=== PATIENT | male | born 1945 | race Caucasian/White ===

== ENCOUNTER 2017-04-28 21:23 | Emergency (ER) | payer BC ==
[~2017-04-28] VITALS: Ht 180.3 cm; Wt 111.9 kg
[~2017-04-28 21:23] MED LIST: DOXYCYCLINE HYCLATE 100 MG CAP PO ONE
[2017-04-28 21:28] VITALS: TEMP 36.7; Ht 180.3 cm; Wt 111.9 kg
[2017-04-28] MEDS ORDERED: SODIUM CHLORIDE 0.9% 500ML 500 ML IV STA (21:47)
[2017-04-28] MEDS ORDERED: HYDROmorphone INJ 1 MG/ML SYR IV STA (21:47)
[2017-04-28] MEDS ORDERED: ONDANSETRON INJ 2 MG/ML 2 ML VIAL IV STA (21:47)
--- NOTE | 2017-04-28 21:59 | EMERGENCY ROOM VISIT NOTE ---
History Report prepared by Radha: Mandie Sofia Under the Supervision of: Dr. Jose Carlos Graff M.D. First contact with patient: 21:36 Chief Complaint: FOOT PAIN Stated Complaint: DISCOLORATION OF FEET W/PAIN,SENT BY History of Present Illness The patient is a 71 year old male who presents to the Emergency Room with complaints of constant bilateral foot pain beginning 1 week ago. The patient states that he has been having foot pain for 1 week. He complains of discoloration and reports that he was seen by his doctor and they thought that it was his diabetes and he was placed on Lyrica. He notes that he had an arterial ultrasound this morning that showed some occlusion and was told to come in to the ED. 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 He rates his pain as a 9/10 in severity. Source of History: patient Onset: 1 week ago Position: foot (bilateral) Symptom Intensity: 9/10 Timing: constant Note: Pt complains of discoloration. Review of Systems See HPI for pertinent positives & negatives. A total of 10 systems reviewed and were otherwise negative. Past Medical & Surgical Medical Problems: (1) Atrial fibrillation (2) Diabetes (3) Heart disease (4) Pacemaker Surgical Problems: (1) H/O heart artery stent Family History Cancer Diabetes mellitus Heart disease Hypertension Lung disease Social History Smoking Status: Never Smoker Smokeless Tobacco Use: No Alcohol Use: occasionally Marital Status: Housing Status: lives with significant other Occupation Status: retired Current/Historical Medications Scheduled Amiodarone Hcl (Cordarone), 200 MG PO DAILY Aspirin (Aspirin Ec), 81 MG PO DAILY Atorvastatin (Lipitor), 40 MG PO DAILY Budesonide/Formoterol Fumarate (Symbicort 80/4.5 Inhaler), 2 PUFFS INH BID Ezetimibe (Zetia), 10 MG PO DAILY Glipizide Xl (Glucotrol Xl), 10 MG PO QAM Glipizide Xl (Glucotrol Xl), 5 MG PO QPM Insulin Glargine (Lantus Solostar), 25 UNITS SQ QAM Insulin Lispro (Human) (Humalog Kwikpen), SQ AC Metoprolol Succinate (Toprol Xl), 50 MG PO DAILY Nitroglycerin (Nitrostat), 0.4 MG UT PRN Omeprazole (Prilosec), 20 MG PO DAILY Pregabalin (Lyrica), 50 MG PO BID Sertraline (Zoloft), 50 MG PO HS Warfarin Sodium (Coumadin), 1.5 MG PO MON&FRI Warfarin Sodium (Coumadin), 3 MG PO 5XWK Scheduled PRN Albuterol Hfa (Ventolin Hfa), 2 PUFFS INH Q6H PRN for SOB/Wheezing Allergies Coded Allergies: No Known Allergies (Unverified , 04/28/17) Physical Exam Vital Signs Date Time Temp Pulse Resp B/P (MAP) Pulse Ox O2 Delivery O2 Flow Rate FiO2 04/29/17 00:22 60 16 149/85 93 04/28/17 23:44 60 16 158/85 95 Room Air 04/28/17 23:00 60 18 131/74 97 Room Air 04/28/17 22:38 60 04/28/17 22:22 95 Nasal Cannula 2.0 04/28/17 22:18 62 14 126/63 85 Room Air 04/28/17 21:28 36.7 72 18 110/67 95 Room Air Physical Exam GENERAL: Patient is a healthy-appearing well-nourished male HEAD: Normocephalic atraumatic EYES: Ocular movements intact pupils equal and react to light OROPHARYNX mucous membranes are moist no exudates present no erythema or edema present NECK: Supple no nuchal rigidity CHEST: Good equal expansion LUNGS: Clear and equal to auscultation CARDIAC: Normal S1 and S2 ABDOMEN: Soft nontender no guarding BACK: No CVA tenderness EXTREMITIES: I was able to Doppler the posterior tibial and dorsal pedal pulses. NEURO: Patient is following commands and answering questions appropriately. Alert and oriented x3 Cranial Nerves 2-12 grossly intact Medical Decision & Procedures Laboratory Results 04/28/17 21:50 Red Blood Count 3.57, Mean Corpuscular Volume 95.8, Mean Corpuscular Hemoglobin 30.8, Mean Corpuscular Hemoglobin Concent 32.2, Mean Platelet Volume 9.7, Neutrophils (%) (Auto) 60.2, Lymphocytes (%) (Auto) 22.5, Monocytes (%) (Auto) 13.6, Eosinophils (%) (Auto) 2.7, Basophils (%) (Auto) 0.3, Neutrophils # (Auto ) 4.28, Lymphocytes # (Auto) 1.60, Monocytes # (Auto) 0.97, Eosinophils # (Auto ) 0.19, Basophils # (Auto) 0.02 04/28/17 21:50 Test 04/28/17 21:50 04/28/17 22:00 White Blood Count 7.11 K/uL (4.8-10.8) Red Blood Count 3.57 M/uL (4.7-6.1) Hemoglobin 11.0 g/dL (14.0-18.0) Hematocrit 34.2 % (42-52) Mean Corpuscular Volume 95.8 fL (80-100) Mean Corpuscular Hemoglobin 30.8 pg (25-34) Mean Corpuscular Hemoglobin Concent 32.2 g/dl (32-36) Platelet Count 166 K/uL (130-400) Mean Platelet Volume 9.7 fL (7.4-10.4) Neutrophils (%) (Auto) 60.2 % Lymphocytes (%) (Auto) 22.5 % Monocytes (%) (Auto) 13.6 % Eosinophils (%) (Auto) 2.7 % Basophils (%) (Auto) 0.3 % Neutrophils # (Auto) 4.28 K/uL (1.4-6.5) Lymphocytes # (Auto) 1.60 K/uL (1.2-3.4) Monocytes # (Auto) 0.97 K/uL (0.11-0.59) Eosinophils # (Auto) 0.19 K/uL (0-0.5) Basophils # (Auto) 0.02 K/uL (0-0.2) RDW Standard Deviation 53.3 fL (36.4-46.3) RDW Coefficient of Variation 15.1 % (11.5-14.5) Immature Granulocyte % (Auto) 0.7 % Immature Granulocyte # (Auto) 0.05 K/uL (0.00-0.02) Prothrombin Time 40.4 SECONDS (9.0-12.0) Prothromb Time International Ratio 3.6 (0.9-1.1) Activated Partial Thromboplast Time 55.6 SECONDS (21.0-31.0) Partial Thromboplastin Ratio 2.1 Est Creatinine Clear Calc Drug Dose 35.0 ml/min Estimated GFR () 29.1 Estimated GFR (Non- 25.1 BUN/Creatinine Ratio 15.2 (10-20) Calcium Level 8.3 mg/dl (8.5-10.1) Total Bilirubin 0.4 mg/dl (0.2-1) Direct Bilirubin 0.1 mg/dl (0-0.2) Aspartate Amino Transf (AST/SGOT) 37 U/L (15-37) Alanine Aminotransferase (ALT/SGPT) 44 U/L (12-78) Alkaline Phosphatase 109 U/L (45-117) Total Protein 7.3 gm/dl (6.4-8.2) Albumin 2.9 gm/dl (3.4-5.0) Lipase 55 U/L (73-393) Bedside Hemoglobin 10.9 g/dl (14.0-18.0) Bedside Hematocrit 32 % (42-52) Bedside Sodium 141 mEq/L (135-144) Bedside Potassium 3.8 mEq/L (3.3-5.0) Bedside Chloride 106 mEq/L (101-112) Bedside Total CO2 23 mEq/l (24-31) Anion Gap 17.0 mmol/L (16-25) Bedside Blood Urea Nitrogen 36 mg/dl (7-18) Bedside Creatinine 2.3 mg/dl (0.6-1.3) Bedside Glucose (other) 136 mg/dl (70-99) Bedside Ionized Calcium (Nikky) 1.11 mmol/l (1.12-1.32) Labs reviewed by ED physician. Medications Administered Medications (Trade) Dose Ordered Sig/Marti Route Start Time Stop Time Status Last Admin Dose Admin Hydromorphone HCl (Dilaudid Inj) 1 mg NOW STAT IV 04/28/17 21:47 04/28/17 21:48 DC 04/28/17 22:12 1 MG Sodium Chloride 500 ml @ 999 mls/hr Q31M STAT IV 04/28/17 21:47 04/28/17 22:17 DC 04/28/17 22:11 999 MLS/HR Ondansetron HCl (Zofran Inj) 4 mg NOW STAT IV 04/28/17 21:47 04/28/17 21:48 DC 04/28/17 22:12 4 MG Piperacillin Sod/ Tazobactam Sod (Zosyn Iv) 4.5 gm NOW STAT IV 04/28/17 22:40 04/28/17 22:42 DC 04/28/17 22:56 4.5 GM Doxycycline Hyclate (Vibramycin Cap) 100 mg NOW ONCE PO 04/28/17 00:15 04/29/17 00:02 DC 04/29/17 00:16 100 MG Tramadol HCl (Ultram Home Pack) 1 homepack NOW ONCE PO 04/29/17 00:15 04/29/17 00:16 DC 04/29/17 00:16 1 HOMEPACK ED Course 2135: Past medical records reviewed. The patient was evaluated in room C2. A complete history and physical examination was performed. 2146: Zofran Inj 4mg IV, Sodium Chloride 500 ml @ 999 mls/hr IV, Dilaudid Inj 1mg IV. 2211: Per review, the patient's artery has been occluded since 2015. 2239: Vancomycin HCl 1gm IV, Zosyn IV 4.5gm IV. 2240: I spoke to Dr. Up about the patients case, he has agreed to evaluate the patient for further management and care. 2249: Upon reexamination the patient is doing well . I discussed results and treatment plan with the patient. He verbalizes agreement and understanding. I spoke with Dr. Up from the [facility] Hospitalist Service. The patient will be evaluated for further management. Medical Decision Differential diagnosis: Etiologies such as DVT, musculoskeletal, infection, joint effusion, trauma, lymphedema, idiopathic, CHF, as well as others were entertained.. Medication Reconciliation: I attest that I have personally reviewed the patient' s current medication list Blood Pressure Screening: Patient was found to have normal blood pressure on screening and does not require follow up. This is a 71-year-old who presents emergency department complaining of right foot pain. The patient had an outpatient ultrasound done down at [place] which is concerning for a right posterior tibial artery occlusion. In reviewing this patient's chart he had an ultrasound performed 2016 which showed same occlusion. I suspect that this is chronic. In addition the patient has good distal pulses in the foot that I am able to Doppler on exam. He does appear to have areas of cellulitis therefore I did discuss the case with the hospitalist service Consults Time Called: 2239 Consulting Physician: Dr. Up - [facility] Returned Call: [address] Up about the patients case, he has agreed to evaluate the patient for further management and care. Impression Primary Impression: Cellulitis Additional Impression: Leg pain Scribe Attestation The scribe's documentation has been prepared under my direction and personally reviewed by me in its entirety. I confirm that the note above accurately reflects all work, treatment, procedures, and medical decision making performed by me. Departure Information Dispostion Being Evaluated By Hospitalist Referrals Shakeel Costa D.O. (PCP) Patient Instructions My [facility] Problem Qualifiers Primary Impression: Cellulitis Site of cellulitis: extremity Site of cellulitis of extremity: lower extremity Laterality: right Qualified Codes: L03.115 - Cellulitis of right lower limb Additional Impression: Leg pain Laterality: right Qualified Codes: M79.604 - Pain in right leg
[2017-04-28 22:01] LABS: BASO % 0.3 %; BASO ABS # 0.02 K/uL (0-0.2); COMPLETE YES; EOS % 2.7 %; HEMATOCRIT 34.2 % (42-52); IG% 0.7 %; LYMPH % 22.5 %; MEAN CELL VOLUME 95.8 fL (80-100); MEAN CORPUSCULAR HEMOGLOBIN 30.8 pg (25-34); MEAN CORPUSCULAR HGB CONC 32.2 g/dl (32-36); MEAN PLATELET VOLUME 9.7 fL (7.4-10.4); MONO % 13.6 %; NEUT % 60.2 %; PLATELET COUNT 166 K/uL (130-400); RED BLOOD COUNT 3.57 M/uL (4.7-6.1); WHITE BLOOD COUNT 7.11 K/uL (4.8-10.8)
[2017-04-28 22:11] LABS: ISTAT CREATININE 2.3 mg/dl (0.6-1.3); ISTAT HEMOGLOBIN 10.9 g/dl (14.0-18.0); ISTAT IONIZED CALCIUM 1.11 mmol/l (1.12-1.32)
[2017-04-28 22:21] LABS: BUN/CREATININE RATIO 15.2 (10-20); CALCIUM 8.3 mg/dl (8.5-10.1); CREATININE 2.5 mg/dl (0.60-1.40); PARTIAL THROMBOPLASTIN RATIO 2.1; POTASSIUM 3.8 mmol/L (3.5-5.1); PROTHROMBIN TIME (PATIENT) 40.4 SECONDS (9.0-12.0)
[2017-04-28 22:32] LABS: INR 3.6 (0.9-1.1)
[2017-04-28] MEDS: VANCOMYCIN 1GM/270ML NSS IV STA ×2 (22:40→22:57)
[2017-04-28] MEDS ORDERED: PIPERACILLIN/TAZOBACTAM 4.5 GM/100ML D5W IV STA (22:40)
[2017-04-28] MEDS ORDERED: SYMIN/8045 INH (22:57)
[2017-04-28] MEDS ORDERED: MELA3TAB12 PO (22:57)
[2017-04-28] MEDS ORDERED: LISI2.5T5 PO (22:57)
[2017-04-28] MEDS ORDERED: GLIP2.5T11 PO (22:57)
[2017-04-28] MEDS ORDERED: WARF3TAB PO ×2 (22:57→23:10)
[2017-04-28] MEDS ORDERED: ATOR-24 PO (22:57)
[2017-04-28] MEDS ORDERED: INSU100I2 SQ (23:07)
[2017-04-28] MEDS ORDERED: AMIO200T4 PO (23:07)
[2017-04-28] MEDS ORDERED: GLIP1TAB61 PO ×2 (23:07)
[2017-04-28] MEDS ORDERED: VNTHFA/IN INH (23:07)
[2017-04-28] MEDS ORDERED: METO-217 PO (23:07)
[2017-04-28] MEDS ORDERED: NTRGSL/4 UT (23:07)
[2017-04-28] MEDS ORDERED: ASPI81TA28 PO (23:07)
[2017-04-28] MEDS ORDERED: PRLSR20 PO (23:07)
[2017-04-28] MEDS ORDERED: INSDGIPEN SQ (23:07)
[2017-04-28] MEDS ORDERED: EZET10TA63 PO (23:10)
[2017-04-28] MEDS ORDERED: LYR50 PO (23:10)
[2017-04-28] MEDS ORDERED: SERT50TA PO (23:10)
--- NOTE | 2017-04-28 23:41 | DIAGNOSTIC IMAGING REPORT ---
SINGLE VIEW CHEST CLINICAL HISTORY: Hypoxia. FINDINGS: An AP, portable, upright chest radiograph is obtained. No prior studies are available for comparison at the time of dictation. The examination is degraded by portable technique and patient rotation. A 2-lead cardiac pacemaker partially obscures the left upper chest. The heart is enlarged and there is atherosclerotic calcification of the thoracic aorta. The pulmonary vasculature is noncongested. Nonspecific interstitial thickening is noted. Bibasilar atelectasis is observed. There is no airspace consolidation typical for pneumonia or large pleural effusion. No pneumothorax is seen. The skeletal structures are osteopenic. The bony thorax is grossly intact. IMPRESSION: 1. Cardiomegaly and cardiac pacemaker. There is no radiographic evidence of congestive failure. 2. No airspace consolidation or large pleural effusion is identified. Electronically signed by: Jorgito Berrios M.D. 04/28/2017 11:40 PM Dictated Date/Time: 04/28/2017 11:39 PM
[2017-04-29] MEDS ORDERED: DOXYCYCLINE HYCLATE 100 MG CAP PO SCH
[2017-04-29] MEDS ORDERED: TRAMADOL HCL 50 MG HOME PACK PO ONE (00:15)
[2017-04-29 00:22] VITALS: BP 149/85; PULSE 60; O2SAT 93
--- NOTE | 2017-04-29 00:51 | Medical Consult ---
Consultation Date of Consultation: Apr 29, 2017. Attending Physician: Dr. Jose Carlos Graff Reason for Consultation: Patient seen upon request of Dr. Graff for evaluation of right lower extremity pain/swelling. Patient PCP is Dr. Shakeel Costa. History of Present Illness In the last few days patient noted increased pain and swelling of the right foot and ankle achy different from gout attack as per px. Pain on standing up. No fever no chills. No chest pain no shortness of breath. Patient was seen at PCPs office. Prescribed Keflex for possible infection. Minimal response. Some purplish discoloration on the anterior forefoot. 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 Outpx imaging at [facility] as follows : LE Arterial dopplers : Greater than 50% stenosis of the right popliteal arterial segments. Occlusion of the right posterior tibial artery. No significant stenosis of the left superficial femoral and distal arterial segments. LE ABIs : Medial calcinosis prevents the accurate calculation of ankle brachial index. TBI at rest is .52 on the right and .75 on the left. Waveform analysis and toe brachial index (TBI) are consistent with mild arterial occlusive disease for the right lower extremity. Waveform analysis and toe brachial index (TBI) are normal at rest for the left lower extremity with no evidence of significant arterial occlusive disease. Patient sent to the [facility] for possible vascular surgery evaluation. Patient received IV Zosyn at the ER for cellulitis.. 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), 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 Allergies Coded Allergies: No Known Allergies (Unverified , 04/28/17) Home Medications Current/Historical Medications Scheduled Amiodarone Hcl (Cordarone), 200 MG PO DAILY Aspirin (Aspirin Ec), 81 MG PO DAILY Atorvastatin (Lipitor), 40 MG PO DAILY Budesonide/Formoterol Fumarate (Symbicort 80/4.5 Inhaler), 2 PUFFS INH BID Ezetimibe (Zetia), 10 MG PO DAILY Glipizide Xl (Glucotrol Xl), 10 MG PO QAM Glipizide Xl (Glucotrol Xl), 5 MG PO QPM Insulin Glargine (Lantus Solostar), 25 UNITS SQ QAM Insulin Lispro (Human) (Humalog Kwikpen), SQ AC Metoprolol Succinate (Toprol Xl), 50 MG PO DAILY Nitroglycerin (Nitrostat), 0.4 MG UT PRN Omeprazole (Prilosec), 20 MG PO DAILY Pregabalin (Lyrica), 50 MG PO BID Sertraline (Zoloft), 50 MG PO HS Warfarin Sodium (Coumadin), 1.5 MG PO MON&FRI Warfarin Sodium (Coumadin), 3 MG PO 5XWK Scheduled PRN Albuterol Hfa (Ventolin Hfa), 2 PUFFS INH Q6H PRN for SOB/Wheezing Allergies Coded Allergies: No Known Allergies (Unverified , 04/28/17) Current Inpatient Medications Current Inpatient Medications Medications (Trade) Dose Ordered Sig/Marti Route Start Time Stop Time Status Last Admin Dose Admin Doxycycline Hyclate (Vibramycin Cap) 100 mg BID PO 04/29/17 00:00 04/29/17 23:59 No refill Review of Systems as per history of present illness, all other ROS negative. Physical Exam Date Time Temp Pulse Resp B/P (MAP) Pulse Ox O2 Delivery O2 Flow Rate FiO2 04/29/17 00:22 60 16 149/85 93 04/28/17 23:44 60 16 158/85 95 Room Air 04/28/17 23:00 60 18 131/74 97 Room Air 04/28/17 22:38 60 04/28/17 22:22 95 Nasal Cannula 2.0 04/28/17 22:18 62 14 126/63 85 Room Air 04/28/17 21:28 36.7 72 18 110/67 95 Room Air General Appearance: + obese, + pertinent finding (slightly uncomfortable) Head: normocephalic Eyes: + pertinent finding (pale palpebral conjunctivae, dry mucosa) Neck: + pertinent finding (short) Respiratory/Chest: + pertinent finding (occasional wheeze) Cardiovascular: regular rate, rhythm Abdomen/GI: + distended Extremities/Musculoskelatal: + pertinent finding (venous stasis mal LE , foot swelling) Neurologic/Psych: alert, + pertinent finding (mild hearing impairment) Skin: + pallor Laboratory Results Last 24 Hours Test 04/28/17 21:50 04/28/17 22:00 White Blood Count 7.11 K/uL Red Blood Count 3.57 M/uL Hemoglobin 11.0 g/dL Hematocrit 34.2 % Mean Corpuscular Volume 95.8 fL Mean Corpuscular Hemoglobin 30.8 pg Mean Corpuscular Hemoglobin Concent 32.2 g/dl Platelet Count 166 K/uL Mean Platelet Volume 9.7 fL Neutrophils (%) (Auto) 60.2 % Lymphocytes (%) (Auto) 22.5 % Monocytes (%) (Auto) 13.6 % Eosinophils (%) (Auto) 2.7 % Basophils (%) (Auto) 0.3 % Neutrophils # (Auto) 4.28 K/uL Lymphocytes # (Auto) 1.60 K/uL Monocytes # (Auto) 0.97 K/uL Eosinophils # (Auto) 0.19 K/uL Basophils # (Auto) 0.02 K/uL RDW Standard Deviation 53.3 fL RDW Coefficient of Variation 15.1 % Immature Granulocyte % (Auto) 0.7 % Immature Granulocyte # (Auto) 0.05 K/uL Prothrombin Time 40.4 SECONDS Prothromb Time International Ratio 3.6 Activated Partial Thromboplast Time 55.6 SECONDS Partial Thromboplastin Ratio 2.1 Sodium Level 141 mmol/L Potassium Level 3.8 mmol/L Chloride Level 109 mmol/L Carbon Dioxide Level 24 mmol/L Anion Gap 8.0 mmol/L 17.0 mmol/L Blood Urea Nitrogen 38 mg/dl Creatinine 2.50 mg/dl Est Creatinine Clear Calc Drug Dose 35.0 ml/min Estimated GFR () 29.1 Estimated GFR (Non- 25.1 BUN/Creatinine Ratio 15.2 Random Glucose 134 mg/dl Calcium Level 8.3 mg/dl Total Bilirubin 0.4 mg/dl Direct Bilirubin 0.1 mg/dl Aspartate Amino Transf (AST/SGOT) 37 U/L Alanine Aminotransferase (ALT/SGPT) 44 U/L Alkaline Phosphatase 109 U/L Total Protein 7.3 gm/dl Albumin 2.9 gm/dl Lipase 55 U/L Bedside Hemoglobin 10.9 g/dl Bedside Hematocrit 32 % Bedside Sodium 141 mEq/L Bedside Potassium 3.8 mEq/L Bedside Chloride 106 mEq/L Bedside Total CO2 23 mEq/l Bedside Blood Urea Nitrogen 36 mg/dl Bedside Creatinine 2.3 mg/dl Bedside Glucose (other) 136 mg/dl Bedside Ionized Calcium (Nikky) 1.11 mmol/l Assessment & Plan ASSESSMENT AND RECOMMENDATIONS : Painful right foot swelling secondary to cellulitis Failed outpatient treatment w/ Keflex Patient not septic. Not typical gout attack as per patient. Progression of PAD possibly contributing to symptoms although examination negative for critical limb ischemia owing to collateral circulation and therapeutic anticoagulation. RLE is warm and pulses appreciated at the ER. Patient given option of inpatient stay versus home treatment with alternative antibiotic. Patient opted for the latter. Doxycycline trial 100 mg by mouth twice a day for 1 week. Tramadol 25 mg by mouth every 4 hours as needed for pain not relieved by Tylenol. Local measures for cellulitis. Outpatient follow-up with patient's Vascular Surgeon at [facility]. ([facility] Vascular Surgeon unavailable until May 03, 2017 as per schedule.) Patient counselled to return to ER if with progression of R foot swelling, pain , fever or chills, or the note of cool, pulseless extremities. Plan discussed with patient and who were amenable to the plan of care. Thank you very much this consultation.
== END 2017-04-29 00:23 | disposition home or self-care (01) ==
LOC: C.EDB 21:24 → C.EDC 04-29 00:23
DX: L03.115 Cellulitis of right lower limb (principal); M79.604 Pain in right leg; I48.91 Unspecified atrial fibrillation; E11.9 Type 2 diabetes mellitus without complications; I51.9 Heart disease, unspecified; Z83.3 Family history of diabetes mellitus; Z82.49 Family history of ischemic heart disease and other diseases of the circulatory system; Z79.82 Long term (current) use of aspirin; Z79.4 Long term (current) use of insulin; Z79.01 Long term (current) use of anticoagulants; Z51.81 Encounter for therapeutic drug level monitoring

== ENCOUNTER 2019-03-21 20:30 | Inpatient (IN) ==
[2019-03-21] MEDS ORDERED: CEFEPIME 2,000 MG/20 ML VIAL IV STA (20:42)
[2019-03-21 21:25] LABS: Basophils # (auto) 0.04 K/uL (0-0.2); Basophils % (auto) 0.6 %; Eosinophils # (auto) 0.43 K/uL (0-0.5); Hematocrit (blood only) 38.9 % (42-52); Hemoglobin 13.5 g/dL (14.0-18.0); Immature Granulocytes # (auto) 0.02 K/uL (0.00-0.02); Immature Granulocytes % (auto) 0.3 %; Lymphocytes # (auto) 1.87 K/uL (1.2-3.4); Lymphocytes % (auto) 25.9 %; Mean Corpuscular Hgb Conc 34.7 g/dL (32-36); Mean Corpuscular Volume 89.6 fL (80-100); Mean Platelet Volume 9.9 fL (7.4-10.4); Monocytes # (auto) 0.73 K/uL (0.11-0.59); Monocytes % (auto) 10.1 %; Neutrophils # (auto) 4.13 K/uL (1.4-6.5); Neutrophils % (auto) 57.1 %; Platelet Count 185 K/uL (130-400); RDW Coefficient of Variation 14.4 % (11.5-14.5); RDW Standard Deviation 46.9 fL (36.4-46.3); Red Blood Count 4.34 M/uL (4.7-6.1); White Blood Count 7.22 K/uL (4.8-10.8)
--- NOTE | 2019-03-21 21:26 | Emergency Department Note ---
Entered by Sarah Robles acting as a scribe for History of Present Illness General Chief complaint: Abnormal Labs/Diagnostic Testing Stated complaint: POSITIVE BLOOD CULTURES Time Seen by Provider: 03/21/19 20:41 Source: patient History of Present Illness Onset (ago): hour(s) (today) Location: chest Pain Consistency: + other (episode) Quality: + other (abnormal labs ) Associated symptoms: + other (positive intermittent feeling of "needles" in left arm; negative dental pain); no fever/chills The patient is a 73 year old male who presents to the Emergency Room with complaints of an episode of abnormal labs that occurred today. He states that he has positive blood cultures. The patient states that he has an intermittent feeling of "needles" throughout his left arm, and denies fevers and chills. The patient states that he has a pacemaker. The patient denies dental pain or recent dental procedures. He states that he recently had his foot operated on, and states that he has a history of osteomyelitis from about one year ago. The patient had a fall about 2 weeks ago and had left chest pain. He had a CT of the chest as an outpatient by PCP to rule out rib fractures. This CT showed no rib fractures, but showed concern for an infection or cancer, so the patient was sent to the ED. The patient was seen by Dr. Carbajal yesterday. The patient had no complaints at this time except for chest discomfort. Blood cultures were done yesterday that came back positive today. The patient was called to return to the ED. Home Medications Home Medications Medication Instructions Recorded Confirmed Type amiodarone 200 mg PO DAILY 03/20/19 03/21/19 History apixaban [Eliquis] 5 mg PO BID 03/20/19 03/21/19 History atorvastatin 40 mg PO DAILY 03/20/19 03/21/19 History duloxetine 60 mg PO DAILY 03/20/19 03/21/19 History ezetimibe 10 mg PO DAILY 03/20/19 03/21/19 History glipizide 5 mg PO QPM 03/20/19 03/21/19 History glipizide 10 mg PO QAM 03/20/19 03/21/19 History hydrocodone-acetaminophen 1 tab PO UD PRN 03/20/19 03/21/19 History insulin aspart U-100 [Novolog 1 unit SUBCUT UD 03/20/19 03/21/19 History Flexpen U-100 Insulin] levothyroxine 100 mcg PO DAILY 03/20/19 03/21/19 History metoprolol succinate 50 mg PO DAILY 03/20/19 03/21/19 History omeprazole 20 mg PO DAILY 03/20/19 03/21/19 History sertraline 50 mg PO DAILY 03/20/19 03/21/19 History vitamins A,C,V-bjcv-ehooeu 1 tab PO BID 03/20/19 03/21/19 History [PreserVision AREDS] insulin glargine [Basaglar KwikPen 25 unit SUBCUT HS 03/21/19 03/21/19 History U-100 Insulin] Allergies Allergy/AdvReac Type Severity Reaction Status Date / Time No Known Allergies Allergy Unverified 03/21/19 21:18 Past Med/Surg History Medical History Diabetes (Chronic) Heart disease (Chronic) Pacemaker (Chronic) Atrial fibrillation (Chronic) Surgical History H/O heart artery stent (Chronic) Social History Feels Safe at Home: Yes Smoking Status: Former smoker Review of Systems See HPI for pertinent positives & negatives. and A total of 10 systems reviewed and were otherwise negative Physical Exam Vital Signs Vital Signs - 24 hr 03/21/19 20:36 03/21/19 21:59 Temperature 36.7 C Temperature Source Oral Sepsis Recent Fever Within 48 Hours No Sepsis New/Unexplained Change in Mental Status No Sepsis Action Taken by Nursing No Action Required Pulse Rate 97 H Pulse Rate [Right Radial] 94 H Respiratory Rate 20 20 Blood Pressure 127/78 Blood Pressure [Left Arm] 142/93 H Blood Pressure Mean 94 Blood Pressure Mean [Left Arm] 109 Blood Pressure Position Sitting Pulse Oximetry 96 93 Oxygen Delivery Method Room Air GENERAL: Patient is in no acute distress. HEENT: No acute trauma, normocephalic atraumatic, mucous membranes moist, no nasal congestion, no scleral icterus. NECK: No stridor, no adenopathy, no meningismus, trachea is midline. LUNGS: Clear to auscultation bilaterally, no wheeze, no rhonchi, breath sounds equal. HEART: Subtle systolic murmur. Regular rate and rhythm. Without murmurs gallops or rubs. ABDOMEN: Soft, nontender, bowel sounds positive, no hernias, no peritonitis. EXTREMITIES: Brace on the right forearm and wrist. Some mild chronic lower extremity skin changes. No significant pedal edema. NEUROLOGIC: Oriented x 3, no acute motor or sensory deficits, no focal weakness. SKIN: No rash, no jaundice, no diaphoresis. Course 2044: The patient was evaluated in room C10, and a complete history and physical examination were performed. 2056: [facility] sana for further evaluation. Consultations Consultation #1: I [facility] the [facility] for further evaluation. Time: 20:57 Administered Medications Discontinued Medications Cefepime HCl (Maxipime) 2,000 mg in 20 mls @ 5 mls/min IV NOW STA; Protocol Stop: 03/21/19 20:45 Last Admin: 03/21/19 21:57 Dose: 5 mls/min Documented by: [id number] Medical Decision Making Differential Diagnosis Differential diagnoses include endocarditis, bacteremia, septic emboli, cellulitis, osteomyelitis, pneumonia, UTI, and others were considered. Medical Records Attestation: I reviewed the patient's medical records. Home Medications Current Medication List: was personally reviewed by me Laboratory Data Attestation: I reviewed the patient's lab results. Result diagrams: 03/21/19 21:07 Lab Results 03/21/19 Range/Units 21:07 WBC 7.22 (4.8-10.8) K/uL RBC 4.34 L (4.7-6.1) M/uL Hgb 13.5 L (14.0-18.0) g/dL Hct 38.9 L (42-52) % MCV 89.6 (80-100) fL MCH 31.1 (25-34) pg MCHC 34.7 (32-36) g/dL RDW Std Deviation 46.9 H (36.4-46.3) fL RDW Coeff of Anshul 14.4 (11.5-14.5) % Plt Count 185 (130-400) K/uL MPV 9.9 (7.4-10.4) fL Immature Gran % (Auto) 0.3 % Neut % (Auto) 57.1 % Lymph % (Auto) 25.9 % [place] % (Auto) 10.1 % Eos % (Auto) 6.0 % Baso % (Auto) 0.6 % Immature Gran # (Auto) 0.02 (0.00-0.02) K/uL Neut # (Auto) 4.13 (1.4-6.5) K/uL Lymph # (Auto) 1.87 (1.2-3.4) K/uL [place] # (Auto) 0.73 H (0.11-0.59) K/uL Eos # (Auto) 0.43 (0-0.5) K/uL Baso # (Auto) 0.04 (0-0.2) K/uL Blood Pressure Blood Pressure Findings: Elevated blood pressure Blood Pressure Disposition: further management by hospitalist IGOR Narrative There is no leukocytosis. No concerning anemia. The patient had a normal platelet count. Repeat blood cultures were ordered, the results are of course pending. The patient returns today because of a 2+ blood cultures that were drawn yesterday. Yesterday, he was noted to have a high sed rate and CRP. His white count though was normal and he really had no complaints of fevers, no chills, no sweats. He was not short of breath. A chest CT that was done as an outpatient was concerning for septic emboli versus malignancy. Work-up yesterday did not show any source for malignancy. As the patient was feeling well, he was d ischarged. He was called today to return to the hospital because of the positive blood culture results. Patient feels the same as he did yesterday, he really has no complaints except for some left anterior chest pain from his fall. Given the positive blood cultures and the high sed rate and the findings on chest CT, I am concerned about endocarditis. Patient received IV cefepime 2 g. I spoke to the patient at length as well as to his . I spoke to the case loader operator. The on-call hospitalist was consulted. Impression & Plan Bacteremia, Abnormal chest CT, Positive blood cultures, Contusion of left chest wall Discharge Plan Visit Data Chief Complaint: Abnormal Labs/Diagnostic Testing Stated Complaint: POSITIVE BLOOD CULTURES ED Provider: Feese,Jorgito J Discharge Problem: Bacteremia, Abnormal chest CT, Positive blood cultures, Contusion of left chest wall Patient Disposition: Being Evaluated by Hospitalist Forms Stand Alone Forms: [facility] Prescriptions Prescriptions: No Action atorvastatin 40 mg tablet 40 mg PO DAILY RF: 0 amiodarone 200 mg tablet 200 mg PO DAILY RF: 0 metoprolol succinate 100 mg tablet extended release 24 hr 50 mg PO DAILY RF: 0 glipizide 5 mg tablet extended release 24hr 10 mg PO QAM RF: 0 glipizide 5 mg tablet extended release 24hr 5 mg PO QPM RF: 0 levothyroxine 100 mcg tablet 100 mcg PO DAILY RF: 0 omeprazole 20 mg Capsule,Delayed Release(Dr/Ec) 20 mg PO DAILY RF: 0 sertraline 50 mg tablet 50 mg PO DAILY RF: 0 ezetimibe 10 mg tablet 10 mg PO DAILY RF: 0 duloxetine 60 mg capsule,delayed release(DR/EC) 60 mg PO DAILY RF: 0 PreserVision AREDS [id number] Tablet 1 tab PO BID RF: 0 Eliquis 5 mg tablet 5 mg PO BID RF: 0 hydrocodone-acetaminophen 5-325 mg tablet 1 tab PO UD PRN (Reason: Pain) RF: 0 Novolog Flexpen U-100 Insulin 100 unit/mL (3 mL) insulin pen 1 unit subcut UD RF: 0 Basaglar KwikPen U-100 Insulin 100 unit/mL (3 mL) insulin pen 25 unit subcut HS RF: 0 Referrals Referrals: Shakeel Costa D.O. [Primary Care Provider] - Discharge Problem: Contusion of left chest wall Qualifiers: Encounter type: initial encounter Qualified Code(s): S20.212A - Contusion of left front wall of thorax, initial encounter The scribe's documentation has been prepared under my direction and personally reviewed by me in its entirety. I confirm that the note above accurately reflects all work, treatment, procedures, and medical decision making performed by me.
--- NOTE | 2019-03-21 22:53 | History & Physical Report ---
Date of Service March 21, 2019 Assessment & Plan (1) Gram-positive bacteremia: 73-year-old male with a past medical history of hypertension, hyperlipidemia, type 2 diabetes, osteomyelitis of his right first toe, CAD status post stents, atrial fibrillation s/p implanted pacemaker presents follo wing incidental positive blood cultures drawn yesterday in the ED. Patient was in the ED yesterday following up for concerning CT scan of the chest that showed bilateral nodularity. Gram-positive bacteremia CT scan of the chest showing nodularity is suspicious for septic emboli versus malignancy Repeat blood cultures, treat empirically with Vanco/rocephin No signs of sepsisafebrile, normal white count, stable vitals Source unknown, but history of osteomyelitis. Also has an implantable pacemaker. Transthoracic echo ordered. No clinical signs of endocarditis History of osteomyelitis, right toe, first digit Obtain x-ray of toes, right first digit Recent mechanical fall and subsequent right arm pain Obtain x-ray of the right wrist, forearm Type 2 diabetes Sliding scale insulin, glargine Chronic kidney disease -Creatinine at baseline Hypertension/atrial fibrillation/hyperlipidemia/coronary disease Continue amiodarone, apixaban, atorvastatin, Zetia, metoprolol Depression Continue duloxetine, sertraline Hypothyroidism Continue levothyroxine 100 mcg DVT prophylaxis Eliquis 5 mg twice daily CODE STATUS DNR/DNI (2) Abnormal chest CT: (3) Bacteremia: (4) Positive blood cultures: (5) HTN (hypertension): (6) Atrial fibrillation: (7) Type 2 diabetes mellitus: (8) Hyperlipidemia: (9) CAD (coronary artery disease): (10) History of osteomyelitis: History of Present Illness Extended extended Primary Care Provider: Shakeel Costa 73-year-old male with a past medical history of hypertension, hyperlipidemia, type 2 diabetes, osteomyelitis of his right first toe, CAD status post stents, atrial fibrillation s/p implanted pacemaker presents following incidental positive blood cultures drawn yesterday in the ED. Patient was in the ED yesterday following up for concerning CT scan of the chest that showed bilateral nodularity. Patient reports a mechanical fall 10 days ago with contusion to his left chestthis was the reason for the chest CT. Patient endorses a history of osteomyelitis of the right first toe approximately 2 years agohe was treated with extended course of IV antibiotics and debridement. He reports a [id number] smoking history. Today, the patient is asymptomatic. He denies the following symptoms: Shortness of breath, cough, dysuria, rash, joint pain, joint swelling, abdominal pain, nausea/vomiting/diarrhea and heart palpitations. Allergies Allergy/AdvReac Type Severity Reaction Status Date / Time No Known Allergies Allergy Unverified 03/21/19 21:18 Home Medications Home Medications Medication Instructions Recorded Confirmed Type amiodarone 200 mg PO DAILY 03/20/19 03/21/19 History apixaban [Eliquis] 5 mg PO BID 03/20/19 03/21/19 History atorvastatin 40 mg PO DAILY 03/20/19 03/21/19 History duloxetine 60 mg PO DAILY 03/20/19 03/21/19 History ezetimibe 10 mg PO DAILY 03/20/19 03/21/19 History glipizide 5 mg PO QPM 03/20/19 03/21/19 History glipizide 10 mg PO QAM 03/20/19 03/21/19 History hydrocodone-acetaminophen 1 tab PO UD PRN 03/20/19 03/21/19 History insulin aspart U-100 [Novolog 1 unit SUBCUT UD 03/20/19 03/21/19 History Flexpen U-100 Insulin] levothyroxine 100 mcg PO DAILY 03/20/19 03/21/19 History metoprolol succinate 50 mg PO DAILY 03/20/19 03/21/19 History omeprazole 20 mg PO DAILY 03/20/19 03/21/19 History sertraline 50 mg PO DAILY 03/20/19 03/21/19 History vitamins A,C,B-wszy-okgokq 1 tab PO BID 03/20/19 03/21/19 History [PreserVision AREDS] insulin glargine [Basaglar KwikPen 25 unit SUBCUT HS 03/21/19 03/21/19 History U-100 Insulin] Past Med/Surg History Medical History Diabetes (Chronic) Heart disease (Chronic) Pacemaker (Chronic) Atrial fibrillation (Chronic) Surgical History H/O heart artery stent (Chronic) History of open heart surgery PATIENT HAD PLEURACY? WHERE THEY REMOVED HIS HEART AND "CLEANED" FLUID FROM IT Social History Preferred Language: Vincentian Communication Ability: Effective Culled Fruit Packer Required: No Beliefs That Will Affect Care: None Current Living Situation: Spouse Other Information That Helps Us Care for You: No Feels Safe at Home: Yes Safety Concerns: Feels Safe At This Time Smoking Status: Former smoker Tobacco Type: cigarettes Cigarettes Per Day: 40 Do You Dip or Chew Tobacco: No Smoking End Date: 1991 Second Hand Exposure: No Tobacco Cessation Education Requested by Patient: No Hx Alcohol Use: Yes Alcohol type: beer Hx Substance Use: Yes substance use type: marijuana Substance Use Type Other:: SPEED Last Used Substance: Unknown Last Used Substance Other:: IT'S BEEN AT LEAST 40 YEARS Review of Systems Review of Systems: All systems reviewed & are unremarkable except as noted in HPI & below Physical Exam Constitutional: WD/WN, vitals as above Eyes: PERRL, conjunctivae normal, anicteric sclerae Poor dentition, no oropharynx lesions or gum swelling ENMT: external ear and nose normal, oropharynx normal Neck: trachea midline, no thyromegaly Respiratory: normal respiratory effort, lungs clear to auscultation Cardiovascular: RRR, no murmur, no edema Gastrointestinal (Abdomen): normal bowel sounds, soft, nontender, no hepatosplenomegaly Musculoskeletal: no cyanosis or clubbing, extremities motor strength 5/5 Skin: no rashes, warm and dry Sunburn on face arms and legs Neurologic: PERRL, EOMI, accommodation nl, no face palsy, no dysarthria Psychiatric: A+Ox3, euthymic affect Results & Data Vital Signs (Past 12 Hours) Vital Signs Temp Pulse Pulse Resp BP BP Pulse Ox 03/21/19 21:59 94 H 20 142/93 H 93 03/21/19 20:36 36.7 C 97 H 20 127/[address] SCAN OF THE ABDOMEN AND PELVIS WITHOUT CONTRAST CLINICAL HISTORY: Multiple pulmonary nodules. Possible metastatic disease. COMPARISON STUDY: CT scan of the chest dated 03/20/2019 TECHNIQUE: CT scan of the abdomen and pelvis was performed from the lung bases to the proximal femurs. Images are reviewed in the axial, sagittal, and coronal planes. IV contrast was not administered for this examination. A dose lowering technique was utilized adhering to the principles of ALARA. CT DOSE: 1255.71 mGy.cm FINDINGS: Lower chest: There are nonspecific bilateral nodular airspace opacities. Liver: The unenhanced liver is normal in size, contour, and attenuation. There is no intrahepatic biliary ductal dilatation. Gallbladder: Unremarkable. Spleen: Normal in size and attenuation. Pancreas: There is fatty atrophy of the pancreas. There are a few calcifications in the region the pancreatic head. No pancreatic masses are visualized. Adrenal glands: Unremarkable. Kidneys: There are bilateral renal vascular calcifications. This makes exclusion of small calculi difficult. There is no hydronephrosis. There is a 1 cm left renal cyst. No ureteral calculi are visualized. Bowel: There are no transition zones indicate bowel obstruction. There is no evidence of acute diverticulitis. The appendix appears normal. Peritoneum: There is no intraperitoneal free air or abdominal ascites. Vasculature: The abdominal aorta is normal in course and caliber. Adenopathy: None. Pelvic viscera: The bladder, and pelvic viscera are unremarkable. Skeletal structures: No destructive osseous lesions are seen. IMPRESSION: 1. No evidence of metastatic disease within the abdomen or pelvis on this noncontrast study 2. No evidence of bowel obstruction. No evidence of free air 3. Normal appendix. No evidence of acute diverticulitis 4. Fatty atrophy the pancreas 5. Nonspecific bilateral nodular airspace opacities at both lung bases Electronically signed by: Jm Clarke M.D. 03/20/2019 8:01 PM cc: ~ XR wrist RT 2V CLINICAL HISTORY: right arm pain pain COMPARISON: None. DISCUSSION: The bones and joint spaces appear intact. There is no evidence of fracture, dislocation or bony disease. There is no evidence for soft tissue swelling. Small old avulsion radial styloid. Soft tissue vascular calcification. Oblique lucency overlying the proximal phalanx fifth finger of the represent overlap artifact and less clinically indicated otherwise IMPRESSION: No acute process. The above report was generated using voice recognition software. It may contain grammatical, syntax or spelling errors. XR toe RT min 2V CLINICAL HISTORY: h/o osteo right 1st digit COMPARISON: None. DISCUSSION: Deformity distal aspect first metatarsal probably secondary to old postinfectious deformity. Cortical evulsion base proximal phalanx potentially subacute. Remaining bony structures show no acute abnormality. IMPRESSION:: 1. Small cortical evulsion considered subacute base proximal phalanx. 2. Findings consistent with old infectious/old posttraumatic deformity distal aspect first metatarsal Supervising Physician Co-Signing Physician Notes 73 y/o M Hx HTN, HLD, DM II, hypothyroid, CAD, AF/pacer, recent osteomyelitis of R 1st toe. The pt suffered a fall the prior week, sustaining trauma to his ch est wall. He had persistent pain and his GP ordered a CT. The CT showed BL nodular lesions concerning for either malignancy or septic emboli. Blood cultures were drawn and returned + for G+ cocci. A CRP and ESR were quite high. Interestingly, he does not report fevers, weakness or other signs consistent with a systemic infection. OE Pleasant, elderly M, AAO x 2, no distress S1,2 - very slight systolic murmur CTA NT, ND No CCE No deficits P: Concern for endocarditis and septic emboli considering + blood cultures. Specific organism is not identified. We will treat empirically with Vanc and Cef - an echo is ordered. AF - cont Eliquis, Metoprolol, Amio CAD - B melia, Statin DM - placed on a SS HTN/HLD - Metoprolol, Lipitor Hypothyroidism - cont Synthroid Resident Activity Tracking Resident Involvement: Resident Care Provided Care Provided: Adult Hospital Medicine
--- NOTE | 2019-03-21 22:58 | XRay Report ---
XR toe RT min 2V CLINICAL HISTORY: h/o osteo right 1st digit COMPARISON: None. DISCUSSION: Deformity distal aspect first metatarsal probably secondary to old postinfectious deformi ty. Cortical evulsion base proximal phalanx potentially subacute. Remaining bony structures show no acute abnormality. IMPRESSION:: 1. Small cortical evulsion considered subacute base proximal phalanx. 2. Findings consistent with old infectious/old posttraumatic deformity distal aspect first metatarsal The above report was generated using voice recognition software. It may contain grammatical, syntax or spelling errors. Electronically signed by: Fransisco Bowles M.D. 03/21/2019 10:55 PM
--- NOTE | 2019-03-21 22:58 | XRay Report ---
XR wrist RT 2V CLINICAL HISTORY: right arm pain pain COMPARISON: None. DISCUSSION: The bones and joint spaces appear intact. There is no evidence of fracture, dislocation o r bony disease. There is no evidence for soft tissue swelling. Small old avulsion radial styloid. Sof t tissue vascular calcification. Oblique lucency overlying the proximal phalanx fifth finger of the r epresent overlap artifact and less clinically indicated otherwise IMPRESSION: No acute process. The above report was generated using voice recognition software. It may contain grammatical, syntax or spelling errors. Electronically signed by: Fransisco Bowles M.D. 03/21/2019 10:57 PM
[2019-03-21] MEDS ORDERED: VANCOMYCIN CONSULT ACTIVE PRN ×2 (23:25→23:26)
[2019-03-21] MEDS ORDERED: VANCOMYCIN HCL 2,000 MG in SODIUM CHLORIDE 0.9% 500 ML IV ONE (23:26)
[2019-03-21] MEDS ORDERED: HYDROCODONE/ACETAMOPHEN 5/325MG TAB PO PRN (23:38)
[2019-03-21] MEDS ORDERED: POLYETHYLENE (MIRALAX) 17 GM PACK PO PRN (23:38)
[2019-03-21] MEDS ORDERED: MAGNESIUM HYDROXIDE SUSP 30 ML UDC PO PRN (23:38)
[2019-03-21] MEDS ORDERED: ALUMINUM/MAGNESIUM SUSP 30 ML UDC PO PRN (23:38)
[2019-03-21] MEDS ORDERED: GLUCAGON FOR INJ 1 MG VIAL IM PRN (23:45)
[2019-03-21] MEDS ORDERED: DEXTROSE 50% 50 ML SYRINGE IV PRN (23:45)
[2019-03-21] MEDS ORDERED: GLUCOSE 10 TABS/TUBE PO PRN (23:45)
[2019-03-21] MEDS ORDERED: GLUCOSE 40% GEL 15 GM TUBE PO PRN (23:45)
[2019-03-21] MEDS ORDERED: CARBOHYDRATES FOR HYPOGLYCEMIA PO PRN (23:45)
[2019-03-22] MEDS ORDERED: INSULIN ASPART 100 UNITS/ML 3 ML PEN SC STA (00:29)
[2019-03-22] MEDS: INSULIN GLARGINE SOLOSTAR 100 UNITS/ML 3 ML PEN SQ SCH ×2 (00:57→21:27)
[2019-03-22] MEDS: INSULIN ASPART 100 UNITS/ML 3 ML PEN SC SCH ×4 (05:57→21:28)
[2019-03-22] MEDS: cefTRIAXone SODIUM 2,000 MG in DEXTROSE 5% 50 ML IV SCH ×2 (05:59→17:36)
[2019-03-22] MEDS: LEVOTHYROXINE SODIUM 100 MCG TABLET PO SCH (06:00)
--- NOTE | 2019-03-22 06:52 | XRay Report ---
XR forearm RT 2V HISTORY: 73 years-old Male rigth arm pain acute right forearm pain COMPARISON: Right wrist radiographs 03/21/2019 TECHNIQUE: 2 views of the right forearm FINDINGS: Extensive peripheral arterial calcifications. Subcortical cystic changes are noted throughout the car pus. Remote radial styloid fracture. Mild radiocarpal osteoarthritis. No acute fracture, dislocation or opaque foreign body identified. IMPRESSION: No acute fracture or dislocation. The above report was generated using voice recognition software. It may contain grammatical, syntax o r spelling errors. Electronically signed by: Jefe Ornelas M.D. 03/22/2019 6:51 AM
[2019-03-22 07:40] LABS: Basophils # (auto) 0.03 K/uL (0-0.2); Basophils % (auto) 0.6 %; Eosinophils # (auto) 0.29 K/uL (0-0.5); Eosinophils % (auto) 5.5 %; Hematocrit (blood only) 36.4 % (42-52); Hemoglobin 12.4 g/dL (14.0-18.0); Immature Granulocytes # (auto) 0.01 K/uL (0.00-0.02); Immature Granulocytes % (auto) 0.2 %; Lymphocytes # (auto) 1.16 K/uL (1.2-3.4); Lymphocytes % (auto) 21.8 %; Mean Corpuscular Hgb Conc 34.1 g/dL (32-36); Mean Corpuscular Volume 89.4 fL (80-100); Mean Platelet Volume 9.7 fL (7.4-10.4); Monocytes # (auto) 0.81 K/uL (0.11-0.59); Monocytes % (auto) 15.3 %; Neutrophils # (auto) 3.01 K/uL (1.4-6.5); Neutrophils % (auto) 56.6 %; Platelet Count 148 K/uL (130-400); RDW Coefficient of Variation 14.4 % (11.5-14.5); RDW Standard Deviation 47.7 fL (36.4-46.3); Red Blood Count 4.07 M/uL (4.7-6.1); White Blood Count 5.31 K/uL (4.8-10.8)
[2019-03-22 08:13] LABS: BUN Creatinine Ratio 17.2 (10-20); Creatinine Clr Calc Pharmacy 43.7 ml/min; Est GFR (African American) 39.9; Est GFR (Non-African American) 34.5
[2019-03-22] MEDS: AMIODARONE 200 MG TAB PO SCH (08:15)
[2019-03-22] MEDS: METOPROLOL SUCC 50MG EXT REL TAB PO SCH (08:15)
[2019-03-22] MEDS: SERTRALINE HCL 50 MG TABLET PO SCH (08:15)
[2019-03-22] MEDS: PANTOprazole 40 MG TAB PO SCH (08:15)
[2019-03-22] MEDS: APIXABAN 5 MG TABLET PO SCH ×2 (08:15→21:27)
[2019-03-22] MEDS: ATORVASTATIN 40 MG TAB PO SCH (08:16)
[2019-03-22] MEDS: EZETIMIBE 10 MG TABLET PO SCH (08:16)
[2019-03-22] MEDS: DULOXETINE HCL 60 MG CAP PO SCH (08:16)
--- NOTE | 2019-03-22 09:12 | Pharmacy Report ---
Pharmacy Abx Initial Consult - Date of Service March 22, 2019 - Pharmacy Dosing Scope Date of Consult: 03/21/19 Consultation requested by: Dr. Nelson Pharmacy is consulted to initiate Vancomycin IV dosing therapy, order appropriate labs and adjust drug dose/frequency. - Subjective The patient is a 73 year old M admitted on 03/21/19 22:25. - Objective Height: 5 ft 11 in Weight: 107 kg Vital Signs (Past 12hrs): Vital Signs Temp Pulse Pulse Pulse Resp BP BP 03/22/19 07:59 36.1 C L 94 H 18 152/87 H 03/22/19 07:28 93 H 03/22/19 04:05 36.6 C 94 H 20 112/68 03/22/19 01:21 93 H 03/21/19 23:39 36.6 C 96 H 20 144/84 H 03/21/19 23:16 80 20 137/88 03/21/19 21:59 94 H 20 142/93 H Pulse Ox 03/22/19 07:59 97 03/22/19 07:28 03/22/19 04:05 93 03/22/19 01:21 03/21/19 23:39 97 03/21/19 23:16 93 03/21/19 21:59 93 Lab Results (24hrs): Laboratory Tests (24 Hours) 03/22/19 03/22/19 03/21/19 07:22 07:22 21:07 WBC 5.31 7.22 Neut # (Auto) 3.01 4.13 Creatinine 1.90 H Est Cr Clr Drug Dosing 43.7 Micro Results: 03/21/19 21:07 Aerobic Blood Culture - Pending Blood 03/21/19 21:38 Aerobic Blood Culture - Pending Blood Anaerobic Blood Culture - Pending - Assessment & Plan Assessment * 73 year old M with PMH Hx of osteomyelitis * Admitted to [facility] with gram-positive bacteremia * Source of infection unknown at this time, repeat blood cultures pending * Pt has implantable pacemaker-- No clinical signs of endocarditis; transthoracic echo ordered Plan Vancomycin IV * Estimated PK Parameters: Vd 0.6 L/kg, Ernesto 0.037 hr-1, t1/2 19 hr * Loading dose: 2000 mg (19 mg/kg) * Maintenance dose: 1500 mg IV (14mg/kg) every 24 hours * Goal trough level: 15 to 20 mcg/mL * Trough level ordered for 03/24 at 2130 * A less than traditional dose and/or extended dosing interval has/have been selected due to likelihood of drug accumulation in obese patient/patient with h/o CKD. Ceftriaxone IV * Consider changing frequency to Q24H if endocarditis ruled out Pharmacy will continue to follow and will adjust dose/frequency as necessary. Thank you.
--- NOTE | 2019-03-22 18:04 | Family Medicine Progress Note ---
Date of Service March 22, 2019 Assessment & Plan (1) Gram-positive bacteremia: 73-year-old male with a past medical history of hypertension, hyperlipidemia, type 2 diabetes, osteomyelitis of his right first toe, CAD status post stents, atrial fibrillation s/p implanted pacemaker presents follo wing incidental positive blood cultures drawn in the ED a few days ago. Drawn as workup for incidental CT findings of chest nodularity, which was done for mechanical fall. Gram-positive bacteremia CT scan of the chest showing nodularity is suspicious for septic emboli versus malignancy Repeat blood cultures, treat empirically with Vanco/rocephin No signs of sepsisafebrile, normal white count, stable vitals Source unknown, but history of osteomyelitis. Also has an implantable pacemaker. Transthoracic echo shows no evidence of thrombus. No clinical signs of e ndocarditis -Consider consulting thoracic surgery or pulm to determine if nodules can be accessible for biopsy/bronchial washings History of osteomyelitis, right toe, first digit x-ray of toes, right first digit normal Recent mechanical fall and subsequent right arm pain x-ray of the right wrist, forearm normal Type 2 diabetes Sliding scale insulin, glargine Chronic kidney disease -Creatinine at baseline Hypertension/atrial fibrillation/hyperlipidemia/coronary disease Continue amiodarone, apixaban, atorvastatin, Zetia, metoprolol Depression Continue duloxetine, sertraline Hypothyroidism Continue levothyroxine 100 mcg DVT prophylaxis Eliquis 5 mg twice daily CODE STATUS DNR/DNI (2) Abnormal chest CT: (3) Bacteremia: (4) Positive blood cultures: (5) HTN (hypertension): (6) Atrial fibrillation: (7) Type 2 diabetes mellitus: (8) Hyperlipidemia: (9) CAD (coronary artery disease): (10) History of osteomyelitis: Supervising Physician Co-Signing Physician Notes Patient seen and examined with Dr. Raman. Agree with history, exam findings, assessment and plan of care as outlined: In brief, Mr. Chaudhari is a 51 year old male with hx of HTN, HLD, DM2, CAD and ischemic cardiomyopathy (EF 15-20%) admitted with fluid overload and hypoglycemia. 1. CHF exacerbation in the setting of ICM (EF 15-20%). Diuresing with IV Lasix. Home Lasix is 40mg PO. Will discuss with cardiology when to start Entresto. Home meds: carvedilol, Lasix 40mg, aldactone 25mg BID. I/Os, daily weights (-1420mL) , watch lytes (K 3.7, Cr 1.1). 2. Scrotal swelling likely secondary to fluid overload. Improving. 3. DM2. Home meds: metformin and glimepiride. On sliding scale insulin. A1C 1 2.4. (last 24 hours, used 0-1-4-3u novolog). On discharge, will restart metformin and plan to start basaglar. Plan to dc glimepiride to minimize hypoglycemia garrett with starting insulin. Pt is appropriate for the basal insulin self titration with appropriate education and is very motivated. 4. CAD/HTN/HLD: linsinopril, carvedilol, atorvastatin, ASA Subjective Patient notes he feels pretty well this morning but reports he didn't feel bad aside from his recent fall. Review of Systems Review of Systems: All systems reviewed & are unremarkable except as noted in HPI & below Constitutional: no fever and no body aches Respiratory: no cough and no dyspnea Cardiovascular: no chest pain and no dyspnea on exertion Gastrointestinal: no abdominal pain Musculoskeletal: + joint pain (R arm pain) Physical Exam Constitutional: WD/WN, vitals as above Eyes: PERRL, conjunctivae normal, anicteric sclerae ENMT: external ear and nose normal, oropharynx normal Neck: normal visual inspection Respiratory: normal respiratory effort, lungs clear to auscultation Cardiovascular: RRR, no murmur, no edema Gastrointestinal (Abdomen): normal bowel sounds, soft, nontender, no hepatosplenomegaly Musculoskeletal: no cyanosis or clubbing, extremities motor strength 5/5 Skin: no rashes, warm and dry Neurologic: PERRL, EOMI, accommodation nl, no face palsy, no dysarthria Psychiatric: A+Ox3, euthymic affect Results & Data Vital Signs (Past 12 Hours) Vital Signs Temp Pulse Pulse Resp BP BP Pulse Ox 03/22/19 15:46 36.4 C L 99 H 18 148/95 H 98 03/22/19 15:45 98 H 03/22/19 11:19 36.4 C L 95 H 20 148/86 H 95 03/22/19 07:59 36.1 C L 94 H 18 152/87 H 97 03/22/19 07:28 93 H Laboratory Results 03/22/19 03/22/19 03/22/19 Range/Units 16:51 11:37 07:22 WBC (4.8-10.8) K/uL RBC (4.7-6.1) M/uL Hgb (14.0-18.0) g/dL Hct (42-52) % MCV (80-100) fL MCH (25-34) pg MCHC (32-36) g/dL RDW Std Deviation (36.4-46.3) fL RDW Coeff of Anshul (11.5-14.5) % Plt Count (130-400) K/uL MPV (7.4-10.4) fL Immature Gran % (Auto) % Neut % (Auto) % Lymph % (Auto) % [place] % (Auto) % Eos % (Auto) % Baso % (Auto) % Immature Gran # (Auto) (0.00-0.02) K/uL Neut # (Auto) (1.4-6.5) K/uL Lymph # (Auto) (1.2-3.4) K/uL [place] # (Auto) (0.11-0.59) K/uL Eos # (Auto) (0-0.5) K/uL Baso # (Auto) (0-0.2) K/uL Sodium 142 (136-145) mmol/L Potassium 4.0 (3.5-5.1) mmol/L Chloride 113 H (98-107) mmol/L Carbon Dioxide 23 (21-32) mmol/L Anion Gap 6.0 (3-11) BUN 33 H (7-18) mg/dl Creatinine 1.90 H (0.6-1.4) mg/dl Est Cr Clr Drug Dosing 43.7 ml/min Est GFR ( Amer) 39.9 Est GFR (Non-Af Amer) 34.5 BUN/Creatinine Ratio 17.2 (10-20) Glucose 232 H (70-99) mg/dl POC Glucose 112 H 129 H (70-99) Calcium 9.0 (8.5-10.1) mg/dl 03/22/19 03/22/19 03/22/19 Range/Units 07:22 05:55 00:38 WBC 5.31 (4.8-10.8) K/uL RBC 4.07 L (4.7-6.1) M/uL Hgb 12.4 L (14.0-18.0) g/dL Hct 36.4 L (42-52) % MCV 89.4 (80-100) fL MCH 30.5 (25-34) pg MCHC 34.1 (32-36) g/dL RDW Std Deviation 47.7 H (36.4-46.3) fL RDW Coeff of Anshul 14.4 (11.5-14.5) % Plt Count 148 (130-400) K/uL MPV 9.7 (7.4-10.4) fL Immature Gran % (Auto) 0.2 % Neut % (Auto) 56.6 % Lymph % (Auto) 21.8 % [place] % (Auto) 15.3 % Eos % (Auto) 5.5 % Baso % (Auto) 0.6 % Immature Gran # (Auto) 0.01 (0.00-0.02) K/uL Neut # (Auto) 3.01 (1.4-6.5) K/uL Lymph # (Auto) 1.16 L (1.2-3.4) K/uL [place] # (Auto) 0.81 H (0.11-0.59) K/uL Eos # (Auto) 0.29 (0-0.5) K/uL Baso # (Auto) 0.03 (0-0.2) K/uL Sodium (136-145) mmol/L Potassium (3.5-5.1) mmol/L Chloride (98-107) mmol/L Carbon Dioxide (21-32) mmol/L Anion Gap (3-11) BUN (7-18) mg/dl Creatinine (0.6-1.4) mg/dl Est Cr Clr Drug Dosing ml/min Est GFR ( Amer) Est GFR (Non-Af Amer) BUN/Creatinine Ratio (10-20) Glucose (70-99) mg/dl POC Glucose 294 H 331 H* (70-99) Calcium (8.5-10.1) mg/dl 03/21/19 Range/Units 21:07 WBC 7.22 (4.8-10.8) K/uL RBC 4.34 L (4.7-6.1) M/uL Hgb 13.5 L (14.0-18.0) g/dL Hct 38.9 L (42-52) % MCV 89.6 (80-100) fL MCH 31.1 (25-34) pg MCHC 34.7 (32-36) g/dL RDW Std Deviation 46.9 H (36.4-46.3) fL RDW Coeff of Anshul 14.4 (11.5-14.5) % Plt Count 185 (130-400) K/uL MPV 9.9 (7.4-10.4) fL Immature Gran % (Auto) 0.3 % Neut % (Auto) 57.1 % Lymph % (Auto) 25.9 % [place] % (Auto) 10.1 % Eos % (Auto) 6.0 % Baso % (Auto) 0.6 % Immature Gran # (Auto) 0.02 (0.00-0.02) K/uL Neut # (Auto) 4.13 (1.4-6.5) K/uL Lymph # (Auto) 1.87 (1.2-3.4) K/uL [place] # (Auto) 0.73 H (0.11-0.59) K/uL Eos # (Auto) 0.43 (0-0.5) K/uL Baso # (Auto) 0.04 (0-0.2) K/uL Sodium (136-145) mmol/L Potassium (3.5-5.1) mmol/L Chloride (98-107) mmol/L Carbon Dioxide (21-32) mmol/L Anion Gap (3-11) BUN (7-18) mg/dl Creatinine (0.6-1.4) mg/dl Est Cr Clr Drug Dosing ml/min Est GFR ( Amer) Est GFR (Non-Af Amer) BUN/Creatinine Ratio (10-20) Glucose (70-99) mg/dl POC Glucose (70-99) Calcium (8.5-10.1) mg/dl Medications Administered Current Inpatient Medications Acetaminophen (Tylenol) 650 mg PO Q4H PRN PRN Reason: Pain or Fever Stop: 04/20/19 23:37 Hydrocodone Bitart/Acetaminophen ([place] 5/325) 1 tab PO Q4H PRN PRN Reason: Pain Stop: 04/04/19 23:37 Al Hydrox/Mg Hydrox/Simethicone (Maalox) 15 ml PO Q4H PRN PRN Reason: Dyspepsia Stop: 04/20/19 23:37 Amiodarone HCl (Cordarone) 200 mg PO DAILY [facility] Stop: 04/21/19 08:59 Last Admin: 03/22/19 08:15 Dose: 200 mg Documented by: Apixaban (Eliquis) 5 mg PO BID [facility] Stop: 04/21/19 08:59 Last Admin: 03/22/19 08:15 Dose: 5 mg Documented by: Atorvastatin Calcium (Lipitor) 40 mg PO DAILY [facility] Stop: 04/21/19 08:59 Last Admin: 03/22/19 08:16 Dose: 40 mg Documented by: Dextrose (Dextrose 50%) 25 - 50 ml IV UD PRN; Protocol PRN Reason: Hypoglycemia Protocol Stop: 04/20/19 23:44 Duloxetine HCl (Cymbalta) 60 mg PO DAILY [facility] Stop: 04/21/19 08:59 Last Admin: 03/22/19 08:16 Dose: 60 mg Documented by: Ezetimibe (Zetia) 10 mg PO DAILY [facility] Stop: 04/21/19 08:59 Last Admin: 03/22/19 08:16 Dose: 10 mg Documented by: Glucagon (Glucagen) 1 mg IM UD PRN; Protocol PRN Reason: Hypoglycemia Protocol Stop: 04/20/19 23:44 Glucose (Glucose 40%) 15 - 30 gm PO UD PRN; Protocol PRN Reason: Hypoglycemia Protocol Stop: 04/20/19 23:44 Glucose (Dex4 Glucose) 4 - 8 tabs PO UD PRN; Protocol PRN Reason: Hypoglycemia Protocol Stop: 04/20/19 23:44 Ceftriaxone Sodium 2,000 mg/ (Dextrose) 70 mls @ 100 mls/hr IV Q12H [facility]; Protocol Stop: 04/05/19 05:59 Last Infusion: 03/22/19 18:28 Dose: Infused Documented by: Vancomycin HCl 1,500 mg/ (Sodium Chloride) 530 mls @ 200 mls/hr IV Q24H [facility]; Protocol Stop: 04/05/19 21:59 Insulin Aspart (Novolog Flexpen) 0 units SC ACHS [facility] Stop: 04/21/19 17:19 Last Admin: 03/22/19 17:36 Dose: Not Given Documented by: Insulin Glargine (Lantus Solostar Pen) 25 units SQ HS [facility] Stop: 04/21/19 00:29 Last Admin: 03/22/19 00:57 Dose: 25 units Documented by: Levothyroxine Sodium (Synthroid) 100 mcg PO DAILYBB [facility] Stop: 04/21/19 06:29 Last Admin: 03/22/19 06:00 Dose: 100 mcg Documented by: Magnesium Hydroxide (Milk Of Magnesia) 30 ml PO Q12H PRN PRN Reason: Constipation Stop: 04/20/19 23:37 Metoprolol Succinate (Toprol Xl) 50 mg PO DAILY [facility] Stop: 04/21/19 08:59 Last Admin: 03/22/19 08:15 Dose: 50 mg Documented by: Miscellaneous (Carbohydrates For Hypoglycemia) 15 - 30 gm PO UD PRN PRN Reason: Hypoglycemia Treatment Stop: 04/20/19 23:44 Miscellaneous Information (Consult) 1 ea N/A UD PRN PRN Reason: Consult Stop: 04/20/19 23:24 Pantoprazole Sodium (Protonix) 40 mg PO DAILY [facility] Stop: 04/21/19 08:59 Last Admin: 03/22/19 08:15 Dose: 40 mg Documented by: Polyethylene Glycol (Miralax Powder Packet) 17 gm PO DAILY PRN PRN Reason: Constipation Stop: 04/20/19 23:37 Sertraline HCl (Zoloft) 50 mg PO DAILY [facility] Stop: 04/21/19 08:59 Last Admin: 03/22/19 08:15 Dose: 50 mg Documented by: Zolpidem Tartrate (Ambien) 5 mg PO ONE Stop: 03/22/19 21:01 Resident Activity Tracking Resident Involvement: Resident Care Provided Care Provided: Adult Hospital Medicine
[2019-03-22] MEDS ORDERED: ZOLPIDEM TARTRATE 5 MG TAB PO ONE (21:00)
[2019-03-22] MEDS ORDERED: INSULIN ASPART 100 UNITS/ML 3 ML PEN SC SCH (21:00)
[2019-03-22] MEDS ORDERED: VANCOMYCIN HCL 1,500 MG in SODIUM CHLORIDE 0.9% 500 ML IV SCH (22:00)
[2019-03-23] MEDS: cefTRIAXone SODIUM 2,000 MG in DEXTROSE 5% 50 ML IV SCH ×2 (05:17→18:23)
[2019-03-23] MEDS: LEVOTHYROXINE SODIUM 100 MCG TABLET PO SCH (05:17)
[2019-03-23] MEDS: PANTOprazole 40 MG TAB PO SCH (08:14)
[2019-03-23] MEDS: METOPROLOL SUCC 50MG EXT REL TAB PO SCH (08:14)
[2019-03-23] MEDS: EZETIMIBE 10 MG TABLET PO SCH (08:15)
[2019-03-23] MEDS: SERTRALINE HCL 50 MG TABLET PO SCH (08:15)
[2019-03-23] MEDS: APIXABAN 5 MG TABLET PO SCH ×2 (08:15→20:39)
[2019-03-23] MEDS: ATORVASTATIN 40 MG TAB PO SCH (08:15)
[2019-03-23] MEDS: DULOXETINE HCL 60 MG CAP PO SCH (08:15)
[2019-03-23] MEDS: AMIODARONE 200 MG TAB PO SCH (08:15)
--- NOTE | 2019-03-23 08:29 | Family Medicine Progress Note ---
Date of Service March 23, 2019 Assessment & Plan (1) Gram-positive bacteremia: 73-year-old male with a PMH of hypertension, hyperlipidemia, type 2 diabetes, osteomyelitis of his right first toe, CAD status post stents, atrial fibrillation s/p implanted pacemaker who presented following incidental positive blood cultures drawn in the ED a few days ago. Drawn as workup for incidental CT findings of chest nodularity, which was done for chest wall pain after mechanical fall. #Gram-positive bacteremia -mild - afebrile, no leukocytosis, unclear source - UA is normal, does not appear to have repeat osteo in extremities (x-ray of toes, right first digit normal), pacemaker appears to be non-infected. CT chest is abnormal, but pt is not clinically having pneumonia or hypoxic. No clinical signs of endocarditis and 24May TTE without evidence of thrombus. CT scan of the chest showing nodularity is suspicious for septic emboli versus malignancy -Consult pulmonology, appreciate assistance. Repeat blood cultures,growing 3 different kinds of G+ strep species - treat empirically with Vanco/rocephin initially, but with no concern for MRSA, Vanc DCd 25May - consult ID, appreciate assistance. #Lung nodules / former heavy smoker - 30-40 years of 2 PPD, quit [address] scan of the chest showing nodularity is suspicious for septic emboli versus malignancy -Consult pulmonology, appreciate assistance. #Recent mechanical fall and subsequent right arm pain / left chest wall pain -improving x-ray of the right wrist, forearm normal #Elevated LFTs - repeat LFTs still mildly elevated with low albumin, likely indicative of chronic liver issue. - normal appearing liver texture on CT Abd/Pelvis without evidence of stones or masses. - He is on a few medications that can cause cholestasis including amiodarone, ezetimibe, and glipizide. - consider Hepatitis C and B serology, TSH DISPO: DC tele monitoring as pt is quite stable. DVT prophylaxis Eliquis 5 mg twice daily CODE STATUS DNR/DNI Other ongoing medical problems: Type 2 diabetes Sliding scale insulin, glargine Chronic kidney disease -Creatinine at baseline Hypertension/atrial fibrillation/hyperlipidemia/coronary disease Continue amiodarone, apixaban, atorvastatin, Zetia, metoprolol Depression Continue duloxetine, sertraline Hypothyroidism Continue levothyroxine 100 mcg (2) Abnormal chest CT: (3) Concern about cancer without diagnosis: (4) Contusion of left chest wall: (5) HTN (hypertension): (6) Atrial fibrillation: (7) Type 2 diabetes mellitus: (8) Hyperlipidemia: (9) CAD (coronary artery disease): (10) History of osteomyelitis: (11) Former heavy tobacco smoker: Supervising Physician Co-Signing Physician Notes Patient seen and examined with Dr. Nelson. Agree with history, exam findings, assessment and plan as outlined. In brief, Mr. Rea is a 73 year old male with history of HTN, HLD, DM2, osteomyelitis of the right great toe (2 years ago), CAD s/p PCI, afib with pacer admitted with positive blood cultures. Feeling well. afebrile. Several skin abrasions that are healing without any issues. Right great toe is non-painful. Area of the pacer implantation is nontender, no weeping or skin breakage. Abdomen is soft, nontender. 1. gram positive bacteremia. bottles are growing different organisms (alpha strep, bacillus in first set of cultures and second set is 1/2 bottles growing strep species). No MRSA. ESR and CRP elevated. continue vanc. Stop ceftriaxone. Await final cultures. No clear source for bacteremia. Pacer site is nonpainful. Toe where prior osteomyelitis was is non-painful, erythematous. There are several areas where there are old skin abrasions from a fall but these are does not appear infected. ID consulted. 2. lung nodules. CT with multifocal groundglass centrilobular nodules possible septic emobli vs malignancy. TTE without evidence of vegetation. Pulm consulted. 3. DM2. glucose levels well controlled. monitor and adjust insulin. 4. Elevated LFTs. new on admission. patient not aware of prior abnormal LFTs. CT with normal liver texture, no evidence of masses, lesions or stones. Elevation secondary to ?infection vs intrahepatic issue. Consider hepC and B serologies, TSH. On a few medications that may cause cholestasis. Dispo: Pending final cultures and finding source of bacteremia. Subjective Seen and examined at bedside today. He endorses no acute complaints -- left chest "twinges" a bit, but this is getting better since his fall. Tolerating PO. Discussed likely PICC placement in the near future, and need for pulmonology consult for the lung nodules. Review of Systems Review of Systems: All systems reviewed & are unremarkable except as noted in HPI & below Physical Exam Physical Exam: Vitals noted as above and within normal limits . GENERAL: Awake, alert to person, place, and time, nontoxic-appearing, in no distress HENT: Normocephalic, atraumatic. Mucus membranes appear moist. EYES: Normal conjunctiva. Sclera non-icteric. EOMI. NECK: Supple. Full range of motion. No JVD RESPIRATORY: Clear to auscultation. Normal work of breathing. CARDIAC: Regular rate, normal rhythm. Extremities warm and well perfused. CHEST: moderate TTP at left chest area. No TTP at ICD area and no visible erythema. Old thoracotomy scar. ABDOMEN: Soft, non-distended. Bowel sounds are normal. LOWER EXTREMITIES: Inspection of calves reveal equal size bilaterally with chronic venous changes, tinea unguinum. They are non-tender. No edema. Disc oloration c/w chronic venous stasis. NEURO: No focal gross focal motor deficits noted. Sensation in tact with somewhat decreased sensation in the feet. CN II-XII grossly in tact. SKIN: Some sun burned areas, some healing scabs on lower ext. No jaundice noted. Very dry flaking skin on feet bilaterally. PSYCH: Appropriate mood and affect. Cooperative. Exam as done by Sherly Nelson MD, [employer] Analyst. Results & Data Vital Signs (Past 12 Hours) Vital Signs Temp Pulse Pulse Resp BP BP Pulse Ox 03/23/19 07:40 36.4 C L 99 H 22 117/76 94 03/23/19 07:38 97 H 03/23/19 04:00 36.5 C 96 H 20 136/82 96 03/23/19 00:00 36.3 C L 94 H 20 126/78 96 Laboratory Results 03/23/19 03/23/19 03/23/19 Range/Units 16:45 11:44 11:44 WBC 8.39 (4.8-10.8) K/uL RBC 4.49 L (4.7-6.1) M/uL Hgb 13.8 L (14.0-18.0) g/dL Hct 40.2 L (42-52) % MCV 89.5 (80-100) fL MCH 30.7 (25-34) pg MCHC 34.3 (32-36) g/dL RDW Std Deviation 47.5 H (36.4-46.3) fL RDW Coeff of Anshul 14.4 (11.5-14.5) % Plt Count 184 (130-400) K/uL MPV 9.5 (7.4-10.4) fL Immature Gran % (Auto) 0.4 % Neut % (Auto) 60.6 % Lymph % (Auto) 22.9 % [place] % (Auto) 10.5 % Eos % (Auto) 5.1 % Baso % (Auto) 0.5 % Immature Gran # (Auto) 0.03 H (0.00-0.02) K/uL Neut # (Auto) 5.09 (1.4-6.5) K/uL Lymph # (Auto) 1.92 (1.2-3.4) K/uL [place] # (Auto) 0.88 H (0.11-0.59) K/uL Eos # (Auto) 0.43 (0-0.5) K/uL Baso # (Auto) 0.04 (0-0.2) K/uL Sodium 141 (136-145) mmol/L Potassium 4.4 (3.5-5.1) mmol/L Chloride 108 H (98-107) mmol/L Carbon Dioxide 26 (21-32) mmol/L Anion Gap 7.0 (3-11) BUN 26 H (7-18) mg/dl Creatinine 1.87 H (0.6-1.4) mg/dl Est Cr Clr Drug Dosing 44.2 ml/min Est GFR ( Amer) 40.7 Est GFR (Non-Af Amer) 35.1 BUN/Creatinine Ratio 13.9 (10-20) Glucose 122 H (70-99) mg/dl POC Glucose 195 H (70-99) Calcium 9.3 (8.5-10.1) mg/dl Total Bilirubin 0.5 (0.2-1) mg/dl AST 65 H (15-37) U/L ALT 67 (12-78) U/L Alkaline Phosphatase 158 H (45-117) U/L Total Protein 7.9 (6.4-8.2) gm/dl Albumin 2.9 L (3.4-5.0) gm/dl Globulin 5.0 H (2.5-4.0) gm/dl Albumin/Globulin Ratio 0.6 L (0.9-2) Vancomycin Trough (See Comment) mcg/ml 03/23/19 03/23/19 03/22/19 Range/Units 11:35 07:36 21:22 WBC (4.8-10.8) K/uL RBC (4.7-6.1) M/uL Hgb (14.0-18.0) g/dL Hct (42-52) % MCV (80-100) fL MCH (25-34) pg MCHC (32-36) g/dL RDW Std Deviation (36.4-46.3) fL RDW Coeff of Anshul (11.5-14.5) % Plt Count (130-400) K/uL MPV (7.4-10.4) fL Immature Gran % (Auto) % Neut % (Auto) % Lymph % (Auto) % [place] % (Auto) % Eos % (Auto) % Baso % (Auto) % Immature Gran # (Auto) (0.00-0.02) K/uL Neut # (Auto) (1.4-6.5) K/uL Lymph # (Auto) (1.2-3.4) K/uL [place] # (Auto) (0.11-0.59) K/uL Eos # (Auto) (0-0.5) K/uL Baso # (Auto) (0-0.2) K/uL Sodium (136-145) mmol/L Potassium (3.5-5.1) mmol/L Chloride (98-107) mmol/L Carbon Dioxide (21-32) mmol/L Anion Gap (3-11) BUN (7-18) mg/dl Creatinine (0.6-1.4) mg/dl Est Cr Clr Drug Dosing ml/min Est GFR ( Amer) Est GFR (Non-Af Amer) BUN/Creatinine Ratio (10-20) Glucose (70-99) mg/dl POC Glucose 128 H 102 H (70-99) Calcium (8.5-10.1) mg/dl Total Bilirubin (0.2-1) mg/dl AST (15-37) U/L ALT (12-78) U/L Alkaline Phosphatase (45-117) U/L Total Protein (6.4-8.2) gm/dl Albumin (3.4-5.0) gm/dl Globulin (2.5-4.0) gm/dl Albumin/Globulin Ratio (0.9-2) Vancomycin Trough 11.5 (See Comment) mcg/ml 03/22/19 Range/Units 21:00 WBC (4.8-10.8) K/uL RBC (4.7-6.1) M/uL Hgb (14.0-18.0) g/dL Hct (42-52) % MCV (80-100) fL MCH (25-34) pg MCHC (32-36) g/dL RDW Std Deviation (36.4-46.3) fL RDW Coeff of Anshul (11.5-14.5) % Plt Count (130-400) K/uL MPV (7.4-10.4) fL Immature Gran % (Auto) % Neut % (Auto) % Lymph % (Auto) % [place] % (Auto) % Eos % (Auto) % Baso % (Auto) % Immature Gran # (Auto) (0.00-0.02) K/uL Neut # (Auto) (1.4-6.5) K/uL Lymph # (Auto) (1.2-3.4) K/uL [place] # (Auto) (0.11-0.59) K/uL Eos # (Auto) (0-0.5) K/uL Baso # (Auto) (0-0.2) K/uL Sodium (136-145) mmol/L Potassium (3.5-5.1) mmol/L Chloride (98-107) mmol/L Carbon Dioxide (21-32) mmol/L Anion Gap (3-11) BUN (7-18) mg/dl Creatinine (0.6-1.4) mg/dl Est Cr Clr Drug Dosing ml/min Est GFR ( Amer) Est GFR (Non-Af Amer) BUN/Creatinine Ratio (10-20) Glucose (70-99) mg/dl POC Glucose 137 H (70-99) Calcium (8.5-10.1) mg/dl Total Bilirubin (0.2-1) mg/dl AST (15-37) U/L ALT (12-78) U/L Alkaline Phosphatase (45-117) U/L Total Protein (6.4-8.2) gm/dl Albumin (3.4-5.0) gm/dl Globulin (2.5-4.0) gm/dl Albumin/Globulin Ratio (0.9-2) Vancomycin Trough (See Comment) mcg/ml Medications Administered Current Inpatient Medications Acetaminophen (Tylenol) 650 mg PO Q4H PRN PRN Reason: Pain or Fever Stop: 04/20/19 23:37 Last Admin: 03/23/19 12:22 Dose: 650 mg Documented by: Hydrocodone Bitart/Acetaminophen ([place] 5/325) 1 tab PO Q4H PRN PRN Reason: Pain Stop: 04/04/19 23:37 Al Hydrox/Mg Hydrox/Simethicone (Maalox) 15 ml PO Q4H PRN PRN Reason: Dyspepsia Stop: 04/20/19 23:37 Amiodarone HCl (Cordarone) 200 mg PO DAILY [facility] Stop: 04/21/19 08:59 Last Admin: 03/23/19 08:15 Dose: 200 mg Documented by: Apixaban (Eliquis) 5 mg PO BID [facility] Stop: 04/21/19 08:59 Last Admin: 03/23/19 08:15 Dose: 5 mg Documented by: Atorvastatin Calcium (Lipitor) 40 mg PO DAILY [facility] Stop: 04/21/19 08:59 Last Admin: 03/23/19 08:15 Dose: 40 mg Documented by: Dextrose (Dextrose 50%) 25 - 50 ml IV UD PRN; Protocol PRN Reason: Hypoglycemia Protocol Stop: 04/20/19 23:44 Duloxetine HCl (Cymbalta) 60 mg PO DAILY [facility] Stop: 04/21/19 08:59 Last Admin: 03/23/19 08:15 Dose: 60 mg Documented by: Ezetimibe (Zetia) 10 mg PO DAILY [facility] Stop: 04/21/19 08:59 Last Admin: 03/23/19 08:15 Dose: 10 mg Documented by: Glucagon (Glucagen) 1 mg IM UD PRN; Protocol PRN Reason: Hypoglycemia Protocol Stop: 04/20/19 23:44 Glucose (Glucose 40%) 15 - 30 gm PO UD PRN; Protocol PRN Reason: Hypoglycemia Protocol Stop: 04/20/19 23:44 Glucose (Dex4 Glucose) 4 - 8 tabs PO UD PRN; Protocol PRN Reason: Hypoglycemia Protocol Stop: 04/20/19 23:44 Ceftriaxone Sodium 2,000 mg/ (Dextrose) 70 mls @ 100 mls/hr IV Q12H [facility]; Protocol Stop: 04/05/19 05:59 Last Infusion: 03/23/19 06:08 Dose: Infused Documented by: Insulin Aspart (Novolog Flexpen) 0 units SC ACHS [facility] Stop: 04/21/19 17:19 Last Admin: 03/23/19 17:22 Dose: 4 units Documented by: Insulin Glargine (Lantus Solostar Pen) 25 units SQ HS [facility] Stop: 04/21/19 00:29 Last Admin: 03/22/19 21:27 Dose: 25 units Documented by: Levothyroxine Sodium (Synthroid) 100 mcg PO DAILYBB [facility] Stop: 04/21/19 06:29 Last Admin: 03/23/19 05:17 Dose: 100 mcg Documented by: Magnesium Hydroxide (Milk Of Magnesia) 30 ml PO Q12H PRN PRN Reason: Constipation Stop: 04/20/19 23:37 Metoprolol Succinate (Toprol Xl) 50 mg PO DAILY RONNIE Stop: 04/21/19 08:59 Last Admin: 03/23/19 08:14 Dose: 50 mg Documented by: Miscellaneous (Carbohydrates For Hypoglycemia) 15 - 30 gm PO UD PRN PRN Reason: Hypoglycemia Treatment Stop: 04/20/19 23:44 Pantoprazole Sodium (Protonix) 40 mg PO DAILY RONNIE Stop: 04/21/19 08:59 Last Admin: 03/23/19 08:14 Dose: 40 mg Documented by: Polyethylene Glycol (Miralax Powder Packet) 17 gm PO DAILY PRN PRN Reason: Constipation Stop: 04/20/19 23:37 Sertraline HCl (Zoloft) 50 mg PO DAILY [facility] Stop: 04/21/19 08:59 Last Admin: 03/23/19 08:15 Dose: 50 mg Documented by: Resident Activity Tracking Resident Involvement: Resident Care Provided Care Provided: Adult Hospital Medicine (1) Contusion of left chest wall Encounter type: initial encounter Qualified Code(s): S20.212A - Contusion of left front wall of thorax, initial encounter
[2019-03-23] MEDS: INSULIN ASPART 100 UNITS/ML 3 ML PEN SC SCH ×4 (08:39→20:41)
[2019-03-23 12:04] LABS: Basophils # (auto) 0.04 K/uL (0-0.2); Basophils % (auto) 0.5 %; Eosinophils # (auto) 0.43 K/uL (0-0.5); Eosinophils % (auto) 5.1 %; Hematocrit (blood only) 40.2 % (42-52); Hemoglobin 13.8 g/dL (14.0-18.0); Immature Granulocytes # (auto) 0.03 K/uL (0.00-0.02); Immature Granulocytes % (auto) 0.4 %; Lymphocytes # (auto) 1.92 K/uL (1.2-3.4); Lymphocytes % (auto) 22.9 %; Mean Corpuscular Hgb Conc 34.3 g/dL (32-36); Mean Corpuscular Volume 89.5 fL (80-100); Mean Platelet Volume 9.5 fL (7.4-10.4); Monocytes # (auto) 0.88 K/uL (0.11-0.59); Monocytes % (auto) 10.5 %; Neutrophils # (auto) 5.09 K/uL (1.4-6.5); Neutrophils % (auto) 60.6 %; Platelet Count 184 K/uL (130-400); RDW Coefficient of Variation 14.4 % (11.5-14.5); RDW Standard Deviation 47.5 fL (36.4-46.3); Red Blood Count 4.49 M/uL (4.7-6.1); White Blood Count 8.39 K/uL (4.8-10.8)
[2019-03-23 12:20] LABS: Albumin Level 2.9 gm/dl (3.4-5.0); BUN Creatinine Ratio 13.9 (10-20); Calcium 9.3 mg/dl (8.5-10.1); Creatinine Clr Calc Pharmacy 44.2 ml/min; Est GFR (African American) 40.7; Est GFR (Non-African American) 35.1; Potassium 4.4 mmol/L (3.5-5.1)
[2019-03-23] MEDS: ACETAMINOPHEN 325 MG TAB PO PRN (12:22)
[2019-03-23 12:23] LABS: Albumin Globulin Ratio 0.6 (0.9-2); Bilirubin,Total 0.5 mg/dl (0.2-1); Total Protein 7.9 gm/dl (6.4-8.2)
--- NOTE | 2019-03-23 14:13 | Pharmacy Report ---
Pharmacy Abx Dose Short Note - Date of Service March 23, 2019 - Assessment & Plan Assessment 73 year old M receiving vancomycin and ceftriaxone for treatment of bacteremia (r/o endocarditis) Day # 3 of antimicrobial therapy. Blood cultures x 2 obtained (03/21) * 1 set growing gram positive cocci in chains Plan Vancomycin * Vanco trough was inadvertently ordered for today and returned at 11.5 (this is not a true trough) * Continue dose of 1500 mg IV, but will change frequency to every 22 hours * Goal trough level for bacteremia : 15 to 20 mcg/mL * Trough or random level ordered for: 03/24/19 @1730 prior to 4th dose Ceftriaxone 2 g IV q12h * IE not ruled out yet at this point. Continue for now. Consider Q24h if ruled out. Pharmacy will continue to follow and will adjust dose/frequency as necessary. Thank you.
[2019-03-23] MEDS ORDERED: VANCOMYCIN HCL 1,500 MG in SODIUM CHLORIDE 0.9% 500 ML IV SCH (20:00)
[2019-03-23] MEDS: INSULIN GLARGINE SOLOSTAR 100 UNITS/ML 3 ML PEN SQ SCH (20:40)
--- NOTE | 2019-03-23 21:02 | Consultation Report ---
DATE OF CONSULTATION: 03/23/2019 PULMONARY MEDICAL CONSULT REASON FOR CONSULTATION: Abnormal CT scan of the chest, left anterior chest pain. HISTORY OF PRESENT ILLNESS: A 73-year-old white male presented to the Emergency Room on 03/21/2019 with a left anterior chest discomfort and was referred by Dr. Costa, his primary care physician to the ER. Apparently has had abnormal lab values, had positive blood cultures as an outpatient. The patient is a poor historian and he himself is not clear as to why he is still in the hospital. He denies fevers or chills. He does have a pacemaker. He does have a history of osteomyelitis. States 2 weeks ago prior to admission, he fell and he felt that left anterior chest pain was from an injury. The CT scan did not suggest a rib fracture, but rather concern for potential source of his positive blood cultures. He is a former smoker having quit 30 years ago. 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 He lives with his , he has had a history of chronic atrial fibrillation, ischemic cardiac disease and diabetes mellitus in addition to his pacemaker implantation. He was admitted onto the [facility] hospitalist service. The patient was started on vancomycin and Rocephin intravenously and has been on amiodarone as well as apixaban, a statin and oral hypoglycemic agent along with beta blockade. He is also treated for depression and hypothyroidism. He has had ischemic cardiac disease status post stent placement and osteomyelitis of the right first toe. The osteomyelitis was treated 2 years ago with IV antibiotics and debridement. He has a total of a [id number] smoking history. He denies being dyspneic, cough, pleuritic pain or hemoptysis or rigors and chills. CT scan of the chest and abdomen was performed on admission showed no evidence of metastatic disease within the abdomen or pelvis. There was fatty atrophy of the pancreas and nonspecific bilateral nodular airspace opacities at both lung bases. X-ray of the right toe shows small cortical evulsion considered subacute at the base of the proximal phalanx and there were findings consistent with an old infectious/posttraumatic deformity distal aspect first metatarsal. CT scan of the chest on 03/20/2019 was reviewed and shows diffuse patchy predominantly ground-glass central lobular nodularity throughout all 5 lobes. I cannot appreciate central cavitation or necrosis, but certainly metastatic disease and/or septic emboli need to be considered, cardiomegaly with volume overload and congestive changes are seen. No peyton pulmonary edema. Blood cultures have grown out strep species, appears to be an alpha strep and a bacillus species, not anthracis Echocardiogram shows an LVEF of 40-45%. There are regional wall abnormalities and right ventricular systolic pressure estimated at 30-40 mmHg. No obvious vegetations, significant calcification of mitral valve noted. EKG shows sinus rhythm with first degree AV block and right bundle branch block. LABORATORY DATA: White count on admission was 6000 and has never gone above 8000, H and H 12.8 and 38.4 and monocytosis is noted. Sed rate was 78, BUN 26, creatinine 1.87, albumin depressed at 2.9, alkaline phosphatase 158, AST 65. OVERALL ASSESSMENT: A 73-year-old white male with ischemic and hypertensive cardiovascular disease, chronic renal insufficiency, diabetes mellitus and chronic obstructive pulmonary disease admitted with apparently positive blood cultures as an outpatient and current blood cultures growing out an alpha strep, and a bacillus species. I cannot be sure they do not represent a contaminant, but certainly with a sed rate of 76 and a CRP pending, it is not clear whether patient indeed has a true bacteremia and then one has to concern oneself with where the source may be. While mentioned on the CT scan of the chest by Radiology that this could represent septic emboli that is true, but certainly metastatic disease of the lung from an unknown primary would have to be considered, perhaps even a primary involving the lung. A transesophageal echocardiogram(HERBER) might be more helpful to delineate whether we are dealing with right-sided valvular endocarditis, which would be very unusual. The patient does not appear ill as one would expect from septic emboli. I think there is an incomplete database at this point in time, and probably ask for a transesophageal echocardiogram to get a better look at the valvular structures, especially the tricuspid valve and may very well need to consider a wedge biopsy or navigational bronchoscopy with biopsy for more definitive diagnosis. DAINAD
[2019-03-23] MEDS: ZOLPIDEM TARTRATE 5 MG TAB PO PRN (23:13)
[2019-03-24] MEDS: cefTRIAXone SODIUM 2,000 MG in DEXTROSE 5% 50 ML IV SCH (05:44)
[2019-03-24] MEDS: LEVOTHYROXINE SODIUM 100 MCG TABLET PO SCH (05:44)
[2019-03-24] MEDS: INSULIN ASPART 100 UNITS/ML 3 ML PEN SC SCH ×4 (07:46→21:15)
[2019-03-24] MEDS: DULOXETINE HCL 60 MG CAP PO SCH (07:47)
[2019-03-24] MEDS: ATORVASTATIN 40 MG TAB PO SCH (07:47)
[2019-03-24] MEDS: EZETIMIBE 10 MG TABLET PO SCH (07:47)
[2019-03-24] MEDS: METOPROLOL SUCC 50MG EXT REL TAB PO SCH (07:47)
[2019-03-24] MEDS: AMIODARONE 200 MG TAB PO SCH (07:47)
[2019-03-24] MEDS: PANTOprazole 40 MG TAB PO SCH (07:47)
[2019-03-24] MEDS: APIXABAN 5 MG TABLET PO SCH ×2 (07:48→21:13)
[2019-03-24] MEDS: SERTRALINE HCL 50 MG TABLET PO SCH (07:48)
[2019-03-24] MEDS: ACETAMINOPHEN 325 MG TAB PO PRN (07:51)
[2019-03-24] MEDS ORDERED: VANCOMYCIN CONSULT ACTIVE PRN (08:11)
--- NOTE | 2019-03-24 08:11 | Infectious Disease Consult ---
Date of Consultation March 24, 2019 Assessment & Plan (1) Gram positive sepsis: will change to vanco pending additional ID of alpha strep. repeat cutlures, agree with HERBER, ? infected pacer wires. ? pulm nodules could be septic emoboli and not mets. Agree he may need eventual biopsy if HERBER unrevealing. History of Present Illness Attending Physician: Tosha Negro DO pt admitted after blood cultures done in ER became +. He had a fall about 1 1/2 weeks ago, had right wrist fracture, in cast. had ct chest to r/o lung injury and was found to have pulm nodules read as likely metastatic diease, no known primary. pt came to ER due to ct report for additional workup, blood cultures done on 03/20 - 10/31 sets grew gpr, no final. 1/2 grew alpha strep. called back to ER on 03/21 and cultures 1/2 grew alpha strep again. He was placed on ctx and is tolerating well. he has been afebrile since admission, wbc 8. had echo and pulm eval, likely HERBER. has pacemaker, no known h/o cancer. currently denies cp, sob, no abd pain, no n/v/d. no f/c at home, no recent surgical procedures, dental work, minor cut on knee due to fall. overall feeling well. Allergies Allergy/AdvReac Type Severity Reaction Status Date / Time No Known Allergies Allergy Unverified 03/21/19 21:18 Home Medications Home Medications Medication Instructions Recorded Confirmed Type amiodarone 200 mg PO DAILY 03/20/19 03/21/19 History apixaban [Eliquis] 5 mg PO BID 03/20/19 03/21/19 History atorvastatin 40 mg PO DAILY 03/20/19 03/21/19 History duloxetine 60 mg PO DAILY 03/20/19 03/21/19 History ezetimibe 10 mg PO DAILY 03/20/19 03/21/19 History glipizide 5 mg PO QPM 03/20/19 03/21/19 History glipizide 10 mg PO QAM 03/20/19 03/21/19 History hydrocodone-acetaminophen 1 tab PO UD PRN 03/20/19 03/21/19 History insulin aspart U-100 [Novolog 1 unit SUBCUT UD 03/20/19 03/21/19 History Flexpen U-100 Insulin] levothyroxine 100 mcg PO DAILY 03/20/19 03/21/19 History metoprolol succinate 50 mg PO DAILY 03/20/19 03/21/19 History omeprazole 20 mg PO DAILY 03/20/19 03/21/19 History sertraline 50 mg PO DAILY 03/20/19 03/21/19 History vitamins A,C,[id number] 1 tab PO BID 03/20/19 03/21/19 History [PreserVision AREDS] insulin glargine [Basaglar KwikPen 25 unit SUBCUT HS 03/21/19 03/21/19 History U-100 Insulin] Patient History Medical History Former heavy tobacco smoker Diabetes (Chronic) Heart disease (Chronic) Pacemaker (Chronic) Atrial fibrillation (Chronic) Surgical History H/O heart artery stent (Chronic) History of open heart surgery PATIENT HAD PLEURACY? WHERE THEY REMOVED HIS HEART AND "CLEANED" FLUID FROM IT Social History Preferred Language: Gambian Communication Ability: Effective Analytical Scientist Required: No Beliefs That Will Affect Care: None marital status: Current Living Situation: Spouse Other Information That Helps Us Care for You: No Feels Safe at Home: Yes Safety Concerns: Feels Safe At This Time Smoking Status: Former smoker Tobacco Type: cigarettes Cigarettes Per Day: 40 Do You Dip or Chew Tobacco: No Smoking End Date: 1991 Second Hand Exposure: No Tobacco Cessation Education Requested by Patient: No Hx Alcohol Use: Yes Alcohol type: beer Hx Substance Use: Yes substance use type: marijuana Substance Use Type Other:: SPEED Last Used Substance: Unknown Last Used Substance Other:: IT'S BEEN AT LEAST 40 YEARS Review of Systems Review of Systems: All systems reviewed & are unremarkable except as noted in HPI & below Physical Exam Constitutional: WD/WN, vitals as above Eyes: PERRL, conjunctivae normal, anicteric sclerae ENMT: external ear and nose normal, oropharynx normal Neck: normal visual inspection Respiratory: normal respiratory effort, lungs clear to auscultation Cardiovascular: RRR, no murmur, no edema Gastrointestinal (Abdomen): normal bowel sounds, soft, nontender, no hepatosplenomegaly Musculoskeletal: no cyanosis or clubbing, extremities motor strength 5/5 Skin: no rashes, warm and dry Psychiatric: A+Ox3, euthymic affect Results & Data Vital Signs (Past 12 Hours) Vital Signs Temp Pulse Resp BP Pulse Ox 03/24/19 07:56 36.4 C L 94 H 18 131/66 95 03/24/19 04:00 36.4 C L 93 H 20 122/69 96 03/24/19 00:20 36.8 C 91 H 20 119/80 95 Laboratory Results Microbiology 03/21/19 21:07 Blood Aerobic Blood Culture - Preliminary No growth in Aerobic bottle after 48 hours. 03/21/19 21:07 Blood Anaerobic Blood Culture - Preliminary Streptococcus species 03/21/19 21:38 Blood Aerobic Blood Culture - Preliminary No growth in Aerobic bottle after 48 hours. 03/21/19 21:38 Blood Anaerobic Blood Culture - Preliminary No growth in Anaerobic bottle after 48 hours.
[2019-03-24] MEDS ORDERED: VANCOMYCIN HCL 1,500 MG in SODIUM CHLORIDE 0.9% 500 ML IV SCH (08:15)
--- NOTE | 2019-03-24 08:49 | Family Medicine Progress Note ---
Date of Service March 24, 2019 Assessment & Plan (1) Gram-positive bacteremia: 73-year-old male with a PMH of hypertension, hyperlipidemia, type 2 diabetes, osteomyelitis of his right first toe, CAD status post stents, atrial fibrillation s/p implanted pacemaker who presented following incidental positive blood cultures drawn in the ED a few days ago. Drawn as workup for incidental CT findings of chest nodularity, which was done for chest wall pain after mechanical fall. #Gram-positive bacteremia -Continues to be afebrile. No leukocytosis, unclear source - UA is normal, does not appear to have repeat osteo in extremities (x-ray of toes, right first digit normal), pacemaker appears to be non-infected. CT chest is abnormal, but pt is not clinically having pneumonia or hypoxic. No clinical signs of endocarditis and 24May TTE without evidence of thrombus. CT scan of the chest showing nodularity is suspicious for septic emboli versus malignancy -Consult pulmonology, appreciate assistance. Plan for outpatient follow-up in 1 to 2 weeks. No indication for urgent invasive intervention. Please see related notes. Repeat blood cultures,growing 3 different kinds of G+ strep species -strep bovis, alpha strep. Apparently pansensitive. - treated empirically with Vanco/rocephin initially, but with no concern for MRSA, Vanc DCd 25May - consult ID, appreciate assistance. Recommend restart vancomycin 26May. Repeat cultures. -Recommend HERBER, ordered. #Lung nodules / former heavy smoker - 30-40 years of 2 PPD, quit [address] scan of the chest showing nodularity is suspicious for septic emboli versus malignancy -Consult pulmonology, appreciate assistance. Plan for outpatient follow-up in 1 to 2 weeks. No indication for urgent invasive intervention. Please see related notes. #Recent mechanical fall and subsequent right arm pain / left chest wall pain -improving x-ray of the right wrist, forearm normal. Wrist splint in place. #Elevated LFTs - repeat LFTs still mildly elevated with low albumin, likely indicative of chronic liver issue. - normal appearing liver texture on CT Abd/Pelvis without evidence of stones or masses. - He is on a few medications that can cause cholestasis including amiodarone, ezetimibe, and glipizide. - consider Hepatitis C and B serology, TSH DISPO: DC tele monitoring as pt is quite stable. DVT prophylaxis Eliquis 5 mg twice daily CODE STATUS DNR/DNI Other ongoing medical problems: Type 2 diabetes Sliding scale insulin, glargine Chronic kidney disease -Creatinine at baseline Hypertension/atrial fibrillation/hyperlipidemia/coronary disease Continue amiodarone, apixaban, atorvastatin, Zetia, metoprolol Depression Continue duloxetine, sertraline Hypothyroidism Continue levothyroxine 100 mcg (2) Abnormal chest CT: (3) Concern about cancer without diagnosis: (4) Contusion of left chest wall: (5) HTN (hypertension): (6) Atrial fibrillation: (7) Type 2 diabetes mellitus: (8) Hyperlipidemia: (9) CAD (coronary artery disease): (10) History of osteomyelitis: (11) Former heavy tobacco smoker: Supervising Physician Co-Signing Physician Notes Patient seen and examined with Dr. Nelson. Agree with history, exam findings, assessment and plan as outlined. In brief, Mr. Rea is a 73 year old male with history of HTN, HLD, DM2, osteomyelitis of the right great toe (2 years ago), CAD s/p PCI, afib with pacer admitted with positive blood cultures. Feeling well. afebrile. Several skin abrasions that are healing without any issues. Right great toe is non-painful. Area of the pacer implantation is nontender, no weeping or skin breakage. Abdomen is soft, nontender. 1. gram positive bacteremia. bottles are growing different organisms (alpha strep, bacillus in first set of cultures and second set is 1/2 bottles growing gonzales sensitive strep bovis). No MRSA. ESR and CRP elevated. continue vanc and ceftriaxone for now. Appreciate ID assistance with abx management. Await final cultures. No clear source for bacteremia. Pacer site is nonpainful. Toe where prior osteomyelitis was is non-painful, erythematous. There are several areas where there are old skin abrasions from a fall but these are does not appear infected. HERBER ordered. Unsure when this might happen, but likely Monday. 2. lung nodules. CT with multifocal groundglass centrilobular nodules possible septic emobli vs malignancy. TTE without evidence of vegetation. With prior smoking hx, possible for malignancy (either lung primary vs met of unknown primary). 3. DM2. glucose levels well controlled. monitor and adjust insulin. 4. Elevated LFTs. new on admission. patient not aware of prior abnormal LFTs. CT with normal liver texture, no evidence of masses, lesions or stones. Elevation secondary to ?infection vs intrahepatic issue. Consider hepC and B serologies, TSH. On a few medications that may cause cholestasis. Dispo: Pending final cultures and finding source of bacteremia. Subjective Seen and examined at the bedside this morning. Patient states he continues to feel well. No acute events overnight. Tolerating p.o. Antibiotics running. Review of Systems Review of Systems: All systems reviewed & are unremarkable except as noted in HPI & below Physical Exam Physical Exam: Vitals noted as above and within normal limits. GENERAL: Awake, alert to person, place, and time, nontoxic-appearing, in no distress HENT: Normocephalic, atraumatic. Mucus membranes appear moist. EYES: Normal conjunctiva. Sclera non-icteric. EOMI. NECK: Supple. Full range of motion. No JVD RESPIRATORY: Clear to auscultation. Normal work of breathing. CARDIAC: Regular rate, normal rhythm. Extremities warm and well perfused. ABDOMEN: Soft, non-distended. Bowel sounds are normal. LOWER EXTREMITIES: Inspection of calves reveal equal size bilaterally with chronic venous changes, tinea unguinum. They are non-tender. No edema. Discoloration c/w chronic venous stasis. NEURO: No focal gross focal motor deficits noted. Sensation in tact with somewhat decreased sensation in the feet. CN II-XII grossly in tact. SKIN: Some sun burned areas, some healing scabs on lower ext. No jaundice noted. Very dry flaking skin on feet bilaterally. PSYCH: Appropriate mood and affect. Cooperative. Exam as done by Sherly Nelson MD, Financial Advocate. Results & Data Vital Signs (Past 12 Hours) Vital Signs Temp Pulse Resp BP Pulse Ox 03/24/19 07:56 36.4 C L 94 H 18 131/66 95 03/24/19 04:00 36.4 C L 93 H 20 122/69 96 03/24/19 00:20 36.8 C 91 H 20 119/80 95 Laboratory Results 03/24/19 03/24/19 03/23/19 Range/Units 17:07 07:46 20:41 POC Glucose 191 H 145 H 206 H (70-99) Medications Administered Current Inpatient Medications Acetaminophen (Tylenol) 650 mg PO Q4H PRN PRN Reason: Pain or Fever Stop: 04/20/19 23:37 Last Admin: 03/24/19 07:51 Dose: 650 mg Documented by: Hydrocodone Bitart/Acetaminophen ([place] 5/325) 1 tab PO Q4H PRN PRN Reason: Pain Stop: 04/04/19 23:37 Al Hydrox/Mg Hydrox/Simethicone (Maalox) 15 ml PO Q4H PRN PRN Reason: Dyspepsia Stop: 04/20/19 23:37 Amiodarone HCl (Cordarone) 200 mg PO DAILY RONNIE Stop: 04/21/19 08:59 Last Admin: 03/24/19 07:47 Dose: 200 mg Documented by: Apixaban (Eliquis) 5 mg PO BID [facility] Stop: 04/21/19 08:59 Last Admin: 03/24/19 07:48 Dose: 5 mg Documented by: Atorvastatin Calcium (Lipitor) 40 mg PO DAILY [facility] Stop: 04/21/19 08:59 Last Admin: 03/24/19 07:47 Dose: 40 mg Documented by: Dextrose (Dextrose 50%) 25 - 50 ml IV UD PRN; Protocol PRN Reason: Hypoglycemia Protocol Stop: 04/20/19 23:44 Duloxetine HCl (Cymbalta) 60 mg PO DAILY [facility] Stop: 04/21/19 08:59 Last Admin: 03/24/19 07:47 Dose: 60 mg Documented by: Ezetimibe (Zetia) 10 mg PO DAILY [facility] Stop: 04/21/19 08:59 Last Admin: 03/24/19 07:47 Dose: 10 mg Documented by: Glucagon (Glucagen) 1 mg IM UD PRN; Protocol PRN Reason: Hypoglycemia Protocol Stop: 04/20/19 23:44 Glucose (Glucose 40%) 15 - 30 gm PO UD PRN; Protocol PRN Reason: Hypoglycemia Protocol Stop: 04/20/19 23:44 Glucose (Dex4 Glucose) 4 - 8 tabs PO UD PRN; Protocol PRN Reason: Hypoglycemia Protocol Stop: 04/20/19 23:44 Vancomycin HCl 1,750 mg/ (Sodium Chloride) 535 mls @ 200 mls/hr IV Q24H RONNIE; Protocol Stop: 04/08/19 09:59 Insulin Aspart (Novolog Flexpen) 0 units SC ACHS RONNIE Stop: 04/21/19 17:19 Last Admin: 03/24/19 12:07 Dose: 7 units Documented by: Insulin Glargine (Lantus Solostar Pen) 25 units SQ HS [facility] Stop: 04/21/19 00:29 Last Admin: 03/23/19 20:40 Dose: 25 units Documented by: Levothyroxine Sodium (Synthroid) 100 mcg PO DAILYBB [facility] Stop: 04/21/19 06:29 Last Admin: 03/24/19 05:44 Dose: 100 mcg Documented by: Magnesium Hydroxide (Milk Of Magnesia) 30 ml PO Q12H PRN PRN Reason: Constipation Stop: 04/20/19 23:37 Metoprolol Succinate (Toprol Xl) 50 mg PO DAILY RONNIE Stop: 04/21/19 08:59 Last Admin: 03/24/19 07:47 Dose: 50 mg Documented by: Miscellaneous (Carbohydrates For Hypoglycemia) 15 - 30 gm PO UD PRN PRN Reason: Hypoglycemia Treatment Stop: 04/20/19 23:44 Miscellaneous Information (Consult) 1 ea N/A UD PRN PRN Reason: Consult Stop: 04/23/19 08:10 Pantoprazole Sodium (Protonix) 40 mg PO DAILY RONNIE Stop: 04/21/19 08:59 Last Admin: 03/24/19 07:47 Dose: 40 mg Documented by: Polyethylene Glycol (Miralax Powder Packet) 17 gm PO DAILY PRN PRN Reason: Constipation Stop: 04/20/19 23:37 Sertraline HCl (Zoloft) 50 mg PO DAILY RONNIE Stop: 04/21/19 08:59 Last Admin: 03/24/19 07:48 Dose: 50 mg Documented by: Zolpidem Tartrate (Ambien) 5 mg PO HS PRN PRN Reason: Sleep Stop: 04/22/19 19:57 Last Admin: 03/23/19 23:13 Dose: 5 mg Documented by: Resident Activity Tracking Resident Involvement: Resident Care Provided Care Provided: Adult Hospital Medicine (1) Contusion of left chest wall Encounter type: initial encounter Qualified Code(s): S20.212A - Contusion of left front wall of thorax, initial encounter
[2019-03-24] MEDS ORDERED: VANCOMYCIN HCL 2,000 MG in SODIUM CHLORIDE 0.9% 500 ML IV SCH (09:30)
--- NOTE | 2019-03-24 16:00 | Pharmacy Report ---
Pharmacy Abx Dose Short Note - Date of Service March 24, 2019 - Assessment & Plan Assessment 73 year old M receiving [] for treatment of [] Day # []/[] of antimicrobial therapy. Plan Vancomycin * Trough level of [] mcg/mL is [therapeutic][subtherapeutic][supratherapeutic] * Continue dose of [] mg IV every [] hours OR Change to [] mg IV every [] hours * Goal trough level for [] : [] to [] mcg/mL * Trough or random level ordered for: []/[]/[] Pharmacy will continue to follow and will adjust dose/frequency as necessary. Thank you.
--- NOTE | 2019-03-24 16:14 | Pharmacy Report ---
Pharmacy Abx Initial Consult - Date of Service March 24, 2019 - Pharmacy Dosing Scope Date of Consult: 03/24/19 Consultation requested by: Dr. Prado Pharmacy is consulted to initiate vancomycin IV dosing therapy, order appropriate labs and adjust drug dose/frequency. - Subjective The patient is a 73 year old M admitted on 03/21/19 22:25. - Objective Height: 5 ft 11 in Weight: 105.4 kg Vital Signs (Past 12hrs): Vital Signs Temp Pulse Resp BP Pulse Ox 03/24/19 15:02 36.6 C 93 H 18 119/78 95 03/24/19 12:00 36.4 C L 98 H 18 133/90 94 03/24/19 07:56 36.4 C L 94 H 18 131/66 95 Micro Results: 03/24/19 08:59 Aerobic Blood Culture - Pending Blood Anaerobic Blood Culture - Pending 03/24/19 08:48 Aerobic Blood Culture - Pending Blood Anaerobic Blood Culture - Pending - Assessment & Plan Assessment 73 year old M receiving vancomycin for treatment of gram-positive bacteremia (Walton-sensitive Streptococcus bovis) Patient has implanted pacemaker. TTE on 03/22 revealed no evidence of a mass or vegetation, but this does not rule out endocarditis. No other clinical signs of endocarditis noted. Chest CT on 03/20 revealed groundglass centrilobular nodules. Raises concern for metastatic disease vs. septic emboli. * Patient was previously a heavy smoker 60-80 pack year history (quit 15 years ago) Plan Vancomycin IV * Estimated PK Parameters: Vd 0.6 L/kg, Ernesto 0.04 hr-1, t1/2 19 17 hr * Loading dose: 2000 mg (19 mg/kg) * Maintenance dose: 1750 mg IV (16 mg/kg) every 24 hours * Goal trough level for bacteremia/possible endocarditis : 15 to 20 mcg/mL * Trough to be ordered once current regimen is at steady-state Isolate is highly penicillin sensitive PARMINDER < 0.12 mcg/mL) - may consider treatment with ceftriaxone 2 g IV q24h Pharmacy will continue to follow and will adjust dose/frequency as necessary. Thank you.
[2019-03-24] MEDS: INSULIN GLARGINE SOLOSTAR 100 UNITS/ML 3 ML PEN SQ SCH (21:16)
[2019-03-24] MEDS ORDERED: VANCOMYCIN TROUGH ONE (21:30)
[2019-03-24] MEDS: ZOLPIDEM TARTRATE 5 MG TAB PO PRN (22:51)
[2019-03-25] MEDS: LEVOTHYROXINE SODIUM 100 MCG TABLET PO SCH (05:57)
[2019-03-25 06:48] LABS: Est GFR (African American) 36.2; Est GFR (Non-African American) 31.2
[2019-03-25] MEDS: EZETIMIBE 10 MG TABLET PO SCH (07:43)
[2019-03-25] MEDS: METOPROLOL SUCC 50MG EXT REL TAB PO SCH (07:43)
[2019-03-25] MEDS: APIXABAN 5 MG TABLET PO SCH ×2 (07:43→20:35)
[2019-03-25] MEDS: SERTRALINE HCL 50 MG TABLET PO SCH (07:43)
[2019-03-25] MEDS: DULOXETINE HCL 60 MG CAP PO SCH (07:44)
[2019-03-25] MEDS: PANTOprazole 40 MG TAB PO SCH (07:44)
[2019-03-25] MEDS: AMIODARONE 200 MG TAB PO SCH (07:44)
[2019-03-25] MEDS: ATORVASTATIN 40 MG TAB PO SCH (07:44)
[2019-03-25 08:52] LABS: Basophils # (auto) 0.07 K/uL (0-0.2); Basophils % (auto) 0.9 %; Eosinophils # (auto) 0.39 K/uL (0-0.5); Eosinophils % (auto) 5.1 %; Hematocrit (blood only) 35.6 % (42-52); Hemoglobin 12.3 g/dL (14.0-18.0); Immature Granulocytes # (auto) 0.02 K/uL (0.00-0.02); Immature Granulocytes % (auto) 0.3 %; Lymphocytes # (auto) 1.56 K/uL (1.2-3.4); Lymphocytes % (auto) 20.3 %; Mean Corpuscular Hgb Conc 34.6 g/dL (32-36); Mean Corpuscular Volume 89.7 fL (80-100); Neutrophils # (auto) 4.66 K/uL (1.4-6.5); Neutrophils % (auto) 60.4 %; Platelet Count 167 K/uL (130-400); RDW Coefficient of Variation 14.3 % (11.5-14.5); RDW Standard Deviation 47.4 fL (36.4-46.3); Red Blood Count 3.97 M/uL (4.7-6.1)
[2019-03-25 08:53] LABS: BUN Creatinine Ratio 15.1 (10-20); Creatinine Clr Calc Pharmacy 40.6 ml/min; Est GFR (African American) 36.9; Est GFR (Non-African American) 31.8; Potassium 4.2 mmol/L (3.5-5.1)
[2019-03-25] MEDS: INSULIN ASPART 100 UNITS/ML 3 ML PEN SC SCH ×4 (09:40→20:36)
[2019-03-25] MEDS: VANCOMYCIN HCL 1,750 MG in SODIUM CHLORIDE 0.9% 500 ML IV SCH (09:45)
--- NOTE | 2019-03-25 15:45 | Family Medicine Progress Note ---
Date of Service March 25, 2019 Assessment & Plan (1) Bacteremia: 73-year-old male was admitted on 21 Mar 2019 following an incidental positive blood culture drawn the day prior. This was drawn for incidental CT findings of his chest nodularity after a mechanical fall in mid-February 2019. Gram-positive bacteremia: Denied recent fever or chills. Borderline febrile once here. 22May CT chest noted diffuse patchy ground glass nodularity throughout with concern for metastatic vs. septic emboli. Does have 60-80 pack/year smoking history (quit around 2003). 24May TTE noted no evidence of mass or vegetation, EF 40-45%, elevated RV pressure. Pulmonology and infectious disease consulted, see related notes. - 24May started on vancomycin and rocephin. 22May BCx growing bacillus and alpha strep. 23May BCx growing gonzales-sensitive Streptococcus bovis. Repeat 26May BCx pending. Presently on vancomycin. - Transesophageal echo ordered, likely obtain tomorrow (28May). - Will see what ID recommendations are for antibiotic tailoring. Mechanical fall, right arm pain and left chest wall pain: X-ray right wrist and right forearm without acute process. Monitoring. Transaminitis, fatty atrophy of pancreas (latter seen on CT a/p): Mildly increased AST, alk phos. No metastatic disease seen on CT a/p. Patient denies much alcohol use. Is on some medicines that can cause cholestasis. Ongoing medical issues: - History of right first toe osteomyelitis: Around 2016. Right toe XR on 2 [id number] noted no acute findings. - Hypertension, hyperlipidemia, CAD s/p stents: On Lipitor, Zetia. - DM2: At home is on Lantus. Continued here with insulin sliding scale. - Chronic atrial fibrillation, implanted pacemaker: On amiodarone, metoprolol. - Chronic renal insufficiency: Baseline creatinine unknown. Here stable around Cr 2.0. - Hypothyroidism: On Synthroid. - Depression: On Cymbalta, Zoloft. - History of bilateral foot tello. Code status: DNR. Diet: Heart healthy, DM 2. DVT prophy: On Eliquis. PT/OT: Deferred. Disbo: Admitted to [facility] with telemetry. (2) Right arm pain: (3) Transaminitis: (4) Pancreatic abnormality: (5) History of osteomyelitis: (6) HTN (hypertension): (7) Hyperlipidemia: (8) Diabetes: (9) Atrial fibrillation: (10) Pacemaker: (11) Chronic renal insufficiency: (12) Hypothyroidism: (13) Depression: (14) Burn of foot: Supervising Physician Co-Signing Physician Notes I personally examined the patient and verified all pinon points of history and exam, discussed case, and agree with decision making with Dr Ramsey feeling fine. no new complaints. updated on plans vitals noted nad breathing unlabored no pallor or icterus. no focal neuro deficits bacteremia - continue abx, await HERBER. will await further input from ID on transitioning to outpt abx (based on on sensitivities) and duration (based on HERBER findings) otherwise as above Subjective Found patient resting comfortably in his bedside chair earlier this morning. He says that he feels "really great" and denies any concerns in general. Specifically, he denies any difficulty breathing, chest pain, wrist pain at baseline, or any other acute concerns. Review of Systems Review of Systems: Per HPI as above. Physical Exam Physical Exam: General Appearance: Awake, alert & oriented, comfortable in general, NAD. CV: +S1S2 RRR, no murmur. Pulm: Clear to auscultation throughout. Abdomen: +BS, soft, non-tender, non-distended. Extremities: No pedal edema or calf tenderness. Moving all extremities naturally and easily with exception of right wrist in a Velcro splint. Bilateral feet have chronic discoloration (patient says related to prior foot tello). Neuro: No gross neuro deficits. Results & Data Vital Signs (Past 12 Hours) Vital Signs Temp Pulse Resp BP Pulse Ox 03/25/19 15:20 36.4 C L 92 H 18 114/71 94 03/25/19 08:00 36.8 C 94 H 20 144/81 H 97 Laboratory Results 03/25/19 03/25/19 03/25/19 Range/Units 11:39 07:34 05:58 WBC (4.8-10.8) K/uL RBC (4.7-6.1) M/uL Hgb (14.0-18.0) g/dL Hct (42-52) % MCV (80-100) fL MCH (25-34) pg MCHC (32-36) g/dL RDW Std Deviation (36.4-46.3) fL RDW Coeff of Anshul (11.5-14.5) % Plt Count (130-400) K/uL MPV (7.4-10.4) fL Immature Gran % (Auto) % Neut % (Auto) % Lymph % (Auto) % [place] % (Auto) % Eos % (Auto) % Baso % (Auto) % Immature Gran # (Auto) (0.00-0.02) K/uL Neut # (Auto) (1.4-6.5) K/uL Lymph # (Auto) (1.2-3.4) K/uL [place] # (Auto) (0.11-0.59) K/uL Eos # (Auto) (0-0.5) K/uL Baso # (Auto) (0-0.2) K/uL Sodium 142 (136-145) mmol/L Potassium 4.2 (3.5-5.1) mmol/L Chloride 108 H (98-107) mmol/L Carbon Dioxide 26 (21-32) mmol/L Anion Gap 8.0 (3-11) BUN 31 H (7-18) mg/dl Creatinine 2.03 H (0.6-1.4) mg/dl Est Cr Clr Drug Dosing 40.6 ml/min Est GFR ( Amer) 36.9 Est GFR (Non-Af Amer) 31.8 BUN/Creatinine Ratio 15.1 (10-20) Glucose 118 H (70-99) mg/dl POC Glucose 204 H 120 H (70-99) Calcium 9.0 (8.5-10.1) mg/dl 03/25/19 03/25/19 03/24/19 Range/Units 05:58 05:52 20:04 WBC 7.70 (4.8-10.8) K/uL RBC 3.97 L (4.7-6.1) M/uL Hgb 12.3 L (14.0-18.0) g/dL Hct 35.6 L (42-52) % MCV 89.7 (80-100) fL MCH 31.0 (25-34) pg MCHC 34.6 (32-36) g/dL RDW Std Deviation 47.4 H (36.4-46.3) fL RDW Coeff of Anshul 14.3 (11.5-14.5) % Plt Count 167 (130-400) K/uL MPV 10.0 (7.4-10.4) fL Immature Gran % (Auto) 0.3 % Neut % (Auto) 60.4 % Lymph % (Auto) 20.3 % [place] % (Auto) 13.0 % Eos % (Auto) 5.1 % Baso % (Auto) 0.9 % Immature Gran # (Auto) 0.02 (0.00-0.02) K/uL Neut # (Auto) 4.66 (1.4-6.5) K/uL Lymph # (Auto) 1.56 (1.2-3.4) K/uL [place]ingham # (Auto) 1.00 H (0.11-0.59) K/uL Eos # (Auto) 0.39 (0-0.5) K/uL Baso # (Auto) 0.07 (0-0.2) K/uL Sodium (136-145) mmol/L Potassium (3.5-5.1) mmol/L Chloride (98-107) mmol/L Carbon Dioxide (21-32) mmol/L Anion Gap (3-11) BUN (7-18) mg/dl Creatinine 2.06 H (0.6-1.4) mg/dl Est Cr Clr Drug Dosing 40.0 ml/min Est GFR ( Amer) 36.2 Est GFR (Non-Af Amer) 31.2 BUN/Creatinine Ratio (10-20) Glucose (70-99) mg/dl POC Glucose 211 H (70-99) Calcium (8.5-10.1) mg/dl 03/24/19 03/24/19 Range/Units 17:07 11:47 WBC (4.8-10.8) K/uL RBC (4.7-6.1) M/uL Hgb (14.0-18.0) g/dL Hct (42-52) % MCV (80-100) fL MCH (25-34) pg MCHC (32-36) g/dL RDW Std Deviation (36.4-46.3) fL RDW Coeff of Anshul (11.5-14.5) % Plt Count (130-400) K/uL MPV (7.4-10.4) fL Immature Gran % (Auto) % Neut % (Auto) % Lymph % (Auto) % [place] % (Auto) % Eos % (Auto) % Baso % (Auto) % Immature Gran # (Auto) (0.00-0.02) K/uL Neut # (Auto) (1.4-6.5) K/uL Lymph # (Auto) (1.2-3.4) K/uL [place] # (Auto) (0.11-0.59) K/uL Eos # (Auto) (0-0.5) K/uL Baso # (Auto) (0-0.2) K/uL Sodium (136-145) mmol/L Potassium (3.5-5.1) mmol/L Chloride (98-107) mmol/L Carbon Dioxide (21-32) mmol/L Anion Gap (3-11) BUN (7-18) mg/dl Creatinine (0.6-1.4) mg/dl Est Cr Clr Drug Dosing ml/min Est GFR ( Amer) Est GFR (Non-Af Amer) BUN/Creatinine Ratio (10-20) Glucose (70-99) mg/dl POC Glucose 191 H 150 H (70-99) Calcium (8.5-10.1) mg/dl Medications Administered Current Inpatient Medications Acetaminophen (Tylenol) 650 mg PO Q4H PRN PRN Reason: Pain or Fever Stop: 04/20/19 23:37 Last Admin: 03/24/19 07:51 Dose: 650 mg Documented by: Hydrocodone Bitart/Acetaminophen (Goodells 5/325) 1 tab PO Q4H PRN PRN Reason: Pain Stop: 04/04/19 23:37 Al Hydrox/Mg Hydrox/Simethicone (Maalox) 15 ml PO Q4H PRN PRN Reason: Dyspepsia Stop: 04/20/19 23:37 Amiodarone HCl (Cordarone) 200 mg PO DAILY RONNIE Stop: 04/21/19 08:59 Last Admin: 03/25/19 07:44 Dose: 200 mg Documented by: Apixaban (Eliquis) 5 mg PO BID RONNIE Stop: 04/21/19 08:59 Last Admin: 03/25/19 07:43 Dose: 5 mg Documented by: Atorvastatin Calcium (Lipitor) 40 mg PO DAILY RONNIE Stop: 04/21/19 08:59 Last Admin: 03/25/19 07:44 Dose: 40 mg Documented by: Dextrose (Dextrose 50%) 25 - 50 ml IV UD PRN; Protocol PRN Reason: Hypoglycemia Protocol Stop: 04/20/19 23:44 Duloxetine HCl (Cymbalta) 60 mg PO DAILY RONNIE Stop: 04/21/19 08:59 Last Admin: 03/25/19 07:44 Dose: 60 mg Documented by: Ezetimibe (Zetia) 10 mg PO DAILY RONNIE Stop: 04/21/19 08:59 Last Admin: 03/25/19 07:43 Dose: 10 mg Documented by: Glucagon (Glucagen) 1 mg IM UD PRN; Protocol PRN Reason: Hypoglycemia Protocol Stop: 04/20/19 23:44 Glucose (Glucose 40%) 15 - 30 gm PO UD PRN; Protocol PRN Reason: Hypoglycemia Protocol Stop: 04/20/19 23:44 Glucose (Dex4 Glucose) 4 - 8 tabs PO UD PRN; Protocol PRN Reason: Hypoglycemia Protocol Stop: 04/20/19 23:44 Vancomycin HCl 1,750 mg/ (Sodium Chloride) 535 mls @ 200 mls/hr IV Q24H RONNIE; Protocol Stop: 04/08/19 09:59 Last Infusion: 03/25/19 12:27 Dose: Infused Documented by: Insulin Aspart (Novolog Flexpen) 0 units SC ACHS RONNIE Stop: 04/21/19 17:19 Last Admin: 03/25/19 12:23 Dose: 7 units Documented by: Insulin Glargine (Lantus Solostar Pen) 25 units SQ HS RONNIE Stop: 04/21/19 00:29 Last Admin: 03/24/19 21:16 Dose: 25 units Documented by: Levothyroxine Sodium (Synthroid) 100 mcg PO DAILYBB RONNIE Stop: 04/21/19 06:29 Last Admin: 03/25/19 05:57 Dose: 100 mcg Documented by: Magnesium Hydroxide (Milk Of Magnesia) 30 ml PO Q12H PRN PRN Reason: Constipation Stop: 04/20/19 23:37 Metoprolol Succinate (Toprol Xl) 50 mg PO DAILY RONNIE Stop: 04/21/19 08:59 Last Admin: 03/25/19 07:43 Dose: 50 mg Documented by: Miscellaneous (Carbohydrates For Hypoglycemia) 15 - 30 gm PO UD PRN PRN Reason: Hypoglycemia Treatment Stop: 04/20/19 23:44 Miscellaneous Information (Consult) 1 ea N/A UD PRN PRN Reason: Consult Stop: 04/23/19 08:10 Pantoprazole Sodium (Protonix) 40 mg PO DAILY RONNIE Stop: 04/21/19 08:59 Last Admin: 03/25/19 07:44 Dose: 40 mg Documented by: Polyethylene Glycol (Miralax Powder Packet) 17 gm PO DAILY PRN PRN Reason: Constipation Stop: 04/20/19 23:37 Sertraline HCl (Zoloft) 50 mg PO DAILY RONNIE Stop: 04/21/19 08:59 Last Admin: 03/25/19 07:43 Dose: 50 mg Documented by: Zolpidem Tartrate (Ambien) 5 mg PO HS PRN PRN Reason: Sleep Stop: 04/22/19 19:57 Last Admin: 03/24/19 22:51 Dose: 5 mg Documented by: Resident Activity Tracking Resident Involvement: Resident Care Provided Care Provided: Adult Hospital Medicine (1) Chronic renal insufficiency Chronic kidney disease stage: unspecified stage Qualified Code(s): N18.9 - Chronic kidney disease, unspecified
[2019-03-25] MEDS ORDERED: VANCOMYCIN TROUGH ONE (17:30)
--- NOTE | 2019-03-25 18:13 | Discharge Summary ---
Date of Service March 27, 2019 Admission HPI Per Admitting Provider 73-year-old male with a past medical history of hypertension, hyperlipidemia, type 2 diabetes, osteomyelitis of his right first toe, CAD status post stents, atrial fibrillation s/p implanted pacemaker presents following incidental positive blood cultures drawn yesterday in the ED. Patient was in the ED yesterday following up for concerning CT scan of the chest that showed bilateral nodularity. Patient reports a mechanical fall 10 days ago with contusion to his left chestthis was the reason for the chest CT. Patient endorses a history of osteomyelitis of the right first toe approximately 2 years agohe was treated with extended course of IV antibiotics and debridement. He reports a [id number] smoking history. Today, the patient is asymptomatic. He denies the following symptoms: Shortness of breath, cough, dysuria, rash, joint pain, joint swelling, abdominal pain, nausea/vomiting/diarrhea and heart palpitations. Admission Exam Per Admitting Provider Constitutional: WD/WN, vitals as above Eyes: PERRL, conjunctivae normal, anicteric sclerae Poor dentition, no oropharynx lesions or gum swelling ENMT: external ear and nose normal, oropharynx normal Neck: trachea midline, no thyromegaly Respiratory: normal respiratory effort, lungs clear to auscultation Cardiovascular: RRR, no murmur, no edema Gastrointestinal (Abdomen): normal bowel sounds, soft, nontender, no hepatosplenomegaly Musculoskeletal: no cyanosis or clubbing, extremities motor strength 5/5 Skin: no rashes, warm and dry Sunburn on face arms and legs Neurologic: PERRL, EOMI, accommodation nl, no face palsy, no dysarthria Psychiatric: A+Ox3, euthymic affect Principal Diagnosis Gram-positive bacteremia, multiple lung nodules. Discharge Exam General Appearance: Awake, alert & oriented, comfortable in general, NAD. CV: +S1S2 RRR, no murmur. Pulm: Clear to auscultation throughout. Abdomen: +BS, soft, non-tender, non-distended. Extremities: No pedal edema or calf tenderness. Moving all extremities naturally and easily with exception of right wrist in a Velcro splint. Bilateral feet have chronic discoloration (patient says related to prior foot tello). Neuro: No gross neuro deficits. Discharge Data Allergies Allergy/AdvReac Type Severity Reaction Status Date / Time No Known Allergies Allergy Unverified 03/21/19 21:18 Consultations Pulmonology recommendations on 25 Mar 2019 (1) Gram positive sepsis: agree with IV vancomycin. Await HERBER to report on vegetations. Antibiotic course length accordingly The streptococcus us pansensitive and I would recommend consulting ID for starting a beta lactam instead of vancomycin since the strep is sensitive (2) Former heavy tobacco smoker: duoneb PRN (3) Abnormal chest CT: as mentioned above likely contusion versus septic emboli. Would repeat CT in 4-6 weeks as outpatient since patient appears asymptomatic. At his age he needs to be screened for colon cancer and prostate cancer and we would recommend that Infectious disease recommendations on 27 Mar 2019 Will change to rocephin, will need min 4 weeks abx, HERBER negative will need picc line, repeat cultures negative. will need weekly cmp,cbc, esr while on abx. pulm nodules initially read as mets but with + blood cultures there is concern for infected valve, HERBER negative however. Now with cultures growing S. bovis, highly concerned for GI malignancy, will need colonoscopy, has never screening colonoscopy in the past. Discussed with pt and family. Procedures Performed Chest CT noncontrast on 20 Mar 2019 IMPRESSION: 1. Multifocal basilar predominant groundglass centrilobular nodules. The dis tribution raises concern for metastatic disease or another hematogenous etiology, such as septic emboli. Airways infection is not favored. 2. Cardiomegaly with volume overload and congestive change. No peyton pulmonary edema at this time. CT of the abdomen and pelvis without contrast on 20 Mar 2019 IMPRESSION: 1. No evidence of metastatic disease within the abdomen or pelvis on this noncontrast study 2. No evidence of bowel obstruction. No evidence of free air 3. Normal appendix. No evidence of acute diverticulitis 4. Fatty atrophy the pancreas 5. Nonspecific bilateral nodular airspace opacities at both lung bases X-ray of the right wrist on 21 Mar 2019 IMPRESSION: No acute process. X-ray of the right great toe on 21 Mar 2019 IMPRESSION:: 1. Small cortical evulsion considered subacute base proximal phalanx. 2. Findings consistent with old infectious/old posttraumatic deformity distal aspect first metatarsal X-ray of the right forearm on 21 Mar 2019 IMPRESSION: No acute fracture or dislocation. Ordered Studies Transesophageal echocardiogram brief post-op note on 27 Mar 2019 Pre & Post Diagnosis Pre op Dx - Septicemia, R/O SBE Post op Dx - No valvular vegetations Meds - Demerol 50 mg IVP, Versed 2 mg IVP Complications - None Hospital Course (1) Bacteremia: 73-year-old male was admitted on 21 Mar 2019 following an incidental positive blood culture drawn the day prior. This was drawn for incidental CT findings of his chest nodularity after a mechanical fall in mid-February 2019. Gram-positive bacteremia: Denied recent fever or chills. Borderline febrile once here. 22May CT chest noted diffuse patchy ground glass nodularity throughout with concern for metastatic vs. septic emboli. Does have 60-80 pack/year smoking history (quit around 2003). 24May TTE noted no evidence of mass or vegetation, EF 40-45%, elevated RV pressure. Pulmonology and infectious disease consulted, see related notes. Cardiology performed HERBER (see report) which noted no valvular vegetations. - 24May started on vancomycin and rocephin. 22May BCx growing bacillus and alpha strep. 23May BCx growing gonzales-sensitive Streptococcus bovis. Repeat 26May BCx NGTD (48 hr at time of discharge). - 28May changed to rocephin with planned minimum four week course (per ID). Wrote outpatient script. 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 PICC line was placed on 29May for this purpose. - ID recommends weekly CBC, CMP, and ESR (last ordered on 29Ma) as an outpatient. - Pulmonology recommends repeat CT chest in 4 to 6 weeks as outpatient. - Would also benefit from colonoscopy due to Strep bovis association with malignancy. Has appointment with GI for [id number] at 11:30 am. Mechanical fall, right arm pain and left chest wall pain: X-ray right wrist and right forearm without acute process. Monitoring. Transaminitis, fatty atrophy of pancreas (latter seen on CT a/p): Mildly increased AST, alk phos. No metastatic disease seen on CT a/p. Patient denies much alcohol use. Is on some medicines that can cause cholestasis. Ongoing medical issues: - History of right first toe osteomyelitis: Around 2016. Right toe XR on 21Mar2019 noted no acute findings. - Hypertension, hyperlipidemia, CAD s/p stents: On Lipitor, Zetia. - DM2: At home is on Lantus. Continued here with insulin sliding scale. - Chronic atrial fibrillation, implanted pacemaker: On amiodarone, metoprolol. - Chronic renal insufficiency: Baseline creatinine unknown. Here stable around Cr 2.0. - Hypothyroidism: On Synthroid. - Depression: On Cymbalta, Zoloft. - History of bilateral foot tello. Code status: DNR. Diet: Heart healthy, DM 2. (2) Right arm pain: (3) Transaminitis: (4) Pancreatic abnormality: (5) History of osteomyelitis: (6) HTN (hypertension): (7) Hyperlipidemia: (8) Diabetes: (9) Atrial fibrillation: (10) Pacemaker: (11) Chronic renal insufficiency: (12) Hypothyroidism: (13) Depression: (14) Burn of foot: Total Time Total Time Spent Total Time Spent (In Minutes): < 30 min Discharge Plan Discharge Items Patient Disposition: Home - Self-Care Reason For Visit: BACTEREMIA,GRAM POSITIVE Discharge Diagnosis: Gram-positive bacteremia Discharge Goals: Learn about illness Activity: Per 'Additional Instructions' section Non-emergency contact: Primary Care Provider Call non-emergency contact if: you have any medication questions Follow-up/Referrals: Leida Cotto PA-C [Physician Plunger Scoop Operator] - 04/08/19 11:30 am (An appointment has been made on your behalf with [facility] office. Please call the office with any questions or concerns. ) Shakeel Costa D.O. [Primary Care Provider] - Diet: Carb Consistent or DM2 and Heart Healthy Addtl Provider Instructions: You were admitted to the hospital on March 21, 2019 after lab test called a blood culture was positive. While in the hospital we evaluated the following issues: Gram-positive bacteremia: Bacteremia, or bacteria within your bloodstream, was noted on lab testing both as an outpatient and again while in the hospital. You were seen by pulmonary and infectious disease consultants. While the exact source of this bacteria in your blood is unclear, it remains quite important that you continue antibiotics to kill it. - You were started in the hospital on an antibiotic called ceftriaxone. Infectious disease doctors recommended that you continue this for at least 4 weeks (maybe longer). A PICC line was placed into your arm to help with this. - One of the potential sources of this bacteria is from your intestines. Therefore it is recommended that she follow-up with the gastroenterology subspecialists for further discussion and likely outpatient colonoscopy. An appointment for this was made for you. -It is important that you get weekly blood tests done while on these antibiotics. Please arrange this through your primary care provider. Pulmonary nodules: As part of your evaluation in the hospital, you had a CT scan of your chest which showed evidence of multiple nodules within your lungs. The pulmonologists here recommend that you have a repeat CT scan of your chest around 4 to 6 weeks, roughly around May 02. Overall, the medications that you were on prior to this hospitalization are unchanged. The only additional medication is the ceftriaxone antibiotic as discussed above. Please follow-up with your primary care provider as soon as possible for both close post-hospital continuity of care as well as to arrange for needed recommended weekly blood tests (CBC, CMP, ESR). Please return to the nearest emergency department if you develop any chest pain, difficulty breathing, bloody cough, or with any other emergent concerns. Prescriptions: New ceftriaxone 2 gram recon soln 2 gm IV DAILY 28 Days Qty: 28 RF: 0 Continued atorvastatin 40 mg tablet 40 mg PO DAILY RF: 0 amiodarone 200 mg tablet 200 mg PO DAILY RF: 0 metoprolol succinate 100 mg tablet extended release 24 hr 50 mg PO DAILY RF: 0 glipizide 5 mg tablet extended release 24hr 10 mg PO QAM RF: 0 glipizide 5 mg tablet extended release 24hr 5 mg PO QPM RF: 0 levothyroxine 100 mcg tablet 100 mcg PO DAILY RF: 0 omeprazole 20 mg Capsule,Delayed Release(Dr/Ec) 20 mg PO DAILY RF: 0 sertraline 50 mg tablet 50 mg PO DAILY RF: 0 ezetimibe 10 mg tablet 10 mg PO DAILY RF: 0 duloxetine 60 mg capsule,delayed release(DR/EC) 60 mg PO DAILY RF: 0 PreserVision AREDS [id number] Tablet 1 tab PO BID RF: 0 Eliquis 5 mg tablet 5 mg PO BID RF: 0 hydrocodone-acetaminophen 5-325 mg tablet 1 tab PO UD PRN (Reason: Pain) RF: 0 Novolog Flexpen U-100 Insulin 100 unit/mL (3 mL) insulin pen 1 unit subcut UD RF: 0 Basaglar KwikPen U-100 Insulin 100 unit/mL (3 mL) insulin pen 25 unit subcut HS RF: 0 Stand-Alone Forms: My [facility] Discharge Orders: Discharge Order (Routine); Ordered 03/27/19 Ordered By: Jefe Ramsey Admission Data Admit Date/Time: 03/21/19 22:25 Attending Provider: Hood Lamb Admit Provider: Isac Nelson Primary Care Provider: Shakeel Costa Other Providers: José Miguel Miller ; James Aaron ; Taya Prado ; Tosha Negro ; IRB Approved Study,Shea Service: Medical Other Interventions: Discharge Summary Assessment (RN) Last Done: 03/27/19 14:34 DC Date/Time DO NOT enter until pt leaves facility: 03/27/19 17:11 Supervising Physician Co-Signing Physician Notes I personally examined the patient and verified all pinon points of history and exam, discussed case, and agree with decision making with Dr Ramsey. feeling ok. ready to go home. case management input appreciated. vitals noted nad breathing unlabored no pallor or icterus. no focal deficits. strep bovis bacteremia - no endocarditis. 2wks total therapy, IV rocephin daily as outpt, ID f/u. colonoscopy to be set up. stable for home. Resident Activity Tracking Resident Involvement: Resident Care Provided Care Provided: Adult Hospital Medicine
[2019-03-25] MEDS ORDERED: ALBUT/IPRATROP 3MG/0.5MG NEB 3 ML VIAL NEB PRN (18:49)
--- NOTE | 2019-03-25 18:49 | Pulmonology Progress Note ---
Date of Service March 25, 2019 Assessment & Plan (1) Gram positive sepsis: agree with IV vancomycin. Await HERBER to report on vegetations. Antibiotic course length accordingly The streptococcus us pansensitive and I would recommend consulting ID for starting a beta lactam instead of vancomycin since the strep is sensitive (2) Former heavy tobacco smoker: duoneb PRN (3) Abnormal chest CT: as mentioned above likely contusion versus septic emboli. Would repeat CT in 4-6 weeks as outpatient since patient ppears asymptomatic. At his age he needs to be screened for colon cancer and prostate cancer and we would recommend that Defer non pulmonary management to primary team. Pulmonary would Follow as needed at this point. Subjective Patient seen at the bedside. He was consuming dinner and comfortable. No acute distress on room air speaking loudly and non tachypneic in full sentences. Admitted because of incidental bacteremia and is on vancomycin. Patient endorses he fell down. There are ground glass infiltrates in the patient lower cabral and they are diffuse. Septic emboli and lung contusion are possibilities, less likely metastatic disease. usually mets are discrete cecil unless it is lymphangeitic spread which would cause him to be way more symptomatic Review of Systems Review of Systems: All systems reviewed & are unremarkable except as noted in HPI & below Physical Exam Constitutional: WD/WN, vitals as above Eyes: PERRL, conjunctivae normal, anicteric sclerae Neck: trachea midline, no thyromegaly Respiratory: normal respiratory effort, lungs clear to auscultation Cardiovascular: RRR, no murmur, no edema Gastrointestinal (Abdomen): normal bowel sounds, soft, nontender, no hepatosplenomegaly Musculoskeletal: no cyanosis or clubbing, extremities motor strength 5/5 Skin: no rashes, warm and dry He is really having dry skin. Lasix worked Neurologic: no gross focal motor deficits Results & Data Vital Signs (Past 12 Hours) Vital Signs Temp Pulse Resp BP Pulse Ox 03/25/19 15:20 36.4 C L 92 H 18 114/71 94 03/25/19 08:00 36.8 C 94 H 20 144/81 H 97
[2019-03-25] MEDS: INSULIN GLARGINE SOLOSTAR 100 UNITS/ML 3 ML PEN SQ SCH (20:38)
[2019-03-25] MEDS: ZOLPIDEM TARTRATE 5 MG TAB PO PRN (22:31)
[2019-03-26] MEDS: LEVOTHYROXINE SODIUM 100 MCG TABLET PO SCH (06:23)
[2019-03-26] MEDS: SERTRALINE HCL 50 MG TABLET PO SCH (07:39)
[2019-03-26] MEDS: APIXABAN 5 MG TABLET PO SCH ×2 (07:39→20:54)
[2019-03-26] MEDS: EZETIMIBE 10 MG TABLET PO SCH (07:39)
[2019-03-26] MEDS: METOPROLOL SUCC 50MG EXT REL TAB PO SCH (07:39)
[2019-03-26] MEDS: PANTOprazole 40 MG TAB PO SCH (07:39)
[2019-03-26] MEDS: DULOXETINE HCL 60 MG CAP PO SCH (07:40)
[2019-03-26] MEDS: AMIODARONE 200 MG TAB PO SCH (07:40)
[2019-03-26] MEDS: ATORVASTATIN 40 MG TAB PO SCH (07:40)
--- NOTE | 2019-03-26 08:05 | Progress Note ---
DATE: 03/24/2019 Chart reviewed and patient examined. SUBJECTIVE: The patient was sleeping comfortably. He has no symptoms. No further symptoms of left anterior chest discomfort or pleuritic discomfort. He is not coughing. No hemoptysis. He is afebrile. He denies any pain anywhere else. Dr. Prado is seeing the patient. Positive blood cultures in the ER are noted. He did have a fall a week and half ago, but in addition to a right wrist fracture, he has had no discernible chest injury that I can determine. The pulmonary nodules are mentioned and they are seen and will require further workup. Previous blood cultures on 03/20/2019 and 03/21/2019 are noted, but may very well represent contaminant. He is afebrile with a normal white count. While I did suggest a HERBER to rule out a right-sided valvular endocarditis, it is hard to me to imagine that the patient is suffering septic emboli given the absence of fever, white count and basically essentially asymptomatic. I suspect the blood cultures are contaminant, however they need to be taken seriously. I will discuss with the primary care service as well as Dr. Prado, but I suspect the patient, if all are in agreement, can be discharged with followup of the pulmonary nodules as an outpatient. I would be happy to see the patient in the clinic. We will defer to the Primary Care Service, but once again a suspicion as the blood cultures are contaminant and are not associated with the patient's initial presentation, which includes chest pain appeared more chest wall in origin. KOBY
[2019-03-26] MEDS: INSULIN ASPART 100 UNITS/ML 3 ML PEN SC SCH ×4 (08:45→20:57)
[2019-03-26] MEDS: VANCOMYCIN HCL 1,750 MG in SODIUM CHLORIDE 0.9% 500 ML IV SCH (10:02)
--- NOTE | 2019-03-26 13:59 | Infectious Disease Progress Nt ---
Date of Service March 26, 2019 Assessment & Plan (1) Gram positive sepsis: will change to rocephin, will need min 4 weeks abx, await HERBER findings. will need picc line, repeat cultures negative. will need weekly cmp,cbc, esr while on abx. pulm nodules initially read as mets but with + blood cultures there is concern for infected pacemake, IE and ? septic emboli - HERBER pending. Now with cultures growing S. bovis, highly concerned for GI malignancy, will need colonoscopy, has never screening colonoscory in the past. Discussed with pt and family. Subjective pt seen in followup, family at bedside. awaiting HERBER. tolerating abx, remains on Vanco. tolerating well. wbc 7. 5/ cultures growing S. bovis, repeat negative x 2. denies f/c, no abd pain, no n/v/d. no cp, sob, cough. feeling well. Review of Systems Review of Systems: All systems reviewed & are unremarkable except as noted in HPI & below Physical Exam Constitutional: WD/WN, vitals as above Eyes: PERRL, conjunctivae normal, anicteric sclerae ENMT: external ear and nose normal, oropharynx normal Neck: normal visual inspection Respiratory: normal respiratory effort, lungs clear to auscultation Cardiovascular: RRR, no murmur, no edema Gastrointestinal (Abdomen): normal bowel sounds, soft, nontender, no hepatosplenomegaly Musculoskeletal: no cyanosis or clubbing, extremities motor strength 5/5 Skin: no rashes, warm and dry Psychiatric: A+Ox3, euthymic affect Results & Data Vital Signs (Past 12 Hours) Vital Signs Temp Pulse Resp BP Pulse Ox 03/26/19 07:30 36.4 C L 93 H 16 124/71 97 Laboratory Results Microbiology 03/24/19 08:59 Blood Aerobic Blood Culture - Preliminary No growth in Aerobic bottle after 48 hours. 03/24/19 08:59 Blood Anaerobic Blood Culture - Preliminary No growth in Anaerobic bottle after 48 hours. 03/24/19 08:48 Blood Aerobic Blood Culture - Preliminary No growth in Aerobic bottle after 48 hours. 03/24/19 08:48 Blood Anaerobic Blood Culture - Preliminary No growth in Anaerobic bottle after 48 hours. 03/21/19 21:07 Blood Aerobic Blood Culture - Preliminary Streptococcus bovis 03/21/19 21:07 Blood Anaerobic Blood Culture - Preliminary Streptococcus bovis 03/21/19 21:38 Blood Aerobic Blood Culture - Preliminary No growth in Aerobic bottle after 48 hours. 03/21/19 21:38 Blood Anaerobic Blood Culture - Preliminary No growth in Anaerobic bottle after 48 hours.
--- NOTE | 2019-03-26 14:11 | Family Medicine Progress Note ---
Date of Service March 26, 2019 Assessment & Plan (1) Bacteremia: 73-year-old male was admitted on 21 Mar 2019 following an incidental positive blood culture drawn the day prior. This was drawn for incidental CT findings of his chest nodularity after a mechanical fall in mid-February 2019. Gram-positive bacteremia: Denied recent fever or chills. Borderline febrile once here. 22May CT chest noted diffuse patchy ground glass nodularity throughout with concern for metastatic vs. septic emboli. Does have 60-80 pack/year smoking history (quit around 2003). 24May TTE noted no evidence of mass or vegetation, EF 40-45%, elevated RV pressure. Pulmonology and infectious disease consulted, see related notes. - 24May started on vancomycin and rocephin. 22May BCx growing bacillus and alpha strep. 23May BCx growing gonzales-sensitive Streptococcus bovis. Repeat 26May BCx pending. - 28May changed to rocephin with planned minimum four week course (per ID). Ordered PICC line. - Spoke with cardiology. On track for transesophageal echo tomorrow AM (29May). - Pulmonology recommends repeat CT in 4 to 6 weeks as outpatient. - Would also benefit from colonoscopy and possible GI consult due to Strep bovis association with malignancy. Mechanical fall, right arm pain and left chest wall pain: X-ray right wrist and right forearm without acute process. Monitoring. Transaminitis, fatty atrophy of pancreas (latter seen on CT a/p): Mildly increased AST, alk phos. No metastatic disease seen on CT a/p. Patient denies much alcohol use. Is on some medicines that can cause cholestasis. Ongoing medical issues: - History of right first toe osteomyelitis: Around 2016. Right toe XR on 2 [id number] noted no acute findings. - Hypertension, hyperlipidemia, CAD s/p stents: On Lipitor, Zetia. - DM2: At home is on Lantus. Continued here with insulin sliding scale. - Chronic atrial fibrillation, implanted pacemaker: On amiodarone, metoprolol. - Chronic renal insufficiency: Baseline creatinine unknown. Here stable around Cr 2.0. - Hypothyroidism: On Synthroid. - Depression: On Cymbalta, Zoloft. - History of bilateral foot tello. Code status: DNR. Diet: Heart healthy, DM 2. NPO at midnight prior to TTE tomorrow. DVT prophy: On Eliquis. PT/OT: Deferred. Disbo: Admitted to [facility] with telemetry. (2) Right arm pain: (3) Transaminitis: (4) Pancreatic abnormality: (5) History of osteomyelitis: (6) HTN (hypertension): (7) Hyperlipidemia: (8) Diabetes: (9) Atrial fibrillation: (10) Pacemaker: (11) Chronic renal insufficiency: (12) Hypothyroidism: (13) Depression: (14) Burn of foot: Supervising Physician Co-Signing Physician Notes I personally examined the patient and verified all pinon points of history and exam, discussed case, and agree with decision making with Dr Ramsey feeling fine. no new complaints. Discussed antibiotic treatment, HERBER pending, PICC line placement, need for colonoscopy in the near future. Answered all questions to the best my ability and to patient and family satisfaction. vitals noted nad breathing unlabored no pallor or icterus. no focal neuro deficits bacteremia -switch to Rocephin, await HERBER to help determine duration. Will ask navigator to set up GI for colonoscopy in the near future. otherwise as above Subjective Found patient eating breakfast earlier this morning. He continues to be asy mptomatic, denying any difficulty breathing, chest or abdominal symptoms, or any other acute concerns. He does ask when his TTE will be. Review of Systems Review of Systems: In HPI as above. Physical Exam Physical Exam: General Appearance: Awake, alert & oriented, comfortable in general, NAD. CV: +S1S2 RRR, no murmur. Pulm: Clear to auscultation throughout. Abdomen: +BS, soft, non-tender, non-distended. Extremities: No pedal edema or calf tenderness. Moving all extremities naturally and easily with exception of right wrist in a Velcro splint. Bilateral feet have chronic discoloration (patient says related to prior foot tello). Neuro: No gross neuro deficits. Results & Data Vital Signs (Past 12 Hours) Vital Signs Temp Pulse Resp BP Pulse Ox 03/26/19 07:30 36.4 C L 93 H 16 124/71 97 Laboratory Results 03/26/19 03/26/19 03/25/19 Range/Units 11:35 07:13 20:11 POC Glucose 136 H 110 H 202 H (70-99) 03/25/19 03/25/19 Range/Units 16:49 11:39 POC Glucose 157 H 204 H (70-99) Medications Administered Current Inpatient Medications Acetaminophen (Tylenol) 650 mg PO Q4H PRN PRN Reason: Pain or Fever Stop: 04/20/19 23:37 Last Admin: 03/24/19 07:51 Dose: 650 mg Documented by: Hydrocodone Bitart/Acetaminophen ([place] 5/325) 1 tab PO Q4H PRN PRN Reason: Pain Stop: 04/04/19 23:37 Al Hydrox/Mg Hydrox/Simethicone (Maalox) 15 ml PO Q4H PRN PRN Reason: Dyspepsia Stop: 04/20/19 23:37 Albuterol (Duoneb) 3 ml NEB QIDR PRN PRN Reason: Shortness Of Breath Or Wheezing Stop: 04/24/19 19:59 Amiodarone HCl (Cordarone) 200 mg PO DAILY [facility] Stop: 04/21/19 08:59 Last Admin: 03/26/19 07:40 Dose: 200 mg Documented by: Apixaban (Eliquis) 5 mg PO BID [facility] Stop: 04/21/19 08:59 Last Admin: 03/26/19 07:39 Dose: 5 mg Documented by: Atorvastatin Calcium (Lipitor) 40 mg PO DAILY [facility] Stop: 04/21/19 08:59 Last Admin: 03/26/19 07:40 Dose: 40 mg Documented by: Dextrose (Dextrose 50%) 25 - 50 ml IV UD PRN; Protocol PRN Reason: Hypoglycemia Protocol Stop: 04/20/19 23:44 Duloxetine HCl (Cymbalta) 60 mg PO DAILY [facility] Stop: 04/21/19 08:59 Last Admin: 03/26/19 07:40 Dose: 60 mg Documented by: Ezetimibe (Zetia) 10 mg PO DAILY [facility] Stop: 04/21/19 08:59 Last Admin: 03/26/19 07:39 Dose: 10 mg Documented by: Glucagon (Glucagen) 1 mg IM UD PRN; Protocol PRN Reason: Hypoglycemia Protocol Stop: 04/20/19 23:44 Glucose (Glucose 40%) 15 - 30 gm PO UD PRN; Protocol PRN Reason: Hypoglycemia Protocol Stop: 04/20/19 23:44 Glucose (Dex4 Glucose) 4 - 8 tabs PO UD PRN; Protocol PRN Reason: Hypoglycemia Protocol Stop: 04/20/19 23:44 Ceftriaxone Sodium 2,000 mg/ (Dextrose) 70 mls @ 100 mls/hr IV DAILY [facility]; Protocol Stop: 04/09/19 13:59 Insulin Aspart (Novolog Flexpen) 0 units SC ACHS [facility] Stop: 04/21/19 17:19 Last Admin: 03/26/19 12:00 Dose: Not Given Documented by: Insulin Glargine (Lantus Solostar Pen) 25 units SQ HS [facility] Stop: 04/21/19 00:29 Last Admin: 03/25/19 20:38 Dose: 25 units Documented by: Levothyroxine Sodium (Synthroid) 100 mcg PO DAILYBB [facility] Stop: 04/21/19 06:29 Last Admin: 03/26/19 06:23 Dose: 100 mcg Documented by: Magnesium Hydroxide (Milk Of Magnesia) 30 ml PO Q12H PRN PRN Reason: Constipation Stop: 04/20/19 23:37 Metoprolol Succinate (Toprol Xl) 50 mg PO DAILY [facility] Stop: 04/21/19 08:59 Last Admin: 03/26/19 07:39 Dose: 50 mg Documented by: Miscellaneous (Carbohydrates For Hypoglycemia) 15 - 30 gm PO UD PRN PRN Reason: Hypoglycemia Treatment Stop: 04/20/19 23:44 Pantoprazole Sodium (Protonix) 40 mg PO DAILY [facility] Stop: 04/21/19 08:59 Last Admin: 03/26/19 07:39 Dose: 40 mg Documented by: Polyethylene Glycol (Miralax Powder Packet) 17 gm PO DAILY PRN PRN Reason: Constipation Stop: 04/20/19 23:37 Sertraline HCl (Zoloft) 50 mg PO DAILY [facility] Stop: 04/21/19 08:59 Last Admin: 03/26/19 07:39 Dose: 50 mg Documented by: Zolpidem Tartrate (Ambien) 5 mg PO HS PRN PRN Reason: Sleep Stop: 04/22/19 19:57 Last Admin: 03/25/19 22:31 Dose: 5 mg Documented by: Resident Activity Tracking Resident Involvement: Resident Care Provided Care Provided: Adult [facility] Medicine (1) Chronic renal insufficiency Chronic kidney disease stage: unspecified stage Qualified Code(s): N18.9 - Chronic kidney disease, unspecified
[2019-03-26] MEDS: cefTRIAXone SODIUM 2,000 MG in DEXTROSE 5% 50 ML IV SCH (14:28)
[2019-03-26] MEDS: INSULIN GLARGINE SOLOSTAR 100 UNITS/ML 3 ML PEN SQ SCH (20:55)
[2019-03-26] MEDS: ZOLPIDEM TARTRATE 5 MG TAB PO PRN (23:16)
[2019-03-27] MEDS: LEVOTHYROXINE SODIUM 100 MCG TABLET PO SCH (05:53)
[2019-03-27 06:21] LABS: Basophils # (auto) 0.04 K/uL (0-0.2); Basophils % (auto) 0.6 %; Eosinophils # (auto) 0.36 K/uL (0-0.5); Eosinophils % (auto) 5.4 %; Hematocrit (blood only) 36.2 % (42-52); Hemoglobin 12.3 g/dL (14.0-18.0); Immature Granulocytes # (auto) 0.02 K/uL (0.00-0.02); Immature Granulocytes % (auto) 0.3 %; Lymphocytes # (auto) 1.75 K/uL (1.2-3.4); Lymphocytes % (auto) 26.4 %; Mean Corpuscular Volume 89.8 fL (80-100); Mean Platelet Volume 10.1 fL (7.4-10.4); Monocytes % (auto) 12.1 %; Neutrophils # (auto) 3.65 K/uL (1.4-6.5); Neutrophils % (auto) 55.2 %; Platelet Count 160 K/uL (130-400); RDW Coefficient of Variation 14.1 % (11.5-14.5); RDW Standard Deviation 46.8 fL (36.4-46.3); Red Blood Count 4.03 M/uL (4.7-6.1); White Blood Count 6.62 K/uL (4.8-10.8)
[2019-03-27 06:53] LABS: Albumin Level 2.7 gm/dl (3.4-5.0); BUN Creatinine Ratio 14.1 (10-20); Calcium 8.9 mg/dl (8.5-10.1); Est GFR (Non-African American) 29.3; Potassium 4.1 mmol/L (3.5-5.1)
[2019-03-27 06:56] LABS: Albumin Globulin Ratio 0.6 (0.9-2); Bilirubin,Total 0.4 mg/dl (0.2-1); Globulin 4.5 gm/dl (2.5-4.0); Total Protein 7.2 gm/dl (6.4-8.2)
[2019-03-27] MEDS: METOPROLOL SUCC 50MG EXT REL TAB PO SCH (07:53)
[2019-03-27] MEDS: cefTRIAXone SODIUM 2,000 MG in DEXTROSE 5% 50 ML IV SCH (07:53)
[2019-03-27] MEDS: PANTOprazole 40 MG TAB PO SCH (07:53)
[2019-03-27] MEDS: INSULIN ASPART 100 UNITS/ML 3 ML PEN SC SCH ×2 (07:54→12:33)
[2019-03-27] MEDS: EZETIMIBE 10 MG TABLET PO SCH (07:54)
[2019-03-27] MEDS: ATORVASTATIN 40 MG TAB PO SCH (07:54)
[2019-03-27] MEDS: DULOXETINE HCL 60 MG CAP PO SCH (07:54)
[2019-03-27] MEDS: SERTRALINE HCL 50 MG TABLET PO SCH (07:55)
[2019-03-27] MEDS: AMIODARONE 200 MG TAB PO SCH (07:56)
[2019-03-27] MEDS: APIXABAN 5 MG TABLET PO SCH (07:56)
[2019-03-27] MEDS ORDERED: MEPERIDINE HCL 50 MG/ML CARP ONE (10:50)
[2019-03-27] MEDS ORDERED: MIDAZOLAM HCL 1 MG/ML 2ML VIAL ONE (10:50)
[2019-03-27] MEDS ORDERED: CANNULA ONE (10:53)
[2019-03-27] MEDS ORDERED: BENZOCAIN/TETRACA/BUTAM SPRAY 200 APPLN/20 GM SPRY EXT ONE (10:53)
--- NOTE | 2019-03-27 11:13 | Pre Anesthesia Assessment ---
Date of Service March 27, 2019 Pre Sedation Assessment Vital Signs Temp Pulse Resp BP BP Pulse Ox 03/27/19 10:48 93 H 18 156/95 H 95 03/27/19 07:29 36.3 C L 92 H 20 117/76 94 03/26/19 23:05 36.6 C 91 H 18 138/86 97 03/26/19 15:21 36.6 C 92 H 16 114/76 92 Pre-Sedation Airway Assessment Smoking Status: Former smoker Short, Thick Neck: No Thyromental Distance: > or= 3.5 Finger Breadths Oral Cavity: + Chipped Teeth Mallampati Class: I ASA: ASA3 NPO Status Date of Last Intake of Fluids: 03/27/19 Time of Last Intake of Fluids: 09:00 Date of Last Intake of Solid Food: 03/26/19 Time of Last Intake of Solid Foods: 22:00 Notes The planned sedation has been discussed with the patient. Informed Consent was obtained. I have identified the patient, determined the appropriateness of sedation and have assessed the patient immediately prior to the procedure. All medicine(s) and interventions are by my order.
--- NOTE | 2019-03-27 11:37 | Post Anesthesia Assessment ---
Date of Service March 27, 2019 Post Sedation Assessment Vital Signs Temp Pulse Pulse Resp BP BP Pulse Ox 03/27/19 11:33 91 H 16 138/76 96 03/27/19 11:30 91 H 16 138/76 96 03/27/19 11:25 90 16 133/77 95 03/27/19 11:20 90 16 135/75 96 03/27/19 11:15 90 16 141/89 H 95 03/27/19 10:48 93 H 18 156/95 H 95 03/27/19 07:29 36.3 C L 92 H 20 117/76 94 03/26/19 23:05 36.6 C 91 H 18 138/86 97 03/26/19 15:21 36.6 C 92 H 16 114/76 92 Recovery Score Activity: Moves 4 extremities Respiration: Deep Breath/Cough Circulation: +/-20% PreAnes Value Consciousness: Arouseable (by name) Oxygen Saturation: O2 needed for >90% Post Anesthesia Score: 8 Post Sedation Plan On clinical assessment, the patient appears to have tolerated the sedation without complications. Patient is recovering as anticipated. Patient will continue to be monitored by nursing and may be discharged when sedation discharge criteria are met per below protocol. Upon Completions of procedure and additional 15 minutes continue every 5 minute vital signs and the P.A.R. score; then discharge to a Phase I or Fast Track to Phase II per the following guidelines: * Discharge Patient to appropriate Phase II area if PAR is 8 or greater or return to pre- procedure baseline. The post - procedure orders will be as directed. * If PAR score is less than 8 or not return to pre-procedure baseline then justin ent will follow Phase I monitoring till PAR is reached for Phase II. The Phase I may be done in procedure room or may call to secure a Phase I area. * If naloxone or flumazenil are used for reversal, hold in Phase I for continued monitoring from when last reversal dose was given for a minimum of 60 minutes or longer pending the nurse and/or physician discretion of patient condition before discharge to Phase II. Please call the Sedation Physician to re-evaluate and complete post-note for discharge to Phase II area. Do NOT discharge from procedure sedation or Phase 1 until post- sedation e valuation note is complete by procedure /sedation MD Sedation Discharge Instructions to be given to the patient at discharge to home.
--- NOTE | 2019-03-27 11:41 | Post Operative Brief Note ---
Cardiology Brief Post Op Date of Surgery March 27, 2019 Pre & Post Diagnosis Pre op Dx - Septicemia, R/O SBE Post op Dx - No valvular vegetations Meds - Demerol 50 mg IVP, Versed 2 mg IVP Complications - None Operation Date: 03/27/19 11:00> Procedure Transesophageal echocardiogram Director Design James Brown MD [employer] Technician Corey Chaves RN Estimated Blood Loss 0 Findings See Below
--- NOTE | 2019-03-27 14:06 | Infectious Disease Progress Nt ---
Date of Service March 27, 2019 Assessment & Plan (1) Gram positive sepsis: will change to rocephin, will need min 4 weeks abx, HERBER negative will need picc line, repeat cultures negative. will need weekly cmp,cbc, esr while on abx. pulm nodules initially read as mets but with + blood cultures there is concern for infected valve, HERBER negative however. Now with cultures growing S. bovis, highly concerned for GI malignancy, will need colonoscopy, has never screening colonoscopy in the past. Discussed with pt and family. Subjective pt had HERBER today, no vegetations noted. spoke with primary, for d/c after picc placed and will plan on outpt colonoscopy. afebrile. wbc 6.6, creat 2.1, repeat blood cultures from 03/24 remain negative. Results & Data Vital Signs (Past 12 Hours) Vital Signs Temp Pulse Pulse Pulse Resp BP Pulse Ox 03/27/19 12:27 36.6 C 91 H 16 105/68 91 03/27/19 12:03 91 H 18 138/82 95 03/27/19 11:53 92 H 18 158/91 H 92 03/27/19 11:43 91 H 18 149/83 H 93 03/27/19 11:33 36.3 C L 91 H 92 H 16 138/76 96 03/27/19 11:30 91 H 16 138/76 96 03/27/19 11:25 90 16 133/77 95 03/27/19 11:20 90 16 135/75 96 03/27/19 11:15 90 16 141/89 H 95 03/27/19 10:48 93 H 18 156/95 H 95 03/27/19 07:29 36.3 C L 92 H 20 117/76 94 Laboratory Results Microbiology 03/21/19 21:07 Blood Aerobic Blood Culture - Final Streptococcus bovis 03/21/19 21:07 Blood Anaerobic Blood Culture - Final Streptococcus bovis 03/21/19 21:38 Blood Aerobic Blood Culture - Final No growth in Aerobic bottle after 5 days. 03/21/19 21:38 Blood Anaerobic Blood Culture - Final No growth in Anaerobic bottle after 5 days. 03/24/19 08:59 Blood Aerobic Blood Culture - Preliminary No growth in Aerobic bottle after 48 hours. 03/24/19 08:59 Blood Anaerobic Blood Culture - Preliminary No growth in Anaerobic bottle after 48 hours. 03/24/19 08:48 Blood Aerobic Blood Culture - Preliminary No growth in Aerobic bottle after 48 hours. 03/24/19 08:48 Blood Anaerobic Blood Culture - Preliminary No growth in Anaerobic bottle after 48 hours.
--- NOTE | 2019-04-04 21:28 | Consultation Report ---
DATE OF CONSULTATION: 03/23/2019 ADDENDUM PHYSICAL EXAMINATION: GENERAL: Well-developed, well-nourished white male in no obvious distress at rest. VITAL SIGNS: Blood pressure 128/86, pulse 88 and regular, respiratory rate 16, temperature 36.4, O2 sat 99% on room air. SKIN: Warm and dry. HEENT: Atraumatic, normocephalic, PERRLA, EOMI. Conjunctivae pink. Sclerae nonicteric. Fundi benign. Tympanic membranes within normal limits. Pharyngeal exam intact. NECK: Neck veins are not distended at 45 degrees. No evidence of adenopathy in the supra or infraclavicular areas. LUNGS: Distant P and A with hyperresonance. CARDIAC: Regular rate and rhythm. I do not appreciate a gallop. ABDOMEN: Soft, protuberant. No evidence of hepatosplenomegaly. EXTREMITIES: No significant pedal edema, clubbing, or cyanosis. NEUROLOGICAL: Cranial nerves II-XII grossly intact. No lateralizing signs.
== END 2019-03-27 17:11 | disposition home or self-care (01) | DRG 872 ==
LOC: ED 20:30 → SUATTDRO 22:25 → 2W 22:25 → 4E 03-26 21:18
PROC: CLS.TEE (2019-03-27 10:45)

== ENCOUNTER 2019-12-05 12:11 | Observation (INO) ==
[2019-12-05 12:45] LABS: Basophils # (auto) 0.02 K/uL (0-0.2); Basophils % (auto) 0.2 %; Eosinophils # (auto) 0.06 K/uL (0-0.5); Eosinophils % (auto) 0.6 %; Hematocrit (blood only) 42.3 % (42-52); Hemoglobin 14.4 g/dL (14.0-18.0); Immature Granulocytes # (auto) 0.03 K/uL (0.00-0.02); Immature Granulocytes % (auto) 0.3 %; Lymphocytes # (auto) 1.04 K/uL (1.2-3.4); Mean Corpuscular Hemoglobin 31.4 pg (25-34); Mean Corpuscular Volume 92.2 fL (80-100); Mean Platelet Volume 9.7 fL (7.4-10.4); Monocytes # (auto) 0.52 K/uL (0.11-0.59); Monocytes % (auto) 5.5 %; Neutrophils # (auto) 7.77 K/uL (1.4-6.5); Neutrophils % (auto) 82.4 %; Platelet Count 212 K/uL (130-400); RDW Standard Deviation 47.3 fL (36.4-46.3); Red Blood Count 4.59 M/uL (4.7-6.1); White Blood Count 9.44 K/uL (4.8-10.8)
[2019-12-05] MEDS ORDERED: ONDANSETRON INJ 2 MG/ML 2 ML VIAL IV STA ×2 (13:04→15:23)
[2019-12-05] MEDS ORDERED: MoRPHine SULFATE 4 MG/ML 1 ML CARP\\VIAL IV STA (13:04)
[2019-12-05 13:06] LABS: Albumin Globulin Ratio 0.7 (0.9-2); Albumin Level 3.6 gm/dl (3.4-5.0); BUN Creatinine Ratio 14.5 (10-20); Bilirubin,Total 0.5 mg/dl (0.2-1); Calcium 9.4 mg/dl (8.5-10.1); Est GFR (Non-African American) 26.7; Globulin 4.9 gm/dl (2.5-4.0); Potassium 4.5 mmol/L (3.5-5.1); Total Protein 8.5 gm/dl (6.4-8.2)
[2019-12-05 13:17] LABS: Beta-Hydroxybutyrate 2.68 mg/dl (0.2-2.81)
--- NOTE | 2019-12-05 13:45 | CT Scan Report ---
CT SCAN OF THE ABDOMEN AND PELVIS WITHOUT IV CONTRAST CLINICAL HISTORY: Right flank pain. COMPARISON STUDY: Abdominal CT dated 03/20/2019. TECHNIQUE: CT scan of the abdomen and pelvis is performed from the lung bases to the proximal femora. Images are reviewed in the axial, sagittal, and coronal planes. IV contrast was not administered for this examination as per the referring clinician. Note that the examination is suboptimal without ora l and IV contrast. The examination is also degraded by motion artifact. A dose lowering technique was utilized adhering to the principles of ALARA. CT DOSE: 1021.48 mGycm FINDINGS: Lung bases: The heart is enlarged and without pericardial effusion. Pacemaker leads are noted. There is a small hiatal hernia. Scarring/atelectasis is noted at the lung bases. No airspace consolidation or pleural effusion is seen. Postoperative change is noted at the left lung base. Liver: The unenhanced liver is normal in size, contour, and attenuation. There is no intrahepatic mal iary ductal dilatation. Gallbladder: Unremarkable. Spleen: Normal in size and attenuation. Pancreas: There is near-complete fatty atrophy of the pancreas. Numerous parenchyma calcifications wi thin the pancreatic head suggests chronic pancreatitis. Adrenal glands: Unremarkable. Kidneys: The unenhanced kidneys are atrophic and without hydronephrosis. Numerous renovascular calcif ications are noted. No renal calculi are clearly identified. A 10 mm exophytic cyst arises from the l eft lower pole. A 1.5 cm cyst is noted in the interpolar right kidney. Additional subcentimeter corti reta hypodensities also likely represent cysts but are too small for definitive characterization. Abdominal vasculature: The abdominal aorta is normal in course and caliber noting advanced atheroscle rotic calcification. Bowel: There is colonic fecal retention. No bowel obstruction is seen. There is a small duodenal dive rticulum. The appendix is well-visualized and normal. Peritoneum: There is no intraperitoneal free air or abdominal ascites. Lymphadenopathy: None. Pelvic viscera: The prostate gland is diminutive and heterogeneous. The bladder is distended but othe rwise normal in appearance. Skeletal structures: The skeletal structures are osteopenic. There is moderate lumbosacral spondylosi s. No lytic or blastic lesions are seen. IMPRESSION: 1. There are no acute infectious or inflammatory findings in the abdomen or pelvis. 2. Cardiomegaly and cardiac pacemaker. 3. Additional findings as above. ACT 112: Negative or not required by law. Electronically signed by: Jorgito Berrios M.D. 12/05/2019 1:43 PM
--- NOTE | 2019-12-05 13:47 | XRay Report ---
TWO VIEW CHEST CLINICAL HISTORY: Right-sided chest and abdominal pain. FINDINGS: PA and lateral chest radiographs are compared to study dated 08/14/2019 and correlated with chest CT dated 03/20/2019. A 2-lead cardiac pacemaker is unchanged in position. The heart is enlarged noting atherosclerotic calcification of the thoracic aorta. The pulmonary vasculature is noncongeste d. Chronic interstitial thickening is unchanged from previous and may represent chronic lung disease. Postoperative change is noted in the left lung base. There is no evidence of superimposed airspace c onsolidation or pleural effusion. There is no pneumothorax. The skeletal structures are osteopenic. T here is a healed right posterior rib fracture. IMPRESSION: 1. Cardiomegaly and chronic pacemaker. There is no radiographic evidence of congestive failure. 2. Chronic parenchymal changes as above with no airspace consolidation or pleural effusion. ACT 112: Negative or not required by law. Electronically signed by: Jorgito Berrios M.D. 12/05/2019 1:45 PM
--- NOTE | 2019-12-05 14:38 | Electrocardiogram Report ---
Test Reason : Blood Pressure : / mmHG Vent. Rate : 069 BPM Atrial Rate : 069 BPM P-R Int : 250 ms QRS Dur : 188 ms QT Int : 538 ms P-R-T Axes : -14 155 043 degrees QTc Int : 576 ms Atrial-paced rhythm with prolonged AV conduction with occasional ventricular-paced complexes Right bundle branch block Left posterior fascicular block Bifascicular block Inferior infarct , age undetermined Abnormal ECG When compared with ECG of 14-AUG-2019 13:23, No significant change Confirmed by James Brown ([id number]) on 12/05/2019 2:38:05 PM Referred By: REFERRED SELF Confirmed By:James Brown
[2019-12-05] MEDS ORDERED: SODIUM CHLORIDE 0.9% 1000ML 250 ML IV ONE (14:39)
[2019-12-05] MEDS ORDERED: NovoLIN-R INSULIN PER UNIT CHARGE IV STA (14:40)
[2019-12-05 15:33] LABS: Appearance Urine Clear (Clear); Bacteria Urine Automated Negative (Negative); Bilirubin Urine Negative (Negative); Blood Urine 2+ (Negative); Color Urine Yellow; Glucose Urine UA 3+ (Negative); Ketones Urine Negative (Negative); Leukocyte Esterase Urine Negative (Negative); Nitrite Urine Negative (Negative); Protein Urine 3+ (Negative); Specific Gravity Urine 1.024 (1.000-1.030); Urobilinogen Urine Negative (Negative)
--- NOTE | 2019-12-05 17:48 | Emergency Department Note ---
Entered by Lili Beck acting as a scribe for History of Present Illness General Chief complaint: Vomiting Stated complaint: VOMITING Time Seen by Provider: 12/05/19 12:56 Source: patient History of Present Illness Onset (ago): day(s) (yesterday) Location: abdomen Pain Consistency: + other (episode) Maximum Pain Intensity: 6 Quality: + other (vomiting) Relieved By: + none; not by medication (Doxycycline, steroid shot) Exacerbated By: + none Associated symptoms: + denies other symptoms (hematuria, difficulty urinating) and + other (back pain, abdominal pain); no chest pain, no fever/chills (fever), no rash and no shortness of breath The patient is a 74 year old male who presents to the Emergency Room with complaints of an episode of vomiting starting yesterday. The patient states that for a week he has had right sided middle back pain that radiates around to the front of his abdomen. He notes that it is a sharp pain. He states that it is intermittent, but when it comes, he cannot get comfortable. He reports that 3 days ago he went to his PCP for it who thought it was respiratory due to the p ain and wheezing. He states that they started him on Doxycycline and gave him a steroid shot. The patient states that since then, it has offered no relief and yesterday he had an episode of vomiting in the morning when the pain came. He notes that today when the pain came, he had four episodes of vomiting. He notes that that is when his decided to bring him to the ED. The patient denies hematuria, difficulty urinating, fever, anything making the pain better, anything making the pain worse, chest pain, shortness of breath, rash, and a history of kidney stones. Home Medications Home Medications Medication Instructions Recorded Confirmed Type Eliquis 5 mg PO BID 03/20/19 12/05/19 History PreserVision AREDS 1 tab PO BID 03/20/19 12/05/19 History amiodarone 200 mg PO HS 03/20/19 12/05/19 History atorvastatin 40 mg PO HS 03/20/19 12/05/19 History duloxetine 60 mg PO QAM 03/20/19 12/05/19 History ezetimibe 10 mg PO QAM 03/20/19 12/05/19 History levothyroxine 100 mcg PO QAM 03/20/19 12/05/19 History omeprazole 20 mg PO QAM 03/20/19 12/05/19 History sertraline 50 mg PO HS 03/20/19 12/05/19 History Symbicort 2 puff INHALATION HS 05/08/19 12/05/19 History nitroglycerin 0.4 mg SUBLINGUAL DIRECTED PRN 05/08/19 12/05/19 History Basaglar KwikPen U-100 Insulin 28 unit SUBCUT HS 07/24/19 12/05/19 History albuterol sulfate [ProAir HFA] 2 puff INHALATION QID PRN 07/24/19 12/05/19 History glipizide 5 mg PO HS 07/24/19 12/05/19 History glipizide 10 mg PO QAM 07/24/19 12/05/19 History metoprolol succinate 50 mg PO QAM 07/24/19 12/05/19 History insulin lispro [Humalog KwikPen 10 - 15 unit SUBCUT ACHS 08/20/19 12/05/19 History Insulin] baclofen 5 - 10 mg PO TID PRN 12/05/19 12/05/19 History doxycycline monohydrate 100 mg PO BID 12/05/19 12/05/19 History Allergies Allergy/AdvReac Type Severity Reaction Status Date / Time No Known Allergies Allergy Verified 12/05/19 14:22 Past Med/Surg History Medical History Acquired claw toe of right foot (Acute) Acquired hammer toe of right foot (Acute) Atrial fibrillation BPH (benign prostatic hyperplasia) CAD (coronary artery disease) stent x 1 () Callus (Acute) Chronic obstructive pulmonary disease CKD (chronic kidney disease) baseline creatinine 1.8-2.2 per chart review; PCP monitoring- no plan for dialysis at this time Depression Diabetes mellitus with diabetic polyneuropathy (Acute) Diabetes mellitus, type 2 IDDM Gout Hallux rigidus, left foot (Acute) Hallux rigidus, right foot (Acute) Hammertoe of left foot (Acute) Heart disease History of pleurisy hx 40+ years ago Hyperlipidemia Hypertension Ischemic cardiomyopathy Myocardial Infarction Neuropathic ulcer of toe of left foot (Acute) Osteomyelitis of great toe of right foot on abx 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 thoracentesis of left lung for pleurisy--approx 40+yrs ago, pt and are unsure History of phacoemulsification of cataract of both eyes with intraocular lens implantation History of transesophageal echocardiography (HERBER) 02/2019 Status post right foot surgery right great toe Family History Mother Family history of diabetes mellitus Father Family history of diabetes mellitus Brother Family history of diabetes mellitus Other No family history of adverse response to anesthesia Social History Preferred Language: Maldivian Communication Ability: Effective Communication Tools: Letter Board, Picture Board, Facial Expression and Physical Gestures Hearing Ability: Normal Aviation Program Manager Required: No Beliefs That Will Affect Care: None marital status: Current Living Situation: Spouse current occupational status: retired Feels Safe at Home: Yes Smoking Status: Never smoker Tobacco Type: cigarettes ; Age Started Using T obacco: 19 ; Age Quit Using Tobacco: 48 ; packs per day: 2 ; Number of Years Since Quit: 29 ; Second Hand Exposure: No ; Hx Alcohol Use: Yes Alcohol type: beer Alcohol Intake Frequency Comment: Notes significant hx of binge drinking 30+ year ago Hx Substance Use: No caffeine: Yes (1 cup a day of tea ) during the past year weight has: decreased > 10 lbs Dental Care, Regularly: No Physical Activity Frequency: 1-2 Times per Week Seatbelt Use: never Do you think of yourself as: straight/heterosexual Sexual Activity: has been sexually active within the last 12 months Review of Systems See HPI for pertinent positives & negatives. and A total of 10 systems reviewed and were otherwise negative Physical Exam Vital Signs Vital Signs - 24 hr 12/05/19 12:13 12/05/19 12:27 12/05/19 13:53 Temperature 36.5 C Temperature Source Oral Pulse Rate 65 Pulse Rate [Apical] 65 68 Pulse Rhythm Regular Pulse Rhythm [Apical] Regular Regular Pulse Strength Normal Respiratory Rate 20 19 19 Respiratory Effort / Characteristics Non-Labored Spontaneous Non-Labored Spontaneous Non-Labored Spontaneous Respiratory Depth Normal Normal Normal Respiratory Pattern Regular Regular Regular Blood Pressure 182/95 H Blood Pressure [Left Arm] 194/90 H 156/67 H Blood Pressure Mean 124 Blood Pressure Mean [Left Arm] 124 96 Blood Pressure Position Sitting Pulse Oximetry 97 97 98 Oxygen Delivery Method Room Air Room Air Room Air Sepsis Recent Fever Within 48 Hours No Sepsis Action Taken by Nursing No Action Required 12/05/19 16:24 Temperature Temperature Source Pulse Rate Pulse Rate [Apical] 60 Pulse Rhythm Pulse Rhythm [Apical] Pulse Strength Respiratory Rate 18 Respiratory Effort / Characteristics Respiratory Depth Respiratory Pattern Blood Pressure Blood Pressure [Left Arm] 152/88 H Blood Pressure Mean Blood Pressure Mean [Left Arm] 109 Blood Pressure Position Pulse Oximetry 93 Oxygen Delivery Method Room Air Sepsis Recent Fever Within 48 Hours Sepsis Action Taken by Nursing Constitutional: Vital signs reviewed. Eyes: Pupils are equal round reactive to light. Conjunctiva are noninjected. ENT: Pharynx is clear without erythema or exudate. Mucous membranes are moist. Neck supple without meningeal signs. Respiratory: Fine crackles at the right base, otherwise clear. Breath sounds are equal bilaterally. Cardiovascular: Regular rate and rhythm. No rubs or gallops. GI: Soft, nondistended and nontender. Bowel sounds are present. Musculoskeletal: No peripheral edema. No lower extremity tenderness. No CVA tenderness. Integumentary: No cyanosis. No rash to the right flank. Neurological: The patient is awake and alert. No focal deficits. Psychiatric: Normal affect. Course Course 1259: The patient was evaluated in room B4B. A complete history and physical exam was performed. 1438: I reevaluated the patient and discussed the test results with him thus far. I asked how he felt and he said he felt "yucky." When I asked him for further detail, he said he couldn't describe it. He is going to give a urine sample. 1504: I reevaluated the patient and he is still trying urinate. If he can't give a sample, we will cath him. 1524: Nursing called and the patient was still vomiting despite getting Zofran earlier. 1540: I reevaluated the patient and he is still nauseated. He states that he is not feeling well. He denies having any pain and a headache. His BSG is 310. 1630: I reevaluated the patient and he is feeling better. He is more awake and alert, but is still feeling "yucky." 1635: I discussed the patient's case with Dr. Burris- [facility] Hospitalist. He will evaluate the patient for further management. Administered Medications Discontinued Medications Sodium Chloride (Nss 1000ml) 250 mls @ 999 mls/hr IV .Q16M ONE Stop: 12/05/19 14:54 Last Infusion: 12/05/19 15:22 Dose: 0 mls/hr Documented by: [id number] Admin: 12/05/19 14:48 Dose: 999 mls/hr Documented by: [id number] Insulin Human Regular (Novolin R U-100 Per Unit) 5 units IV NOW STA Stop: 12/05/19 14:41 Last Admin: 12/05/19 14:48 Dose: 5 units Documented by: [id number] Cosigned by: [id number] Morphine Sulfate (Morphine Sulfate) 4 mg IV NOW STA Stop: 12/05/19 13:05 Last Admin: 12/05/19 13:18 Dose: 4 mg Documented by: [id number] Ondansetron HCl (Zofran) 4 mg IV NOW STA Stop: 12/05/19 13:05 Last Admin: 12/05/19 13:18 Dose: 4 mg Documented by: [id number] Ondansetron HCl (Zofran) 4 mg IV NOW STA Stop: 12/05/19 15:24 Last Admin: 12/05/19 15:31 Dose: 4 mg Documented by: [id number] Medical Decision Making Differential Diagnosis Differential diagnoses include ureteral lithiasis, hydronephrosis, UTI, pneumonia, medication reaction, gastritis, pancreatitis, zoster. Medical Records Attestation: I reviewed the patient's medical records. I did perform a limited focused review of portions of the patient's old chart on the electronic medical record. The patient has had no recent pertinent visits to this hospital. Home Medications Current Medication List: was personally reviewed by me Laboratory Data Attestation: I reviewed the patient's lab results. Result diagrams: 12/05/19 12:30 12/05/19 12:30 Lab Results 12/05/19 12/05/19 12/05/19 Range/Units 12:30 12:30 12:30 WBC 9.44 (4.8-10.8) K/uL RBC 4.59 L (4.7-6.1) M/uL Hgb 14.4 (14.0-18.0) g/dL Hct 42.3 (42-52) % MCV 92.2 (80-100) fL MCH 31.4 (25-34) pg MCHC 34.0 (32-36) g/dL RDW Std Deviation 47.3 H (36.4-46.3) fL RDW Coeff of Anshul 14.0 (11.5-14.5) % Plt Count 212 (130-400) K/uL MPV 9.7 (7.4-10.4) fL Immature Gran % (Auto) 0.3 % Neut % (Auto) 82.4 % Lymph % (Auto) 11.0 % [place] % (Auto) 5.5 % Eos % (Auto) 0.6 % Baso % (Auto) 0.2 % Immature Gran # (Auto) 0.03 H (0.00-0.02) K/uL Neut # (Auto) 7.77 H (1.4-6.5) K/uL Lymph # (Auto) 1.04 L (1.2-3.4) K/uL [place] # (Auto) 0.52 (0.11-0.59) K/uL Eos # (Auto) 0.06 (0-0.5) K/uL Baso # (Auto) 0.02 (0-0.2) K/uL Sodium 138 (136-145) mmol/L Potassium 4.5 (3.5-5.1) mmol/L Chloride 105 (98-107) mmol/L Carbon Dioxide 27 (21-32) mmol/L Anion Gap 6.0 (3-11) BUN 34 H (7-18) mg/dl Creatinine 2.33 H (0.6-1.4) mg/dl Est Cr Clr Drug Dosing 34.0 ml/min Est GFR ( Amer) 31.0 Est GFR (Non-Af Amer) 26.7 BUN/Creatinine Ratio 14.5 (10-20) Glucose 355 H* (70-99) mg/dl POC Glucose (70-99) mg/dl Calcium 9.4 (8.5-10.1) mg/dl Total Bilirubin 0.5 (0.2-1) mg/dl AST 40 H (15-37) U/L ALT 47 (12-78) U/L Alkaline Phosphatase 168 H (45-117) U/L Troponin I 0.021 (0-0.045) ng/ml Total Protein 8.5 H (6.4-8.2) gm/dl Albumin 3.6 (3.4-5.0) gm/dl Globulin 4.9 H (2.5-4.0) gm/dl Albumin/Globulin Ratio 0.7 L (0.9-2) Lipase 35 L (73-393) U/L Beta-Hydroxybutyric Acd 2.68 (0.2-2.81) mg/dl Urine Color Urine Appearance (Clear) Urine pH (4.5-7.5) Ur Specific [place] (1.000-1.030) Urine Protein (Negative) Urine Glucose (UA) (Negative) Urine Ketones (Negative) Urine Blood (Negative) Urine Nitrite (Negative) Urine Bilirubin (Negative) Urine Urobilinogen (Negative) Ur Leukocyte Esterase (Negative) Urine WBC (Auto) (0-5) /hpf Urine RBC (Auto) (0-4) /hpf U Hyaline Cast (Auto) (0-5) /lpf U Epithel Cells (Auto) (0-5) /lpf Urine Bacteria (Auto) (Negative) 12/05/19 12/05/19 Range/Units 15:18 15:39 WBC (4.8-10.8) K/uL RBC (4.7-6.1) M/uL Hgb (14.0-18.0) g/dL Hct (42-52) % MCV (80-100) fL MCH (25-34) pg MCHC (32-36) g/dL RDW Std Deviation (36.4-46.3) fL RDW Coeff of Anshul (11.5-14.5) % Plt Count (130-400) K/uL MPV (7.4-10.4) fL Immature Gran % (Auto) % Neut % (Auto) % Lymph % (Auto) % [place] % (Auto) % Eos % (Auto) % Baso % (Auto) % Immature Gran # (Auto) (0.00-0.02) K/uL Neut # (Auto) (1.4-6.5) K/uL Lymph # (Auto) (1.2-3.4) K/uL [place] # (Auto) (0.11-0.59) K/uL Eos # (Auto) (0-0.5) K/uL Baso # (Auto) (0-0.2) K/uL Sodium (136-145) mmol/L Potassium (3.5-5.1) mmol/L Chloride (98-107) mmol/L Carbon Dioxide (21-32) mmol/L Anion Gap (3-11) BUN (7-18) mg/dl Creatinine (0.6-1.4) mg/dl Est Cr Clr Drug Dosing ml/min Est GFR ( Amer) Est GFR (Non-Af Amer) BUN/Creatinine Ratio (10-20) Glucose (70-99) mg/dl POC Glucose 310 H* (70-99) mg/dl Calcium (8.5-10.1) mg/dl Total Bilirubin (0.2-1) mg/dl AST (15-37) U/L ALT (12-78) U/L Alkaline Phosphatase (45-117) U/L Troponin I (0-0.045) ng/ml Total Protein (6.4-8.2) gm/dl Albumin (3.4-5.0) gm/dl Globulin (2.5-4.0) gm/dl Albumin/Globulin Ratio (0.9-2) Lipase (73-393) U/L Beta-Hydroxybutyric Acd (0.2-2.81) mg/dl Urine Color Yellow Urine Appearance Clear (Clear) Urine pH 6.0 (4.5-7.5) Ur Specific [place] 1.024 (1.000-1.030) Urine Protein 3+ H (Negative) Urine Glucose (UA) 3+ H (Negative) Urine Ketones Negative (Negative) Urine Blood 2+ H (Negative) Urine Nitrite Negative (Negative) Urine Bilirubin Negative (Negative) Urine Urobilinogen Negative (Negative) Ur Leukocyte Esterase Negative (Negative) Urine WBC (Auto) 1-5 (0-5) /hpf Urine RBC (Auto) 10-30 H (0-4) /hpf U Hyaline Cast (Auto) 1-5 (0-5) /lpf U Epithel Cells (Auto) 10-20 H (0-5) /lpf Urine Bacteria (Auto) Negative (Negative) Imaging Data Radiologist's Impression: Radiology results as stated below per my review and the radiologist's interpretation: TWO VIEW CHEST CLINICAL HISTORY: Right-sided chest and abdominal pain. FINDINGS: PA and lateral chest radiographs are compared to study dated 08/14/2019 and correlated with chest CT dated 03/20/2019. A 2-lead cardiac pacemaker is unchanged in position. The heart is enlarged noting atherosclerotic calcification of the thoracic aorta. The pulmonary vasculature is noncongested. Chronic interstitial thickening is unchanged from previous and may represent chronic lung disease. Postoperative change is noted in the left lung base. There is no evidence of superimposed airspace consolidation or pleural effusion. There is no pneumothorax. The skeletal structures are osteopenic. There is a healed right posterior rib fracture. IMPRESSION: 1. Cardiomegaly and chronic pacemaker. There is no radiographic evidence of c ongestive failure. 2. Chronic parenchymal changes as above with no airspace consolidation or pleura l effusion. ACT 112: Negative or not required by law. Electronically signed by: Jorgito Berrios M.D. 12/05/2019 1:[address] SCAN OF THE ABDOMEN AND PELVIS WITHOUT IV CONTRAST CLINICAL HISTORY: Right flank pain. COMPARISON STUDY: Abdominal CT dated 03/20/2019. TECHNIQUE: CT scan of the abdomen and pelvis is performed from the lung bases to the proximal femora. Images are reviewed in the axial, sagittal, and coronal planes. IV contrast was not administered for this examination as per the referring clinician. Note that the examination is suboptimal without oral and IV contrast. The examination is also degraded by motion artifact. A dose lowering technique was utilized adhering to the principles of ALARA. CT DOSE: 1021.48 mGycm FINDINGS: Lung bases: The heart is enlarged and without pericardial effusion. Pacemaker leads are noted. There is a small hiatal hernia. Scarring/atelectasis is noted at the lung bases. No airspace consolidation or pleural effusion is seen. Postoperative change is noted at the left lung base. Liver: The unenhanced liver is normal in size, contour, and attenuation. There is no intrahepatic biliary ductal dilatation. Gallbladder: Unremarkable. Spleen: Normal in size and attenuation. Pancreas: There is near-complete fatty atrophy of the pancreas. Numerous parenchyma calcifications within the pancreatic head suggests chronic pancreatitis. Adrenal glands: Unremarkable. Kidneys: The unenhanced kidneys are atrophic and without hydronephrosis. Numerous renovascular calcifications are noted. No renal calculi are clearly identified. A 10 mm exophytic cyst arises from the left lower pole. A 1.5 cm cyst is noted in the interpolar right kidney. Additional subcentimeter cortical hypodensities also likely represent cysts but are too small for definitive characterization. Abdominal vasculature: The abdominal aorta is normal in course and caliber noting advanced atherosclerotic calcification. Bowel: There is colonic fecal retention. No bowel obstruction is seen. There is a small duodenal diverticulum. The appendix is well-visualized and normal. Peritoneum: There is no intraperitoneal free air or abdominal ascites. Lymphadenopathy: None. Pelvic viscera: The prostate gland is diminutive and heterogeneous. The bladder is distended but otherwise normal in appearance. Skeletal structures: The skeletal structures are osteopenic. There is moderate lumbosacral spondylosis. No lytic or blastic lesions are seen. IMPRESSION: 1. There are no acute infectious or inflammatory findings in the abdomen or pelvis. 2. Cardiomegaly and cardiac pacemaker. 3. Additional findings as above. ACT 112: Negative or not required by law. Electronically signed by: Jorgito Berrios M.D. 12/05/2019 1:43 PM ECG Data Attestation: I personally reviewed and interpreted this ECG as follows: Indication: + vomiting and + other (flank pain) Rate (beats per minute): 69 Rhythm: + other (atrially paced) ECG Findings: + Q waves (Inferior) and + Other (bifasicular block); no PVCs Blood Pressure Blood Pressure Findings: Elevated blood pressure Blood Pressure Disposition: Referred to patients primary care provider [facility] Narrative I did evaluate the patient as noted above. The patient is presenting with right-sided flank pain intermittently for a week. He also complains of vomiting which started yesterday. He has no other complaints other than feeling very weak. IV access was established. The patient was placed on a continuous monitoring engineer. I did order and personally review the patient's 12-lead EKG as described above. He has a paced rhythm. There is no evidence of acute ischemia. I did order and personally reviewed the images of the patient's chest x-ray as described above. Chest x-ray is negative for pneumonia. I did order a urine analysis. He does not have a urinary tract infection I did order and review the patient's blood work as noted in the electronic medical record. CBC is unremarkable without leukocytosis or anemia. Electrolytes are unremarkable. He does have chronic kidney disease and so his creatinine is elevated. He also has hyperglycemia. I did treat him with Zofran, insulin and normal saline IV. I did order a CT of the abdomen and pelvis. I did review the images myself as well as the radiology report as described above. There is no evidence of acute process within the abdomen pelvis. I did reevaluate the patient. He still states that he feels unwell. His states he is not himself. He did have another episode of vomiting in the ED. He was given Zofran IV again. I did reassess him. He seems little more lethargic than he was previously and complained of feeling " yucky." He also complained of persistent nausea and inability to drink liquids. I therefore felt he should be hospitalized for further care and evaluation. I did discuss the case with the hospitalist and case picker. I did reassess the patient again later and he stated that he felt better. He was no longer lethargic but he still had fatigue and nausea. Impression & Plan Intractable vomiting, Right flank pain, CKD (chronic kidney disease) Discharge Plan Visit Data Chief Complaint: Vomiting Stated Complaint: VOMITING ED Provider: Hong King Discharge Problem: Intractable vomiting, Right flank pain, CKD (chronic kidney disease) Patient Disposition: Being Evaluated by Hospitalist Forms Stand Alone Forms: [facility] Prescriptions Prescriptions: No Action nitroglycerin 0.4 mg Tablet, Sublingual 0.4 mg sublingual DIRECTED PRN (Reason: Angina) RF: 0 Symbicort 80-4.5 mcg/actuation Hfa Aerosol Inhaler 2 puff INHALATION HS RF: 0 baclofen 10 mg tablet 5 - 10 mg PO TID PRN (Reason: Muscle Spasm) RF: 0 doxycycline monohydrate 100 mg capsule 100 mg PO BID RF: 0 atorvastatin 40 mg tablet 40 mg PO HS RF: 0 amiodarone 200 mg tablet 200 mg PO HS RF: 0 levothyroxine 100 mcg tablet 100 mcg PO QAM RF: 0 omeprazole 20 mg Capsule,Delayed Release(Dr/Ec) 20 mg PO QAM RF: 0 sertraline 50 mg tablet 50 mg PO HS RF: 0 ezetimibe 10 mg tablet 10 mg PO QAM RF: 0 duloxetine 60 mg capsule,delayed release(DR/EC) 60 mg PO QAM RF: 0 PreserVision AREDS [id number] Tablet 1 tab PO BID RF: 0 Eliquis 5 mg tablet 5 mg PO BID RF: 0 metoprolol succinate 100 mg tablet extended release 24 hr 50 mg PO QAM RF: 0 glipizide 5 mg tablet extended release 24hr 5 mg PO HS RF: 0 glipizide 5 mg tablet extended release 24hr 10 mg PO QAM RF: 0 Basaglar KwikPen U-100 Insulin 100 unit/mL (3 mL) insulin pen 28 unit subcut HS RF: 0 albuterol sulfate [ProAir HFA] 90 mcg/actuation Hfa Aerosol Inhaler 2 puff INHALATION QID PRN (Reason: Shortness Of Breath Or Wheezing) RF: 0 insulin lispro [Humalog KwikPen Insulin] 100 unit/mL Insulin Pen 10 - 15 unit SUBCUT ACHS RF: 0 Referrals Referrals: Shakeel Costa D.O. [Primary Care Provider] - Discharge Problem: Intractable vomiting Qualifiers: Vomiting type: unspecified Nausea presence: with nausea Qualified Code(s): R11.2 - Nausea with vomiting, unspecified CKD (chronic kidney disease) Qualifiers: Chronic kidney disease stage: unspecified stage Qualified Code(s): N18.9 - Chronic kidney disease, unspecified The scribe's documentation has been prepared under my direction and personally reviewed by me in its entirety. I confirm that the note above accurately reflects all work, treatment, procedures, and medical decision making performed by me.
--- NOTE | 2019-12-05 18:33 | History & Physical Report ---
Date of Service December 05, 2019 Assessment & Plan (1) Intractable vomiting: Unclear etiology Admit tele CT abd/pelvis with chronic pancreatitis and multiple cysts and small indeterminate nodules on kidneys. No obstruction No sick contacts Given patient's history of osteomyelitis and bacteremia and frequent health care exposures will start vanc and zosyn for tonight Blood cultures, lactic acid pending Will Xray right foot for scabbed wound - history of osteo in second toe on that foot. CXR with chronic changes - will order CT chest Gentle fluids - NSS @ 100 mls/hr Zofran (2) Encephalopathy: Toxic vs metabolic Patient with new script for baclofen taken for the last three days - will hold Will order ABG Continuous pulse ox (3) Right flank pain: No complaints at this point - could add lidocaine patch if reimerges (4) CKD (chronic kidney disease): Creat 2.3 - at baseline (5) HTN (hypertension): Continue home metoprolol (6) Atrial fibrillation: With pacing - continue amiodarone and Eliquis (7) Type 2 diabetes mellitus: Hyperglycemic in the 300s Last A1c in in July was 9.4 - will repeat am Hold glipizide consult glycemic pharmacist (8) Hyperlipidemia: Continue atorvastatin (9) CAD (coronary artery disease): Continue atorvastatin, metoprolol - not on ASA (10) History of osteomyelitis: As above (11) Transaminitis: Marginal - AST is 40 Alk phos also elevated at 168 CMP am (12) Pancreatic abnormality: chronic pancreatitis on CT Lipase wnl No epigastric or abdominal pain (13) Hypothyroidism: continue home levothyroxine TSH pending (14) Depression: Continue duloxetine and sertraline - will probably want to cut one of these meds, will discuss with patient and in the morning (15) DVT prophylaxis: Eliquis History of Present Illness Primary Care Provider: Shakeel Costa Mr. Rea presents today for intractable vomiting. He is lethargic and his provides most of the history. He went to see his pcp on Monday for wheezing and right rib pain. He was given baclofen, doxycycline, and prednisone and sent for a CXR. He felt too ill to get the Xray. Yesterday he began vomiting. No blood in his emesis. No changes in bowels. No chest pain. No sick contacts.He has a history of right second toe amputation for osteomyelitis but finished his antibiotic course in August. 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 Family: heart disease Allergies Allergy/AdvReac Type Severity Reaction Status Date / Time No Known Allergies Allergy Verified 12/05/19 14:22 Home Medications Home Medications Medication Instructions Recorded Confirmed Type Eliquis 5 mg PO BID 03/20/19 12/05/19 History PreserVision AREDS 1 tab PO BID 03/20/19 12/05/19 History amiodarone 200 mg PO 03/20/19 12/05/19 History atorvastatin 40 mg PO HS 03/20/19 12/05/19 History duloxetine 60 mg PO QAM 03/20/19 12/05/19 History ezetimibe 10 mg PO QAM 03/20/19 12/05/19 History levothyroxine 100 mcg PO QAM 03/20/19 12/05/19 History omeprazole 20 mg PO QAM 03/20/19 12/05/19 History sertraline 50 mg PO HS 03/20/19 12/05/19 History Symbicort 2 puff INHALATION 05/08/19 12/05/19 History nitroglycerin 0.4 mg SUBLINGUAL DIRECTED PRN 05/08/19 12/05/19 History Basaglar KwikPen U-100 Insulin 28 unit SUBCUT HS 07/24/19 12/05/19 History albuterol sulfate [ProAir HFA] 2 puff INHALATION QID PRN 07/24/19 12/05/19 History glipizide 5 mg PO HS 07/24/19 12/05/19 History glipizide 10 mg PO QAM 07/24/19 12/05/19 History metoprolol succinate 50 mg PO QAM 07/24/19 12/05/19 History insulin lispro [Humalog KwikPen 10 - 15 unit SUBCUT ACHS 08/20/19 12/05/19 History Insulin] baclofen 5 - 10 mg PO TID PRN 12/05/19 12/05/19 History doxycycline monohydrate 100 mg PO BID 12/05/19 12/05/19 History Past Med/Surg History Family History Mother Family history of diabetes mellitus Father Family history of diabetes mellitus Brother Family history of diabetes mellitus Other No family history of adverse response to anesthesia Social History Preferred Language: Monegasque Communication Ability: Effective Communication Tools: Letter Board, Picture Board, Facial Expression and Physical Gestures Hearing Ability: Normal Adviser Sales Required: No Beliefs That Will Affect Care: None marital status: Current Living Situation: Spouse current occupational status: retired Other Information That Helps Us Care for You: No Feels Safe at Home: Yes Safety Concerns: Feels Safe At This Time Smoking Status: Former smoker Tobacco Type: cigarettes ; Age Started Using Tobacco: 19 ; Age Quit Using Tobacco: 48 ; packs per day: 2 ; Do You Dip or Chew Tobacco: No ; Number of Years Since Quit: 29 ; Second Hand Exposure: No ; Tobacco Cessation Education Requested by Patient: No Hx Alcohol Use: Yes Alcohol type: other Alcohol Intake Frequency Comment: Notes significant hx of binge drinking 30+ year ago Hx Substance Use: No caffeine: Yes (1 cup a day of tea ) during the past year weight has: decreased > 10 lbs Dental Care, Regularly: No Physical Activity Frequency: 1-2 Times per Week Seatbelt Use: never Do you think of yourself as: straight/heterosexual Sexual Activity: has been sexually active within the last 12 months Review of Systems Review of Systems: All systems reviewed & are unremarkable except as noted in HPI & below Physical Exam Physical Exam: General: no distress Eyes: normal inspection, PERLL Respiratory: chest non tender,faint crackles left base otherwise lungs clear, no respiratory distress, no accessory muscle use Cardiac: regular rate and rhythm, no rub or gallop, no murmur, no edema, no jvd GI/: active bowel sounds, no abd pain or tenderness, soft, non distended Extremities: normal range of motion, normal strength, non tender Neuro:oriented x to person and place, moves all extremities, EOEM equal, tongue protrudes midline, no facial droop, no drift, hand grasp equal Psych: lethargic, normal mood and affect Skin: normal color, dry, lower extremities with flakey skin, pvd changes, right lateral foot scab, Results & Data Vital Signs (Past 12 Hours) Vital Signs Temp Pulse Pulse Resp BP BP Pulse Ox 12/05/19 17:48 60 18 183/82 H 94 12/05/19 16:24 60 18 152/88 H 93 12/05/19 13:53 68 19 156/67 H 98 12/05/19 12:27 65 19 194/90 H 97 12/05/19 12:13 36.5 C 65 20 182/95 H 97 Code Status & VTE Plan VTE Prophylaxis Plan VTE Prophylaxis will be ordered: Yes Supervising Physician Co-Signing Physician Notes I supervised Leyda Bennett NP on this patient's care. I examined the patient today independently of her. I discussed the plan of care with her with the plan being as written in her note except for any following changes/exceptions: None. Clearly lethargic on exam, but otherwise nothing focal. Has prior hx of bacteremia and osteomyelitis. Will treat with empiric abx until we have more information on cultures. PG Care Time/CCT Total # of Minutes Spent Total Time Spent with Patient: Total time spent is greater than 50% in coordination of care (as documented) at patient's floor/unit and/or counseling patient: Coding Level of Care Code 88087 Initial Inpt Care Lvl 3 Diagnoses Intractable vomiting R11.2 Nausea presence: with nausea Vomiting type: unspecified Encephalopathy G93.40 Right flank pain R10.9 CKD (chronic kidney disease) N18.9 Chronic kidney disease stage: unspecified stage HTN (hypertension) I10 Atrial fibrillation I48.91 Type 2 diabetes mellitus E11.621; L97.509; Z79.4 Diabetes mellitus complication detail: with foot ulcer Diabetes mellitus complication status: with skin complications Diabetes mellitus half-way insulin use: with half-way use Hyperlipidemia E78.5 CAD (coronary artery disease) I25.10 History of osteomyelitis Z87.39 Transaminitis R74.0 Pancreatic abnormality Q45.3 Hypothyroidism E03.9 Depression F32.9 DVT prophylaxis Z29.9 (1) Type 2 diabetes mellitus Diabetes mellitus complication detail: with foot ulcer Diabetes mellitus complication status: with skin complications Diabetes mellitus half-way insulin use: with terminal gauger use Qualified Code(s): E11.621 - Type 2 diabetes mellitus with foot ulcer; L97.509 - Non-pressure chronic ulcer of other part of unspecified foot with unspecified severity; Z79.4 - assistant terminal manager (current) use of insulin (2) CKD (chronic kidney disease) Chronic kidney disease stage: unspecified stage Qualified Code(s): N18.9 - Chronic kidney disease, unspecified (3) Intractable vomiting Nausea presence: with nausea Vomiting type: unspecified Qualified Code(s): R11.2 - Nausea with vomiting, unspecified
[2019-12-05 19:13] LABS: Base Excess ABG -0.8 mEq/L (-9-1.8); HCO3 ABG 25 mmol/L (19-24); Oxygen Saturation ABG 89.6 % (90-95); PCO2 ABG 47 mmHg (35-46); PO2 ABG 56 mmHg (80-95); pH ABG 7.35 (7.35-7.45)
[2019-12-05 19:19] LABS: Allen Test POS (Pos)
[2019-12-05] MEDS ORDERED: POLYETHYLENE (MIRALAX) 17 GM PACK PO PRN (19:47)
[2019-12-05] MEDS ORDERED: NITROGLYCERIN SL 0.4 MG/TAB TAB SL PRN (19:47)
[2019-12-05] MEDS ORDERED: SODIUM CHLORIDE 0.9% 1000ML 1,000 ML IV SCH (19:47)
[2019-12-05] MEDS ORDERED: ONDANSETRON INJ 2 MG/ML 2 ML VIAL IV PRN (19:47)
[2019-12-05] MEDS ORDERED: PIPERACILL/TAZOBAC CONSULT ACTIVE PRN (19:47)
[2019-12-05] MEDS ORDERED: VANCOMYCIN CONSULT ACTIVE PRN (19:47)
[2019-12-05] MEDS ORDERED: ALBUTEROL HFA 8 GM INHALER INH PRN (19:51)
[2019-12-05] MEDS ORDERED: VANCOMYCIN HCL 2,500 MG in SODIUM CHLORIDE 0.9% 500 ML IV ONE (20:00)
[2019-12-05] MEDS ORDERED: PHARMACY GLYCEMIC MGMT CONSULT PRN (20:12)
[2019-12-05] MEDS ORDERED: TAZOBACTAM IV ONE (20:15)
[2019-12-05] MEDS ORDERED: DEXTROSE 5% IV ONE (20:15)
[2019-12-05] MEDS ORDERED: PIPERACILLIN IV ONE (20:15)
--- NOTE | 2019-12-05 20:22 | CT Scan Report ---
CT chest wo con CLINICAL HISTORY: 74 years-old Male presenting with sob, wheezing, history of septic emboli. TECHNIQUE: Multidetector CT imaging of the chest was performed without the use of intravenous contras t. IV contrast: None. One or more dose lowering techniques were used consistent with the principles o f ALARA (as low as reasonably achievable), including automatic exposure control, mA or kV adjustment to individual patient size, and/or use of iterative reconstruction. COMPARISON: 03/20/2019. CT DOSE (mGy.cm): The estimated cumulative dose is 804.90 mGy.cm. FINDINGS: Furniture Dipper topogram: Left subclavian pacer with leads to the right atrium and right ventricular apex. Soft tissues: Normal thyroid and thoracic inlet. Gynecomastia. No axillary, supraclavicular, or media stinal lymphadenopathy. Evaluation of the jeffrey limited without intravenous contrast. Atherosclerosis of the aorta. Borderline enlargement of the main pulmonary artery. Multichamber enlargement of the he art. Coronary artery and aortic valve calcification. No pericardial or pleural effusion. Upper abdome n normal. Lungs and airways: No pneumothorax. Central airways patent. Pulmonary arteries enlarged relative to a djacent bronchi. Mild interlobular septal thickening at the lung bases. Relatively less aeration of t he lower lobes in comparison to the upper lobes with dependent atelectasis evident. There is a wedge resection margin along the left major fissure. Significant interval decrease in prior centrilobular a nd basilar predominant solid nodules. These previously had a halo of groundglass. A new predominantly solid dominant nodule is evident in the left upper lobe measuring 10 mm (series 4 image 124). Minima l surrounding nodules in the left upper lobe also noted. Musculoskeletal: Degenerative changes of the spine. Old fracture deformity of the posterior right sev enth rib. There is also an acute fracture of the posterior right seventh rib. This is new from prior. Additional old fracture deformities of several right anterolateral ribs. IMPRESSION: 1. Acute fracture of the posterior right seventh rib. This is adjacent to chronic posttraumatic defo rmity. 2. Interval development of a predominantly solid nodule in the left upper lobe measuring 10 mm. Give n associated view additional left upper lobe nodules, this may be infectious or inflammatory in etiol ogy. This requires follow-up as a neoplastic etiology is not excluded. Follow-up per Fleischner Socie ty 2017 recommendations below. 3. Essential complete resolution of the prior multifocal basilar predominant nodules. 4. Bibasilar atelectasis. 5. Cardiomegaly with volume overload and mild congestive change. No peyton pulmonary edema at this ti me. Summary of Fleischner Society 2017 Recommendations (H Bonny, et al. Guidelines for management of i ncidental pulmonary nodules detected on CT images: From the Fleischner Society 2017. Radiology 2017; 284: 228-243.) SOLID NODULES Single nodule; size < 6 mm * Low risk patients: No routine follow-up * High risk patients: Optional CT at 12 months Single nodule; size 6-8 mm * Low risk patients: CT at 6-12 months, then consider CT at 18-24 months * High risk patients: CT at 6-12 months, then at 18-24 months Single nodule; size > 8 mm * Either low or high risk patients: Consider CT at 3 months, PET/CT, or tissue sampling Multiple nodules; size < 6 mm * Low risk patients: No routine follow up * High risk patients: Optional CT at 12 months Multiple nodules; size 6-8 mm * Low risk patients: CT at 3-6 months, then consider CT at 18-24 months * High risk patients: CT at 3-6 months, then at 18-24 months Multiple nodules; size > 8 mm * Low risk patients: CT at 3-6 months, then consider at 18-24 months * High risk patients: CT at 3-6 months, then at 18-24 months SUBSOLID NODULES Single ground-glass nodule * Nodule size < 6 mm: No routine follow-up * Nodule size > or = 6 mm: CT at 6-12 months to confirm persistence, then CT every 2 years until 5 y ears Single part-solid nodule * Nodule size < 6 mm: No routine follow-up * Nodules size > or = 6 mm: CT at 3-6 months to confirm persistence. If unchanged and solid componen t remains < 6 mm, annual CT should be performed for 5 years Multiple nodules * Nodule size < 6 mm: CT at 3-6 months. If stable, consider CT at 2 and 4 years. * Nodules size > or = 6 mm: CT at 3-6 months. Subsequent management based on the most suspicious nod ule(s) NOTE: 1) These guidelines apply to incidental nodules. These guidelines do NOT apply to patients younger th an 35 years, immunocompromised patients, or patients with cancer. 2) Risk categories: * Low risk patients: Minimal or absent history of smoking and/or other known risk factors * High risk patients: History of smoking, exposure to other carcinogens, emphysema, fibrosis, upper lobe location, family history of lung cancer, etc. 3) If a nodule up to 8 mm is partly solid or is ground glass, further follow-up is required after 24 months to exclude possible slow growing adenocarcinoma. ACT 112: Negative or not required by law. Electronically signed by: Royer Leija M.D. 12/05/2019 8:21 PM
--- NOTE | 2019-12-05 20:26 | XRay Report ---
XR foot RT 2V CLINICAL HISTORY: 74 years-old Male presenting with right lateral wound - r/o osteo. TECHNIQUE: Frontal and lateral views of the right foot were obtained. COMPARISON: None. FINDINGS: Postsurgical changes of resection of the distal and middle phalanges of the second toe and the head. This is new from prior. Chronic deformity of the first metatarsophalangeal joint with osseous destruc tion of the head of the first metatarsal as on prior exam. Associated osteophytosis is also noted. Un derlying osteopenia is suspected. Allowing for the degree of osteopenia, no osseous erosion or perios teal reaction. No acute fracture or malalignment. Enthesophyte at the origin of the plantar fascia. P rominent atherosclerotic calcification. Minimal soft tissue irregularity may be present over the late ral aspect of the forefoot at the level of the head of the fifth metatarsal. This may correspond with the reported right lateral wound. IMPRESSION: 1. Allowing for osteopenia, no radiographic evidence of osteomyelitis. 2. The reported soft tissue wound may be present over the lateral aspect of the fifth metatarsal. 3. Postsurgical changes of the second toe. 4. Chronic destructive changes of the first MTP joint. 5. No acute osseous injury. ACT 112: Negative or not required by law. Electronically signed by: Royer Leija M.D. 12/05/2019 8:25 PM
[2019-12-05] MEDS ORDERED: GLUCOSE 40% GEL 15 GM TUBE PO PRN (20:30)
[2019-12-05] MEDS ORDERED: DEXTROSE 50% 50 ML SYRINGE IV PRN (20:30)
[2019-12-05] MEDS ORDERED: GLUCOSE 10 TABS/TUBE PO PRN (20:30)
[2019-12-05] MEDS ORDERED: CARBOHYDRATES FOR HYPOGLYCEMIA PO PRN (20:30)
[2019-12-05] MEDS ORDERED: GLUCAGON FOR INJ 1 MG VIAL SQ PRN (20:30)
[2019-12-05] MEDS ORDERED: BUDESONIDE/FORMOTEROL FUMARATE 80/4.5 60 PUFFS/INHALER INH SCH (21:00)
[2019-12-05] MEDS ORDERED: INSULIN GLARGINE SOLOSTAR 100 UNITS/ML 3 ML PEN SQ SCH (21:00)
[2019-12-05] MEDS ORDERED: NON-FORMULARY MEDICATION (Vitamins A,C,E-Zinc-Copper [Preservision Areds] 1 TAB) PO SCH (21:00)
[2019-12-05] MEDS ORDERED: HydrALAZINE HCL 20 MG/ML VIAL IV STA ×2 (21:07→22:39)
[2019-12-05] MEDS: ATORVASTATIN 40 MG TAB PO SCH (21:12)
[2019-12-05] MEDS: SERTRALINE HCL 50 MG TABLET PO SCH (21:12)
[2019-12-05] MEDS: AMIODARONE 200 MG TAB PO SCH (21:13)
[2019-12-05] MEDS: INSULIN ASPART 100 UNITS/ML 3 ML PEN SC SCH (21:14)
[2019-12-05] MEDS: APIXABAN 5 MG TABLET PO SCH (21:38)
[2019-12-05] MEDS ORDERED: HydrALAZINE HCL 20 MG/ML VIAL IV PRN (21:53)
[2019-12-05] MEDS: SODIUM CHLORIDE 0.9% 1000ML 1,000 ML IV SCH (23:09)
[2019-12-06] MEDS: INSULIN ASPART 100 UNITS/ML 3 ML PEN SC SCH ×5 (00:27→20:42)
[2019-12-06] MEDS: ACETAMINOPHEN 325 MG TAB PO PRN ×4 (00:30→20:40)
[2019-12-06] MEDS ORDERED: INSULIN ASPART 100 UNITS/ML 3 ML PEN SC SCH (02:00)
[2019-12-06] MEDS: PIPERACILLIN/TAZOBACTAM 3.375 GM in DEXTROSE 5% 100 ML IV SCH ×3 (02:31→18:44)
[2019-12-06] MEDS: LEVOTHYROXINE SODIUM 100 MCG TABLET PO SCH (06:14)
[2019-12-06 07:02] LABS: Basophils # (auto) 0.02 K/uL (0-0.2); Basophils % (auto) 0.2 %; Eosinophils # (auto) 0.02 K/uL (0-0.5); Eosinophils % (auto) 0.2 %; Hematocrit (blood only) 39.1 % (42-52); Hemoglobin 12.8 g/dL (14.0-18.0); Immature Granulocytes # (auto) 0.05 K/uL (0.00-0.02); Immature Granulocytes % (auto) 0.4 %; Lymphocytes # (auto) 0.84 K/uL (1.2-3.4); Lymphocytes % (auto) 7.3 %; Mean Corpuscular Hemoglobin 30.7 pg (25-34); Mean Corpuscular Hgb Conc 32.7 g/dL (32-36); Mean Corpuscular Volume 93.8 fL (80-100); Mean Platelet Volume 9.7 fL (7.4-10.4); Monocytes # (auto) 1.25 K/uL (0.11-0.59); Monocytes % (auto) 10.8 %; Neutrophils # (auto) 9.37 K/uL (1.4-6.5); Neutrophils % (auto) 81.1 %; Platelet Count 180 K/uL (130-400); RDW Coefficient of Variation 14.4 % (11.5-14.5); RDW Standard Deviation 48.9 fL (36.4-46.3); Red Blood Count 4.17 M/uL (4.7-6.1); White Blood Count 11.55 K/uL (4.8-10.8)
[2019-12-06 07:14] LABS: Estimated Average Glucose 214 mg/dl; Hemoglobin A1C 9.1 % (4.5-5.6)
[2019-12-06 07:36] LABS: Albumin Level 3.3 gm/dl (3.4-5.0); BUN Creatinine Ratio 15.7 (10-20); Calcium 9.2 mg/dl (8.5-10.1); Creatinine Clr Calc Pharmacy 33.6 ml/min; Est GFR (African American) 29.9; Est GFR (Non-African American) 25.8; Potassium 4.1 mmol/L (3.5-5.1)
[2019-12-06 07:39] LABS: Albumin Globulin Ratio 0.8 (0.9-2); Bilirubin,Total 0.6 mg/dl (0.2-1); Globulin 4.2 gm/dl (2.5-4.0); Total Protein 7.5 gm/dl (6.4-8.2)
[2019-12-06] MEDS: DULOXETINE HCL 60 MG CAP PO SCH (08:27)
[2019-12-06] MEDS: METOPROLOL SUCC 50MG EXT REL TAB PO SCH (08:27)
[2019-12-06] MEDS: APIXABAN 5 MG TABLET PO SCH ×2 (08:28→20:41)
[2019-12-06] MEDS: PANTOprazole 40 MG TAB PO SCH (08:28)
[2019-12-06] MEDS: EZETIMIBE 10 MG TABLET PO SCH (08:28)
--- NOTE | 2019-12-06 08:32 | Hospitalist Progress Note ---
Date of Service December 06, 2019 Assessment & Plan (1) Intractable vomiting: Resolved CT abd/pelvis with chronic pancreatitis and multiple cysts and small indeterminate nodules on kidneys. No obstruction Blood cultures pending, lactic acid normal - continue vanc and zosyn for now Xray right foot - no apparent osteomyelitis CXR with chronic changes - Chest CT shows: - Interval development of a predominantly solid nodule in the left upper lobe measuring 10 mm. Given associated view additional left upper lobe nodules, this may be infectious or inflammatory in etiology. This requires follow-up as a neoplastic etiology is not excluded. - Essential complete resolution of the prior multifocal basilar predominant nodules. - Bibasilar atelectasis. - Cardiomegaly with volume overload and mild congestive change. No peyton pulmonary edema at this time. DC IVF Zofran as needed (2) Encephalopathy: Toxic vs metabolic - improving Patient with new script for baclofen taken for the last three days - held ABG with mild CO2 retention and hypoxia though pulse ox wnl CT head without acute changes (3) Right flank pain: On CT - Acute fracture of the posterior right seventh rib. This is adjacent to chronic posttraumatic deformity - patient reports falling down the stairs last week. He denies hitting his head (4) CKD (chronic kidney disease): CKD IV Creat at baseline which is around 2.4 (5) HTN (hypertension): Continue home metoprolol - patient with hypertension over night with systolics in the 200s, better controlled today. (6) Urinary retention: Required Fernandez catheter placement last night. Urine is brown with sediment today. Ordered UA and a CK Will wait to consult uro or nephro to see if urine clears (7) Atrial fibrillation: With pacing - continue amiodarone and Eliquis (8) Type 2 diabetes mellitus: Hyperglycemic in the 300s on admission A1c 9.1 Hold glipizide consulted glycemic pharmacist Diabetic education (9) Hyperlipidemia: Continue atorvastatin (10) CAD (coronary artery disease): Continue atorvastatin, metoprolol - not on ASA (11) History of osteomyelitis: As above (12) Transaminitis: Marginal and chronic Alk phos also elevated at 168 Will trend (13) Pancreatic abnormality: chronic pancreatitis on CT Lipase wnl No epigastric or abdominal pain (14) Hypothyroidism: continue home levothyroxine TSH pending (15) Depression: Continue duloxetine and sertraline - will probably want to cut one of these meds, will discuss with patient and (16) DVT prophylaxis: Benjamin Supervising Physician Co-Signing Physician Notes I supervised Leyda Bennett NP on this patient's care. I examined the patient today independently of her. I discussed the plan of care with her with the plan being as written in her note except for any following changes/exceptions: None. Patient reports worse, blurry vision in the left eye. No curtain dropping, no shadow, no "spider" in the vision. No flashes, floaters, or pain. Did an eye exam. Could see the retina. No hemorrhage or retinal detachment noted, but exam was poor quality with undilated, small pupils. He also has a lateral deviation of his left eye which his reports is new. Discussed the fact that we are not sure why he has blurry vision at this time. It could be a straightforward as edema from his blood sugars. If it is a hemorrhage, there would be no acute action anyhow. If it is a detachment though, time could be more crucial. We will likely not have any invoice machine operator able to see him until Monday at the earliest. The only alternative would be to transfer him to a tertiary care center. He and his are both in agreement that they do not want this. They would prefer to stay at [facility], even if it means they have to delay an eye exam. We will work to get someone in to the hospital to see him, or he also has an appointment with his retina doctor on Monday. Subjective Mr. Rea is much more alert today, oriented to person and place. He has a headache on the top of his head on the right side and is complaining of blurred vision. He is not having any nausea or vomiting. No sob or cough ROS Constitutional: no chills, aches, sweats or fever Respiratory: no sob,cough, sputum, or wheezing Cardiac: no chest pain, palpitations, edema, orthopnea or lightheadedness GI: no abdominal pain, nausea, vomiting, diarrhea or constipation : no dysuria or hesitancy Extremities: no joint pain or weakness Skin: no rash All other systems reviewed and negative Physical Exam Physical Exam: General: no distress Eyes: normal inspection, PERLL Respiratory: chest non tender, clear to auscultation, normal breath sounds, no respiratory distress, no accessory muscle use Cardiac: regular rate and rhythm, no rub or gallop, no murmur, no edema, no jvd GI/: active bowel sounds, no abd pain or tenderness, soft, non distended Extremities: normal range of motion, normal strength, non tender Neuro/Psych: alert and oriented to person and place, normal mood and affect, CN II - XII intact Skin: normal color, dry Results & Data ([facility]) Vital Signs (Past 12 Hours) Vital Signs Temp Pulse Resp BP BP Pulse Ox 12/06/19 07:28 36.2 C L 18 167/72 H 92 12/06/19 04:41 36.3 C L 64 18 141/65 H 91 12/05/19 23:43 36.7 C 64 18 163/71 H 95 12/05/19 22:18 60 203/90 H 12/05/19 21:58 79 190/81 H 199/81 H 12/05/19 20:54 64 216/88 H 220/97 H PG Care Time/CCT Total # of Minutes Spent Total Time Spent with Patient: Total time spent is greater than 50% in coordination of care (as documented) at patient's floor/unit and/or counseling patient: Coding Level of Care Code 27128 Subseq Hosp Care Lvl 3 Diagnoses Intractable vomiting R11.2 Nausea presence: with nausea Vomiting type: unspecified Encephalopathy G93.40 Right flank pain R10.9 CKD (chronic kidney disease) N18.9 Chronic kidney disease stage: unspecified stage HTN (hypertension) I10 Urinary retention R33.9 Atrial fibrillation I48.91 Type 2 diabetes mellitus E11.621; L97.509; Z79.4 Diabetes mellitus complication detail: with foot ulcer Diabetes mellitus complication status: with skin complications Diabetes mellitus usp insulin use: with oysterman use Hyperlipidemia E78.5 CAD (coronary artery disease) I25.10 History of osteomyelitis Z87.39 Transaminitis R74.0 Pancreatic abnormality Q45.3 Hypothyroidism E03.9 Depression F32.9 DVT prophylaxis Z29.9 (1) Type 2 diabetes mellitus Diabetes mellitus complication detail: with foot ulcer Diabetes mellitus complication status: with skin complications Diabetes mellitus oysterman insulin use: with oysterman use Qualified Code(s): E11.621 - Type 2 diabetes mellitus with foot ulcer; L97.509 - Non-pressure chronic ulcer of other part of unspecified foot with unspecified severity; Z79.4 - joint terminal attack controller (current) use of insulin (2) CKD (chronic kidney disease) Chronic kidney disease stage: unspecified stage Qualified Code(s): N18.9 - Chronic kidney disease, unspecified (3) Intractable vomiting Nausea presence: with nausea Vomiting type: unspecified Qualified Code(s): R11.2 - Nausea with vomiting, unspecified
[2019-12-06] MEDS: SODIUM CHLORIDE 0.9% 1000ML 1,000 ML IV SCH (08:54)
--- NOTE | 2019-12-06 09:10 | Pharmacy Report ---
Pharmacy Abx Dose Short Note - Date of Service December 06, 2019 - Assessment & Plan A/P Vancomycin and zosyn started on second shift yesterday evening. Pt's renal fxn looks to be at baseline. Current antibx orders seem reasonable. pt's current p'kinetics: t1/2=21hrs, ke=[id number]. BC are ordered and pending. His habitus is moderately indicative of vancomycin accumulation. Vanco 1500mg (14mg/kg) Q24 set to start today @1400 trough ordered prior to Css to ensure we are reaching adequate/safe levels, see MAR for further details Zosyn EI 3.375g q8, appropriate for eCrCl >20cc/min and clinical status Pharmacy will continue to follow and will adjust dose/frequency as necessary. Thank you.
--- NOTE | 2019-12-06 10:21 | CT Scan Report ---
CT head/brain wo con CLINICAL HISTORY: 74 years-old Male with headache, vision changes. Acute headache with vision change s TECHNIQUE: Multiple axial CT images of the head were obtained without contrast. A dose lowering tech nique was utilized adhering to the principles of ALARA. CT DOSE: 614.27 mGy.cm COMPARISON: None. FINDINGS: No acute intracranial hemorrhage, midline shift, intracranial mass, hydrocephalus, territorial ischem ia or abnormal extra-axial collection. Age-related involutional changes with ex vacuo ventriculomegal y. Patchy white matter hypodensities suggest chronic microvascular ischemic disease. Cerebral vascula r calcifications are noted. The calvarium is intact. Prior bilateral lens replacement. The paranasal sinuses, mastoid air cells, and middle ear cavities are clear. IMPRESSION: No acute intracranial abnormality. ACT 112: Negative or not required by law. The above report was generated using voice recognition software. It may contain grammatical, syntax o r spelling errors. Electronically signed by: Jefe Ornelas M.D. 12/06/2019 10:19 AM
[2019-12-06] MEDS ORDERED: Nursing to Pharmacy Communication ONE (11:54)
[2019-12-06] MEDS ORDERED: VANCOMYCIN HCL 1,500 MG in SODIUM CHLORIDE 0.9% 500 ML IV SCH (14:00)
--- NOTE | 2019-12-06 14:23 | Pharmacy Report ---
Pharmacy Glycemic Short Note 2 - Date of Service December 06, 2019 - Glycemic Short BSG Results (Last 24 hours): 12/05/19 12/05/19 12/05/19 15:39 18:02 21:12 Glucose POC Glucose 310 H* 298 H 296 H 12/06/19 12/06/19 12/06/19 00:24 02:28 06:06 Glucose POC Glucose 307 H* 258 H 136 H 12/06/19 12/06/19 12/06/19 06:40 06:41 11:28 Glucose 130 H POC Glucose 121 H 141 H OUTPATIENT ANTIDIABETIC REGIMEN: * Glipizide 10mg QAM 5mg HS, Lantus 28u HS, Humalog SSI ASSESSMENT: * Pt's BSGs have normalized. He is now ordered a diet. He is receiving vancomycin/zosyn. PLAN FOR INPATIENT GLYCEMIC CONTROL: * Hold outpatient oral diabetes medications * Basal insulin * Lantus 20 or 25units based on HS scale * Bolus insulin * NovoLog per scale ACHS or Q6hrs while NPO * Goal Range: Low 120 mg/dL - High 160 mg/dL * Correction Factor: 25 mg/dL/unit * Nutritional / Prandial insulin per carb ratio of 1 unit per 8 grams CHO consumed
[2019-12-06] MEDS: LIDOCAINE 5% 1 PATCH TD SCH (14:38)
[2019-12-06] MEDS ORDERED: AMLODIPINE BESYLATE 5 MG TAB PO ONE (15:47)
[2019-12-06 16:47] LABS: BUN Creatinine Ratio 14.7 (10-20); Calcium 8.6 mg/dl (8.5-10.1); Creatinine Clr Calc Pharmacy 31.3 ml/min; Est GFR (African American) 27.4; Est GFR (Non-African American) 23.6; Potassium 4.4 mmol/L (3.5-5.1)
[2019-12-06] MEDS: SERTRALINE HCL 50 MG TABLET PO SCH (20:41)
[2019-12-06] MEDS: ATORVASTATIN 40 MG TAB PO SCH (20:41)
[2019-12-06] MEDS: AMIODARONE 200 MG TAB PO SCH (20:41)
[2019-12-06] MEDS: FLUTICASONE/VILANTEROL 100/25MCG 14 PUFFS/INHALER INH SCH (20:42)
[2019-12-06] MEDS: INSULIN GLARGINE SOLOSTAR 100 UNITS/ML 3 ML PEN SQ SCH (20:42)
--- NOTE | 2019-12-06 20:47 | Ultrasound Report ---
ULTRASOUND KIDNEYS AND BLADDER CLINICAL HISTORY: Decreased urine output. COMPARISON STUDY: Abdominal CT dated 12/05/2019. TECHNIQUE: Real-time, grayscale, and color flow sonography of the kidneys and bladder is performed. I mages are reviewed in the transverse and longitudinal planes. FINDINGS: Kidneys: The kidneys are atrophic and demonstrate increased cortical echotexture. The right kidney me asures 11.1 x 5.0 x 5.4 cm and the left kidney measures 11.4 x 6.8 x 6.0 cm. There is no hydronephro sis. No shadowing renal calculi are identified. A 1.6 cm exophytic is noted in the lower pole of the right kidney. There is no sonographic evidence of solid renal mass lesion. No perinephric fluid is id entified. Bladder: The bladder is decompressed around a Fernandez catheter and cannot be assessed. IMPRESSION: 1. Findings are consistent with medical renal disease. There is no hydronephrosis. 2. The bladder was decompressed around a Fernandez catheter and could not be evaluated. ACT 112: Negative or not required by law. Electronically signed by: Jorgito Berrios M.D. 12/06/2019 8:46 PM
[2019-12-07] MEDS: ACETAMINOPHEN 325 MG TAB PO PRN ×3 (00:53→23:09)
[2019-12-07] MEDS: PIPERACILLIN/TAZOBACTAM 3.375 GM in DEXTROSE 5% 100 ML IV SCH ×3 (02:23→17:01)
[2019-12-07] MEDS: INSULIN ASPART 100 UNITS/ML 3 ML PEN SC SCH ×5 (04:00→20:18)
[2019-12-07] MEDS: LEVOTHYROXINE SODIUM 100 MCG TABLET PO SCH (06:14)
[2019-12-07] MEDS: LIDOCAINE 5% 1 PATCH TD SCH (07:58)
[2019-12-07] MEDS: METOPROLOL SUCC 50MG EXT REL TAB PO SCH (07:59)
[2019-12-07] MEDS: DULOXETINE HCL 60 MG CAP PO SCH (07:59)
[2019-12-07] MEDS: APIXABAN 5 MG TABLET PO SCH ×2 (07:59→20:21)
[2019-12-07] MEDS: PANTOprazole 40 MG TAB PO SCH (07:59)
[2019-12-07] MEDS: EZETIMIBE 10 MG TABLET PO SCH (07:59)
[2019-12-07] MEDS ORDERED: AMLODIPINE BESYLATE 5 MG TAB PO SCH (09:00)
[2019-12-07 09:10] LABS: Basophils # (auto) 0.02 K/uL (0-0.2); Basophils % (auto) 0.3 %; Eosinophils # (auto) 0.22 K/uL (0-0.5); Hematocrit (blood only) 38.7 % (42-52); Hemoglobin 12.5 g/dL (14.0-18.0); Immature Granulocytes # (auto) 0.02 K/uL (0.00-0.02); Immature Granulocytes % (auto) 0.3 %; Lymphocytes # (auto) 0.61 K/uL (1.2-3.4); Lymphocytes % (auto) 8.3 %; Mean Corpuscular Hemoglobin 30.6 pg (25-34); Mean Corpuscular Hgb Conc 32.3 g/dL (32-36); Mean Corpuscular Volume 94.9 fL (80-100); Mean Platelet Volume 9.9 fL (7.4-10.4); Monocytes # (auto) 0.42 K/uL (0.11-0.59); Monocytes % (auto) 5.7 %; Neutrophils # (auto) 6.09 K/uL (1.4-6.5); Neutrophils % (auto) 82.4 %; Platelet Count 153 K/uL (130-400); RDW Coefficient of Variation 14.3 % (11.5-14.5); RDW Standard Deviation 49.5 fL (36.4-46.3); Red Blood Count 4.08 M/uL (4.7-6.1); White Blood Count 7.38 K/uL (4.8-10.8)
[2019-12-07 09:44] LABS: BUN Creatinine Ratio 14.1 (10-20); Calcium 8.9 mg/dl (8.5-10.1); Creatinine Clr Calc Pharmacy 27.8 ml/min; Est GFR (African American) 23.6; Est GFR (Non-African American) 20.3; Potassium 4.4 mmol/L (3.5-5.1)
[2019-12-07 09:47] LABS: Albumin Globulin Ratio 0.7 (0.9-2); Bilirubin,Total 0.6 mg/dl (0.2-1); Globulin 4.3 gm/dl (2.5-4.0); Total Protein 7.3 gm/dl (6.4-8.2)
--- NOTE | 2019-12-07 12:44 | Hospitalist Progress Note ---
Date of Service December 07, 2019 Assessment & Plan (1) Intractable vomiting: Resolved CT abd/pelvis with chronic pancreatitis and multiple cysts and small indeterminate nodules on kidneys. No obstruction Blood cultures ngtd, lactic acid normal - discontinue vanc, continue zosyn for now Xray right foot - no apparent osteomyelitis CXR with chronic changes - Chest CT shows: - Interval development of a predominantly solid nodule in the left upper lobe measuring 10 mm. Given associated view additional left upper lobe nodules, this may be infectious or inflammatory in etiology. This requires follow-up as a neoplastic etiology is not excluded. - Essential complete resolution of the prior multifocal basilar predominant nodules. - Bibasilar atelectasis. - Cardiomegaly with volume overload and mild congestive change. No peyton pulmonary edema at this time. DC IVF Zofran as needed (2) Encephalopathy: Toxic vs metabolic - improving Patient with new script for baclofen taken for the last three days - held ABG with mild CO2 retention and hypoxia though pulse ox wnl CT head without acute changes (3) Vision abnormalities: Mr. Rea is complaining of decreased vision in his right eye starting 12/06. Per his opthamologist's office - Baseline vision is 20/400 in that eye. He has diabetic retinopathy and macular edema. He has received one dose of Avastin so far. Given his complaints, vitreous hemorrhage might be a possibility especially with his high blood pressures 2/6. He could also be experiencing worsening symptoms due to elevated blood sugars on admission. If it is a vitreal hemorrhage it will clear on its own and efforts to keep his blood pressure in check, keep head elevated and avoid bending over will be suffice for now. He can follow up up with Dr. Chong on Monday when he is in [place] assuming there is no acute worsening of his vision in the interim. Patient is not describing anything concerning for retinal detachment Right eye also with exotropia but this may be secondary to the vision loss. Could consider an MRI but patient and his are unsure if his pacer is compatible (4) CKD (chronic kidney disease): with acute kidney injury CKD IV Creat increased to 2.9 today Discontinue vancomycin, consult nephrology (5) Right flank pain: On CT - Acute fracture of the posterior right seventh rib. This is adjacent to chronic posttraumatic deformity - patient reports falling down the stairs last week. He denies hitting his head (6) HTN (hypertension): Continue home metoprolol, added amlodipine 5mg (7) Urinary retention: Required Fernandez catheter placement 2/. Urine initially dark brown with sediment, now clearing. UC pending though this was taken after initiation of antibiotics CK wnl (8) Atrial fibrillation: With pacing - continue amiodarone and Eliquis (9) Type 2 diabetes mellitus: Hyperglycemic in the 300s on admission A1c 9.1 Hold glipizide consulted glycemic pharmacist Diabetic education (10) Hyperlipidemia: Continue atorvastatin (11) CAD (coronary artery disease): Continue atorvastatin, metoprolol - not on ASA (12) History of osteomyelitis: As above (13) Transaminitis: Marginal and chronic Alk phos also elevated at 168 Will trend (14) Pancreatic abnormality: chronic pancreatitis on CT Lipase wnl No epigastric or abdominal pain (15) Hypothyroidism: continue home levothyroxine TSH pending (16) Depression: Continue duloxetine and sertraline - will probably want to cut one of these meds, will discuss with patient and (17) DVT prophylaxis: Eliquis Subjective Mr. Rea continues to have blurred vision in his right eye and a headache. He otherwise has no complaints. ROS Constitutional: no chills, aches, sweats or fever Respiratory: no sob,cough, sputum, or wheezing Cardiac: no chest pain, palpitations, edema, orthopnea or lightheadedness GI: no abdominal pain, nausea, vomiting, diarrhea or constipation : no dysuria or hesitancy Extremities: no joint pain or weakness Skin: no rash All other systems reviewed and negative Review of Systems Review of Systems: All systems reviewed & are unremarkable except as noted in HPI & below Physical Exam Physical Exam: General: no distress Eyes: right eye exotropia, PERLL Respiratory: chest non tender, clear to auscultation, normal breath sounds, no respiratory distress, no accessory muscle use Cardiac: regular rate and rhythm, no rub or gallop, no murmur, no edema, no jvd GI/: active bowel sounds, no abd pain or tenderness, soft, non distended Extremities: normal range of motion, normal strength, non tender Neuro/Psych: alert and oriented x 3, normal mood and affect, no facial droop, no drift, tongue protrudes midline Skin: normal color, dry Results & Data ([facility]) Vital Signs (Past 12 Hours) Vital Signs Temp Pulse Resp BP Pulse Ox 12/07/19 11:53 36.5 C 60 19 166/79 H 90 12/07/19 07:52 36.3 C L 62 19 155/70 H 90 12/07/19 03:48 36.5 C 63 18 155/75 H 90 PG Care Time/CCT Total # of Minutes Spent Total Time Spent with Patient: Total time spent is greater than 50% in coordination of care (as documented) at patient's floor/unit and/or counseling patient: Coding Level of Care Code 43264 Subseq Hosp Care Lvl 3 Diagnoses Intractable vomiting R11.2 Nausea presence: with nausea Vomiting type: unspecified Encephalopathy G93.40 Vision abnormalities H53.9 CKD (chronic kidney disease) N18.9 Chronic kidney disease stage: unspecified stage Right flank pain R10.9 HTN (hypertension) I10 Urinary retention R33.9 Atrial fibrillation I48.91 Type 2 diabetes mellitus E11.621; L97.509; Z79.4 Diabetes mellitus shelter insulin use: with manager long term care use Diabetes mellitus complication status: with skin complications Diabetes mellitus complication detail: with foot ulcer Hyperlipidemia E78.5 CAD (coronary artery disease) I25.10 History of osteomyelitis Z87.39 Transaminitis R74.0 Pancreatic abnormality Q45.3 Hypothyroidism E03.9 Depression F32.9 DVT prophylaxis Z29.9 (1) Intractable vomiting Nausea presence: with nausea Vomiting type: unspecified Qualified Code(s): R11.2 - Nausea with vomiting, unspecified (2) CKD (chronic kidney disease) Chronic kidney disease stage: unspecified stage Qualified Code(s): N18.9 - Chronic kidney disease, unspecified (3) Type 2 diabetes mellitus Diabetes mellitus shelter insulin use: with shelter use Diabetes mellitus complication status: with skin complications Diabetes mellitus complication detail: with foot ulcer Qualified Code(s): E11.621 - Type 2 diabetes mellitus with foot ulcer; L97.509 - Non-pressure chronic ulcer of other part of unspecified foot with unspecified severity; Z79.4 - halfway (current) use of insulin
[2019-12-07] MEDS ORDERED: AMLODIPINE BESYLATE 5 MG TAB PO ONE (13:26)
[2019-12-07] MEDS: AMIODARONE 200 MG TAB PO SCH (20:20)
[2019-12-07] MEDS: ATORVASTATIN 40 MG TAB PO SCH (20:22)
[2019-12-07] MEDS: SERTRALINE HCL 50 MG TABLET PO SCH (20:22)
[2019-12-07] MEDS: INSULIN GLARGINE SOLOSTAR 100 UNITS/ML 3 ML PEN SQ SCH (20:28)
[2019-12-08] MEDS: FLUTICASONE/VILANTEROL 100/25MCG 14 PUFFS/INHALER INH SCH ×2 (02:15→20:44)
[2019-12-08] MEDS: PIPERACILLIN/TAZOBACTAM 3.375 GM in DEXTROSE 5% 100 ML IV SCH ×3 (02:54→17:15)
[2019-12-08] MEDS: LEVOTHYROXINE SODIUM 100 MCG TABLET PO SCH (05:23)
[2019-12-08 07:29] LABS: Creatinine Clr Calc Pharmacy 29.9 ml/min; Est GFR (African American) 26.2; Est GFR (Non-African American) 22.6
[2019-12-08] MEDS: DULOXETINE HCL 60 MG CAP PO SCH (08:16)
[2019-12-08] MEDS: INSULIN ASPART 100 UNITS/ML 3 ML PEN SC SCH ×4 (08:16→20:42)
[2019-12-08] MEDS: METOPROLOL SUCC 50MG EXT REL TAB PO SCH (08:17)
[2019-12-08] MEDS: PANTOprazole 40 MG TAB PO SCH (08:17)
[2019-12-08] MEDS: AMLODIPINE BESYLATE 5 MG TAB PO SCH (08:17)
[2019-12-08] MEDS: EZETIMIBE 10 MG TABLET PO SCH (08:17)
[2019-12-08] MEDS: APIXABAN 5 MG TABLET PO SCH ×2 (08:17→20:43)
[2019-12-08] MEDS: LIDOCAINE 5% 1 PATCH TD SCH (08:18)
[2019-12-08] MEDS: ACETAMINOPHEN 325 MG TAB PO PRN (08:25)
[2019-12-08] MEDS ORDERED: KETOROLAC TROMETHAMINE 15 MG/ML VIAL IV PRN (12:55)
[2019-12-08] MEDS ORDERED: SODIUM CHLORIDE 0.9% 500 ML IV SCH (13:00)
--- NOTE | 2019-12-08 13:29 | Nephrology Consultation ---
Date of Consultation December 08, 2019 Assessment & Plan (1) Foxho-jl-myqwnho kidney injury: -- Baseline Cr ~ 2.4. Patient has underlying diabetic nephropathy -- Urinalysis reveals proteinuria c/w diabetic nephropathy. Hematuria is related to nelson catheter. No cellular casts reported on microscopy -- Abdominal imaging was performed without IV contrast and was negative for obstruction -- SHILOH is potentially related to Vancomycin therapy. Note that cultures are negative, patient is afebrile and WBC# has normalized. Agree w/ stopping Vancomycin therapy -- Patient is clinically volume contracted. He is nonoliguric. Agree w/ aggressive hydration. SHILOH likely has a prerenal component. FeNa is pending -- Creatinine is already trending down off Vancomycin and with IVF. Will recheck PRP and urine microscopy in am History of Present Illness Reason for Consultation: SHILOH/CKD Attending Physician: Poncho Lopes MD History of Present Illness Mr. Rea is a 74 year old white male who is seen at the request of Leyda Bennett PA-c for evaluation of SHILOH/CKD. Medical records in the EMR were reviewed today and are summarized as follows: Mr. Rea was referred for [facility] Nephrology evaluation in 2013. Evaluation at that time revealed Cr 2.4, a bland urine sediment and microalbuminuria. His renal impairment was attributed to diabetic nephropathy. His medical history is also significant for AODM complicated by retinopathy, obesity, HTN, ASCVD, tachy-kobe syndrome s/p pacemaker, ARAUJO, BPH, COPD, gout and PVD. Mr. Rea presented w/ a 4 day h/o recurrent N&V. Evaluation revealed constipation on abdominal imaging. He was noted to have a new lesion on the lateral plantar surface of his R foot. Vancomycin therapy was provided. Creatinine has risen to 2.9 and Nephrology consultation is now requested. Allergies Allergy/AdvReac Type Severity Reaction Status Date / Time No Known Allergies Allergy Verified 12/05/19 14:22 Home Medications Home Medications Medication Instructions Recorded Confirmed Type Eliquis 5 mg PO BID 03/20/19 12/05/19 History PreserVision AREDS 1 tab PO BID 03/20/19 12/05/19 History amiodarone 200 mg PO HS 03/20/19 12/05/19 History atorvastatin 40 mg PO HS 03/20/19 12/05/19 History duloxetine 60 mg PO QAM 03/20/19 12/05/19 History ezetimibe 10 mg PO QAM 03/20/19 12/05/19 History levothyroxine 100 mcg PO QAM 03/20/19 12/05/19 History omeprazole 20 mg PO QAM 03/20/19 12/05/19 History sertraline 50 mg PO HS 03/20/19 12/05/19 History Symbicort 2 puff INHALATION HS 05/08/19 12/05/19 History nitroglycerin 0.4 mg SUBLINGUAL DIRECTED PRN 05/08/19 12/05/19 History Basaglar KwikPen U-100 Insulin 28 unit SUBCUT HS 07/24/19 12/05/19 History albuterol sulfate [ProAir HFA] 2 puff INHALATION QID PRN 07/24/19 12/05/19 History glipizide 5 mg PO HS 07/24/19 12/05/19 History glipizide 10 mg PO QAM 07/24/19 12/05/19 History metoprolol succinate 50 mg PO QAM 07/24/19 12/05/19 History insulin lispro [Humalog KwikPen 10 - 15 unit SUBCUT ACHS 08/20/19 12/05/19 History Insulin] baclofen 5 - 10 mg PO TID PRN 12/05/19 12/05/19 History doxycycline monohydrate 100 mg PO BID 12/05/19 12/05/19 History Patient History Medical History Acquired claw toe of right foot (Acute) Acquired hammer toe of right foot (Acute) Atrial fibrillation BPH (benign prostatic hyperplasia) CAD (coronary artery disease) stent x 1 () Callus (Acute) Chronic obstructive pulmonary disease CKD (chronic kidney disease) baseline creatinine 1.8-2.2 per chart review; PCP monitoring- no plan for dialysis at this time Depression Diabetes mellitus with diabetic polyneuropathy (Acute) Diabetes mellitus, type 2 IDDM Gout Hallux rigidus, left foot (Acute) Hallux rigidus, right foot (Acute) Hammertoe of left foot (Acute) Heart disease History of pleurisy hx 40+ years ago Hyperlipidemia Hypertension Ischemic cardiomyopathy Myocardial Infarction Neuropathic ulcer of toe of left foot (Acute) Osteomyelitis of great toe of right foot on abx 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 thoracentesis of left lung for pleurisy--approx 40+yrs ago, pt and are unsure History of phacoemulsification of cataract of both eyes with intraocular lens implantation History of transesophageal echocardiography (HERBER) 02/2019 Status post right foot surgery right great toe Family History Mother Family history of diabetes mellitus Father Family history of diabetes mellitus Brother Family history of diabetes mellitus Other No family history of adverse response to anesthesia Social History Preferred Language: Occitan Communication Ability: Effective Communication Tools: Letter Board, Picture Board, Facial Expression and Physical Gestures Hearing Ability: Normal Dog Barber Required: No Beliefs That Will Affect Care: None marital status: Current Living Situation: Spouse current occupational status: retired Other Information That Helps Us Care for You: No Feels Safe at Home: Yes Safety Concerns: Feels Safe At This Time Smoking Status: Former smoker Tobacco Type: cigarettes ; Age Started Using Tobacco: 19 ; Age Quit Using Tobacco: 48 ; packs per day: 2 ; Do You Dip or Chew Tobacco: No ; Number of Years Since Quit: 29 ; Second Hand Exposure: No ; Tobacco Cessation Education Requested by Patient: No Hx Alcohol Use: Yes Alcohol type: other Alcohol Intake Frequency Comment: Notes significant hx of binge drinking 30+ year ago Hx Substance Use: No caffeine: Yes (1 cup a day of tea ) during the past year weight has: decreased > 10 lbs Dental Care, Regularly: No Physical Activity Frequency: 1-2 Times per Week Seatbelt Use: never Do you think of yourself as: straight/heterosexual Sexual Activity: has been sexually active within the last 12 months Review of Systems Constitutional: + weakness; no fever and no chills Eyes: + worsening vision and + problem reported loss of vision R eye Ear, Nose, Mouth, Throat: no problem reported Respiratory: no cough and no dyspnea Cardiovascular: no chest pain, no palpitations and no edema Gastrointestinal: no abdominal pain, no nausea, no vomiting and no diarrhea/loose stools Genitourinary: no dysuria Musculoskeletal: no back pain Integumentary: no rash Neurologic: no falls, no dizziness and no confusion Physical Exam Constitutional: + overweight; not in distress Eyes: PERRL, conjunctivae normal, anicteric sclerae ENMT: external ear and nose normal, oropharynx normal Neck: trachea midline, no thyromegaly Respiratory: normal respiratory effort, lungs clear to auscultation Cardiovascular: RRR, no murmur, no edema Gastrointestinal (Abdomen): Inspection/Auscultation: + hypoactive bowel sounds Percussion/Palpation: abdomen nontender and no guarding Musculoskeletal: Extremities: no cyanosis Skin: no rashes, warm and dry Neurologic: awake; not confused Results & Data Vital Signs (Past 12 Hours) Vital Signs Temp Pulse Pulse Resp BP Pulse Ox 12/08/19 11:11 36.4 C L 70 19 160/99 H 96 12/08/19 07:37 36.5 C 62 20 174/88 H 97 12/08/19 07:27 62 12/08/19 03:52 36.2 C L 60 16 162/81 H 97 Laboratory Results Laboratory Tests 12/05/19 12/07/19 12/07/19 15:18 08:46 20:18 WBC 7.38 Hgb 12.5 L Hct 38.7 L Plt Count 153 Creatinine POC Glucose 150 H Urine Color Yellow Ur Specific [place] 1.024 Urine Protein 3+ H Urine Glucose (UA) 3+ H Urine Blood 2+ H Urine RBC (Auto) 10-30 H 12/08/19 06:16 WBC Hgb Hct Plt Count Creatinine 2.68 H POC Glucose Urine Color Ur Specific [place] Urine Protein Urine Glucose (UA) Urine Blood Urine RBC (Auto) PG Care Time/CCT Total # of Minutes Spent Total Time Spent with Patient: Total time spent is greater than 50% in coordination of care (as documented) at patient's floor/unit and/or counseling patient: Coding Level of Care Code 98925 Inpt Consult Level 5 Diagnoses Eiukl-dx-aocybnm kidney injury N17.9; N18.9
[2019-12-08] MEDS ORDERED: VANCOMYCIN TROUGH ONE (13:30)
--- NOTE | 2019-12-08 15:40 | Hospitalist Progress Note ---
Date of Service December 08, 2019 Assessment & Plan (1) Intractable vomiting: Resolved CT abd/pelvis with chronic pancreatitis and multiple cysts and small indeterminate nodules on kidneys. No obstruction Blood cultures ngtd, lactic acid normal - discontinued vanc, continue zosyn - Augmentin for home Xray right foot - no apparent osteomyelitis CXR with chronic changes - Chest CT shows: - Interval development of a predominantly solid nodule in the left upper lobe measuring 10 mm. Given associated view additional left upper lobe nodules, this may be infectious or inflammatory in etiology. This requires follow-up as a neoplastic etiology is not excluded. - Essential complete resolution of the prior multifocal basilar predominant nodules. - Bibasilar atelectasis. - Cardiomegaly with volume overload and mild congestive change. No [place] pulmonary edema at this time. 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 Rea has been complaining of decreased vision in his right eye starting 12/06. Per his opthamologist's office - Baseline vision is 20/400 in that eye. He has diabetic retinopathy and macular edema. He has received one dose of Avastin so far. Given his complaints, vitreous hemorrhage might be a possibility especially with his high blood pressures. He could also be experiencing worsening symptoms due to elevated blood sugars on admission. If it is a vitreal hemorrhage it will clear on its own and efforts to keep his blood pressure in check, keep head elevated and avoid bending over will be suffice for now. He can follow up up with Dr. Chong on Monday when he is in [place]. Patient is not describing anything concerning for retinal detachment Right eye also with exotropia but this may be secondary to the vision loss. MRI is unobtainable due to pacemaker, cannot perform CTA due to kidney function. Patient has no other concerning focal findings. - Amlodipine 10 mg added to regimen to better control blood pressures. - Toradol 15 mg IV given x1 dose for accompanying persistent right side headache with good effect (4) CKD (chronic kidney disease): with acute kidney injury CKD IV - baseline around 2.4 Creat increased to 2.9 2/ - vancomycin discontinued and nephrology consulted Nephrology recommends hydration, will check FeNa, prp, and microscopy am (5) Right flank pain: On CT - Acute fracture of the posterior right seventh rib. This is adjacent to chronic posttraumatic deformity - patient reports falling down the stairs last week. He denies hitting his head (6) HTN (hypertension): Continue home metoprolol, initiated amlodipine 10 mg, hydralazine prn (7) Urinary retention: Required Fernandez catheter placement 12/05. Prostate diminutive on CT. Urine initially dark brown with sediment, now clear. UC ngtd though this was taken after initiation of antibiotic. Given presentation, will treat for UTI - Augmentin for home CK wnl U/A on admission did have RBCs on microscopy - follow up with pcp Fernandez now removed and patient is able to void on his own. (8) Atrial fibrillation: With pacing - continue amiodarone and Eliquis (9) Type 2 diabetes mellitus: Hyperglycemic in the 300s on admission A1c 9.1 Hold glipizide while inpatient consulted glycemic pharmacist Diabetic education (10) Hyperlipidemia: Continue atorvastatin (11) CAD (coronary artery disease): Continue atorvastatin, metoprolol - not on ASA (12) History of osteomyelitis: As above (13) Transaminitis: Marginal and chronic Alk phos also elevated at 168 - follow up with pcp, liver normal on CT (14) Pancreatic abnormality: chronic pancreatitis on CT Lipase wnl No epigastric or abdominal pain (15) Hypothyroidism: continue home levothyroxine TSH 3.7 (16) Depression: Continue duloxetine and sertraline - follow up with pcp on considering discontinuing one of these medications as they are both serotinergic (17) DVT prophylaxis: Eliquis Dispo: if labs are acceptable in the morning , would discharge in the morning so that patient can go to his appointment with his retinal specialist at noon. Physical therapy recommending HH with nasra collado Subjective Mr. Rea continues to complain of a headache in the right top of his head. He did get relief with a one time dose of Toradol. He is complaining of some burning upon urination. Per nursing he is a bit unsteady on his feet. He continues to be hypertensive ROS Constitutional: no chills, aches, sweats or fever Respiratory: no sob,cough, sputum, or wheezing Cardiac: no chest pain, palpitations, edema, orthopnea or lightheadedness GI: no abdominal pain, nausea, vomiting, diarrhea or constipation : no dysuria or hesitancy Extremities: no joint pain or weakness Skin: no rash All other systems reviewed and negative Physical Exam Physical Exam: General: no distress Eyes: right eye exotropia, PERLL Respiratory: chest non tender, clear to auscultation, normal breath sounds, no respiratory distress, no accessory muscle use Cardiac: regular rate and rhythm, no rub or gallop, no murmur, no edema, no jvd GI/: active bowel sounds, no abd pain or tenderness, soft, non distended Extremities: normal range of motion, normal strength, non tender Neuro/Psych: alert and oriented x 3, normal mood and affect Skin: normal color, dry Results & Data ([facility]) Vital Signs (Past 12 Hours) Vital Signs Temp Pulse Pulse Resp BP Pulse Ox 12/08/19 11:11 36.4 C L 70 19 160/99 H 96 12/08/19 07:37 36.5 C 62 20 174/88 H 97 12/08/19 07:27 62 12/08/19 03:52 36.2 C L 60 16 162/81 H 97 PG Care Time/CCT Total # of Minutes Spent Total Time Spent with Patient: Total time spent is greater than 50% in coordination of care (as documented) at patient's floor/unit and/or counseling patient: Coding Level of Care Code 02473 Subseq Hosp Care Lvl 3 Diagnoses Intractable vomiting R11.2 Nausea presence: with nausea Vomiting type: unspecified Encephalopathy G93.40 Vision abnormalities H53.9 CKD (chronic kidney disease) N18.9 Chronic kidney disease stage: unspecified stage Right flank pain R10.9 HTN (hypertension) I10 Urinary retention R33.9 Atrial fibrillation I48.91 Type 2 diabetes mellitus E11.621; L97.509; Z79.4 Diabetes mellitus complication detail: with foot ulcer Diabetes mellitus complication status: with skin complications 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 Hyperlipidemia E78.5 CAD (coronary artery disease) I25.10 History of osteomyelitis Z87.39 Transaminitis R74.0 Pancreatic abnormality Q45.3 Hypothyroidism E03.9 Depression F32.9 DVT prophylaxis Z29.9 (1) Type 2 diabetes mellitus Diabetes mellitus complication detail: with foot ulcer Diabetes mellitus complication status: with skin complications 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
[2019-12-08] MEDS: SODIUM CHLORIDE 0.9% 1000ML 1,000 ML IV SCH (15:57)
[2019-12-08] MEDS: INSULIN GLARGINE SOLOSTAR 100 UNITS/ML 3 ML PEN SQ SCH (20:42)
[2019-12-08] MEDS: SERTRALINE HCL 50 MG TABLET PO SCH (20:43)
[2019-12-08] MEDS: AMIODARONE 200 MG TAB PO SCH (20:43)
[2019-12-08] MEDS: ATORVASTATIN 40 MG TAB PO SCH (20:43)
[2019-12-08 21:40] LABS: Appearance Urine Clear (Clear); Bacteria Urine Automated Negative (Negative); Bilirubin Urine Negative (Negative); Blood Urine 3+ (Negative); Cast Urine Automated 0 /lpf (0-5); Color Urine Yellow; Glucose Urine UA Negative (Negative); Ketones Urine Negative (Negative); Leukocyte Esterase Urine Negative (Negative); Nitrite Urine Negative (Negative); Protein Urine 1+ (Negative); RBC Urine Automated >30 /hpf (0-4); Specific Gravity Urine 1.018 (1.000-1.030); Urobilinogen Urine Negative (Negative)
[2019-12-09] MEDS: PIPERACILLIN/TAZOBACTAM 3.375 GM in DEXTROSE 5% 100 ML IV SCH ×2 (01:01→08:24)
[2019-12-09] MEDS: SODIUM CHLORIDE 0.9% 1000ML 1,000 ML IV SCH ×2 (01:15→11:20)
[2019-12-09] MEDS: LEVOTHYROXINE SODIUM 100 MCG TABLET PO SCH (05:35)
[2019-12-09 06:15] LABS: Basophils # (auto) 0.03 K/uL (0-0.2); Basophils % (auto) 0.5 %; Eosinophils # (auto) 0.36 K/uL (0-0.5); Eosinophils % (auto) 5.8 %; Hematocrit (blood only) 39.5 % (42-52); Immature Granulocytes # (auto) 0.03 K/uL (0.00-0.02); Immature Granulocytes % (auto) 0.5 %; Lymphocytes # (auto) 1.08 K/uL (1.2-3.4); Lymphocytes % (auto) 17.4 %; Mean Corpuscular Hemoglobin 30.8 pg (25-34); Mean Corpuscular Hgb Conc 32.9 g/dL (32-36); Mean Corpuscular Volume 93.6 fL (80-100); Mean Platelet Volume 9.3 fL (7.4-10.4); Monocytes # (auto) 0.71 K/uL (0.11-0.59); Monocytes % (auto) 11.5 %; Neutrophils # (auto) 3.98 K/uL (1.4-6.5); Neutrophils % (auto) 64.3 %; Platelet Count 136 K/uL (130-400); RDW Coefficient of Variation 14.3 % (11.5-14.5); Red Blood Count 4.22 M/uL (4.7-6.1); White Blood Count 6.19 K/uL (4.8-10.8)
[2019-12-09 06:50] LABS: BUN Creatinine Ratio 15.3 (10-20); Calcium 8.8 mg/dl (8.5-10.1); Creatinine Clr Calc Pharmacy 30.9 ml/min; Est GFR (African American) 26.6; Potassium 4.4 mmol/L (3.5-5.1)
[2019-12-09] MEDS: DULOXETINE HCL 60 MG CAP PO SCH ×2 (08:24→08:25)
[2019-12-09] MEDS: AMLODIPINE BESYLATE 5 MG TAB PO SCH (08:25)
[2019-12-09] MEDS: APIXABAN 5 MG TABLET PO SCH (08:25)
[2019-12-09] MEDS: LIDOCAINE 5% 1 PATCH TD SCH (08:25)
[2019-12-09] MEDS: EZETIMIBE 10 MG TABLET PO SCH (08:25)
[2019-12-09] MEDS: PANTOprazole 40 MG TAB PO SCH (08:25)
[2019-12-09] MEDS: METOPROLOL SUCC 50MG EXT REL TAB PO SCH (08:25)
[2019-12-09] MEDS: INSULIN ASPART 100 UNITS/ML 3 ML PEN SC SCH (08:28)
--- NOTE | 2019-12-09 09:02 | Pharmacy Report ---
Pharmacy Glycemic Short Note 2 - Date of Service December 09, 2019 - Glycemic Short BSG Results (Last 24 hours): 12/08/19 12/08/19 12/08/19 11:40 16:13 20:39 Glucose POC Glucose 120 H 244 H 135 H 12/09/19 12/09/19 05:59 07:07 Glucose 98 POC Glucose 88 OUTPATIENT ANTIDIABETIC REGIMEN: * Glipizide 10mg QAM 5mg HS, Lantus 28u HS, Humalog SSI ASSESSMENT: 12/09 * Patient is currently receiving an average of 35 units of insulin per day * 20 units of basal insulin * 15 units of prandial/correctional insulin * BSGs ranging 88-244 over the past 24hrs * Risk factors for insulin resistance are constant over the past 24hrs * Anticipating insulin regimen will need decreased for the next 24hrs d/t : * AM Fasting BSG = 88 mg/dl; this is after 3 days of Lantus 20 units so will decrease basal insulin slightly to prevent hypoglycemia * Patient had a single postprandial BSG elevation yesterday. Will not make any adjustments until a trend is seen. 12/06 * Pt's BSGs have normalized. He is now ordered a diet. He is receiving vancomycin/zosyn. PLAN FOR INPATIENT GLYCEMIC CONTROL: * Continue to hold outpatient oral diabetes medications * Basal insulin - decrease by 10% * Lantus 18 units qHS * Bolus insulin - no change * NovoLog per scale ACHS or Q6hrs while NPO * Goal Range: Low 120 mg/dL - High 160 mg/dL * Correction Factor: 25 mg/dL/unit * Nutritional / Prandial insulin per carb ratio of 1 unit per 8 grams CHO consumed
--- NOTE | 2019-12-09 10:39 | Nephrology Progress Note ---
Date of Service December 09, 2019 Assessment & Plan (1) Wjbqw-iv-sevxzfe kidney injury: -- Baseline Cr ~ 2.4. Patient has underlying diabetic nephropathy. -- FeNa was < 1%. Creatinine is now nearing baseline w/ IV hydration. Electrolyte balance is acceptable. Urine sediment is benign -- Urinalysis reveals proteinuria c/w diabetic nephropathy -- Abdominal imaging was performed without IV contrast and was negative for obstruction -- SHILOH is potentially related to Vancomycin therapy. Note that cultures are negative, patient is afebrile and WBC# has normalized. Agree w/ stopping Vancomycin therapy -- Will place order in EMR for outpatient Nephrology follow up in 7 - 10 days. I have instructed patient to complete blood and urine studies 1 - 2 days prior to his visit Subjective Mr. Rea was seen & examined in his hospital room this morning. He denies nausea and had no further episodes of emesis. Mr. Rea reports that he has tolerated IV hydration well and is urinating without difficulty. He is anxious to be discharged. He has a pending outpatient Ophthalmology appointment due to reduced visual acuity in R eye Review of Systems Constitutional: + weakness; no fever and no chills Eyes: + worsening vision and + problem reported loss of vision R eye Ear, Nose, Mouth, Throat: no problem reported Respiratory: no cough and no dyspnea Cardiovascular: no chest pain, no palpitations and no edema Gastrointestinal: no abdominal pain, no nausea, no vomiting and no diarrhea/loose stools Genitourinary: no dysuria, no urinary hesitancy and no hematuria Musculoskeletal: no back pain Integumentary: no rash Neurologic: no falls, no dizziness and no confusion Physical Exam Constitutional: + overweight; not in distress Eyes: PERRL, conjunctivae normal, anicteric sclerae ENMT: external ear and nose normal, oropharynx normal Neck: trachea midline, no thyromegaly Respiratory: normal respiratory effort, lungs clear to auscultation Cardiovascular: RRR, no murmur, no edema Gastrointestinal (Abdomen): Inspection/Auscultation: + hypoactive bowel sounds Percussion/Palpation: abdomen nontender and no guarding Musculoskeletal: Extremities: no cyanosis Skin: no rashes, warm and dry Neurologic: awake; not confused Results & Data Vital Signs (Past 12 Hours) Vital Signs Temp Pulse Pulse Resp BP BP Pulse Ox 12/09/19 07:37 36.3 C L 60 18 179/84 H 94 12/09/19 04:32 36.6 C 65 19 162/71 H 92 12/09/19 02:39 66 12/08/19 23:50 36.3 C L 66 19 166/79 H 95 PG Care Time/CCT Total # of Minutes Spent Total Time Spent with Patient: Total time spent is greater than 50% in coordination of care (as documented) at patient's floor/unit and/or counseling patient: Coding Level of Care Code 59797 Subseq Hosp Care Lvl 2 Diagnoses Xlimh-dl-sxwlobf kidney injury N17.9; N18.9
--- NOTE | 2019-12-09 11:35 | Discharge Summary ---
Date of Service December 09, 2019 Admission HPI Per Admitting Provider Mr. Rea presents today for intractable vomiting. He is lethargic and his provides most of the history. He went to see his pcp on Monday for wheezing and right rib pain. He was given baclofen, doxycycline, and prednisone and sent for a CXR. He felt too ill to get the Xray. Yesterday he began vomiting. No blood in his emesis. No changes in bowels. No chest pain. No sick contacts.He has a history of right second toe amputation for osteomyelitis but finished his antibiotic course in August. 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 Family: heart disease Principal Diagnosis SHILOH, Nausea/vomiting, Right eye visual changes and exotropia Discharge Exam Constitutional WD/WN, vitals as above Eyes + anicteric sclerae and PERRL; no eyelid abnormality, no conjunctival abnorm ality, + abnormal accommodation, + EOM not intact (Right eye difficult to nasally deviate ,wanders), no anisocoria, no nystagmus and no photophobia Right eye acuity to bright light only Rt eye exotropia in neutral position but then can get him to move it if asked to focus on my finger with left eye during EOM testing ENMT external ear and nose normal, oropharynx normal Neck trachea midline, no thyromegaly Respiratory normal respiratory effort, lungs clear to auscultation Cardiovascular RRR, no murmur, no edema Chest (Breasts) Chest: normal inspection of chest Gastrointestinal (Abdomen) normal bowel sounds, soft, nontender, no hepatosplenomegaly Musculoskeletal Extremities: extremities normal to inspection; no cyanosis and no clubbing Skin no rashes, warm and dry right lateral foot with healed over scabbed wound Neurologic moves all extremities and awake; no focal motor deficits Psychiatric A+Ox3, euthymic affect Lymphatic no lymphedema Discharge Data Allergies Allergy/AdvReac Type Severity Reaction Status Date / Time No Known Allergies Allergy Verified 12/05/19 14:22 Consultations 12/05/19 15:55 ED Decision to Admit Stat 12/05/19 19:47 Consult Case Management - Discharge Planning Routine 12/07/19 11:49 Consult Nephrology Routine Ordered Studies 12/05/19 13:04 CT abd pelvis wo con Stat 12/05/19 19:47 CT chest wo con Stat 12/06/19 09:46 CT head/brain wo con Stat 12/06/19 19:50 US renal/blad retro comp Routine CXR Foot xray Hospital Course (1) Intractable vomiting: Resolved, was likely secondary to po doxycycline use as outpt given for bronchitis. CT abd/pelvis with chronic pancreatitis and multiple cysts and small indeterminate nodules on kidneys. 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 Rea has been complaining of decreased vision in his right eye starting 12/06. Per his opthamologist's office - Baseline vision is 20/400 in that eye. He has diabetic retinopathy and macular edema. He has received one dose of Avastin so far. Given his complaints, vitreous hemorrhage might be a possibility especially with his high blood pressures. He could also be experiencing worsening symptoms due to elevated blood sugars on admission. If it is a vitreal hemorrhage it will clear on its own and efforts to keep his blood pressure in check, keep head elevated and avoid bending over will be suffice for now. He can follow up up with Dr. Chong on Monday when he is in [place]. Patient is not describing anything concerning for retinal detachment Right eye also with exotropia but this may be secondary to the vision loss. MRI is unobtainable due to pacemaker (confirmed with [employer]), cannot perform CTA due to kidney function. Patient has no other concerning focal findings. - Amlodipine 10 mg added to regimen to better control blood pressures. 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 This is adjacent to chronic posttraumatic deformity - patient reports falling down the stairs last week. He denies hitting his head -continue tramadol prn pain (6) HTN (hypertension): BPs not well controlled -Continue home metoprolol, initiated amlodipine 10 mg (7) Urinary retention: Required Dye catheter placement 12/05. Prostate diminutive on CT. Urine i nitially dark brown with sediment, now clear. UA with 3+ blood likely from Dye trauma UC ngtd though this was taken after initiation of antibiotic. Given presentation, will treat for UTI - Augmentin for home CK wnl U/A on admission did have RBCs on microscopy - follow up with pcp Dye now removed and patient is able to void on his own. (8) Atrial fibrillation: With pacing - continue amiodarone and Eliquis (9) Type 2 diabetes mellitus: Hyperglycemic in the 300s on admission A1c 9.1 Held glipizide while inpatient but can restart on discharge Given CKD, caution with using opral hypoglycemics -continue insulin (10) Hyperlipidemia: Continue atorvastatin (11) CAD (coronary artery disease): Continue atorvastatin, metoprolol - not on ASA (12) History of osteomyelitis: As above Xray of foot neg for OM, wound is healed (13) Transaminitis: Marginal and chronic Alk phos also elevated at 168 - follow up with pcp, liver normal on CT (14) Pancreatic abnormality: Radiological evidence of chronic pancreatitis on CT Lipase wnl No epigastric or abdominal pain (15) Hypothyroidism: continue home levothyroxine TSH 3.7 (16) Depression: Continue duloxetine and sertraline (17) Pulmonary nodule: 10 mm HERBER nodule noted on CT CHest Needs close follow up as above (18) DVT prophylaxis: Eliquis Dispo: dc to home Total Time Total Time Spent Total Time Spent (In Minutes): 35 min Total Time Includes: Examination of the Patient, Discharge Planning and Medication Reconciliation Discharge Plan Discharge Items Patient Disposition: Home - Home Health Services Reason For Visit: VOMITING Discharge Diagnosis: Nausea/vomiting, Acute kidney injury, Visual changes, Headache Condition on Discharge: Fair Activity: Resume your previous activity Non-emergency contact: Primary Care Provider, Warning Analyst and Mechanic Welder Truck Driver Call non-emergency contact if: you have any medication questions, your symptoms worsen, your pain is not controlled, your pain is worsening, your pain is unusual for you and your pain is concerning for you Follow-up/Referrals: [facility] [Other] - 12/09/19 12:45 pm (Please, follow up at [facility] with Dr. Chong on MondayDecember 09 at 12:45 pm. *The office is located at [address] [place] [address] A in [place]. If you have any questions, call their office at [phone].) Shakeel Costa D.O. [Primary Care Provider] - (Please call to follow up in one week. Dr. Cali office will call pt with appointment within 1 day of discharge.) Diet: Carb Consistent or DM2 Addtl Attending Provider Instructions: (1) Intractable vomiting: This was likely caused by taking doxycycline. The CT of your abdomen/pelvis showed chronic pancreatitis and multiple cysts and small indeterminate nodules on kidneys. No obstructions. Please follow up with your primary care provider for any further imaging to follow the cysts/nodules The Xray of your right foot showed no apparent osteomyelitis CXR with chronic changes - Chest CT shows: Interval development of a predominantly solid nodule in the left upper lobe measuring 10 mm. This requires follow-up with your primary care provider and you will need repeat CT of the chest in the future to make sure it goes away. As this may represent infection, will complete a course of antibiotics with Augmentin. (2) Encephalopathy-Altered mental status: Please discontinue Baclofen as this may have contributed Your CT head of your head did not show any acute changes (3) Vision abnormalities: Unfortunately, your pacemaker does not allow us to perform a brain MRI to look for abnormalities, but the CT scan of your head was normal. - follow up with your retinal specialist at the above time after discharge - work with your doctor to better control your blood sugar - Amlodipine 10 mg added to your regimen to better control blood pressures. (4) CKD (chronic kidney disease) stage IV: with acute kidney injury Nephrology was consulted - please follow up with them outpatient to continue monitoring your kidney function. Have your blood and urine tests completed at the lab 1-2 days prior to your appointment. (5) Right flank pain: On CT - Acute fracture of the posterior right seventh rib. Continue Tylenol and lidoderm patches for pain relief. You can take tramadol for severe pain, but this can also cause drowsiness so please use sparingly. (6) HTN (hypertension): Continue home metoprolol, initiated amlodipine 10 mg once daily (7) Urinary retention: Required Dye catheter placement 12/05. Prostate diminutive on CT. Urine initially dark brown with sediment, now clear. Urinalysis on admission did have red blood cells on microscopy - follow up with pcp Dye now removed and you are able to void on your own. (8) Atrial fibrillation: With pacing - continue amiodarone and Eliquis (9) Type 2 diabetes mellitus: Hyperglycemic in the 300s on admission A1c 9.1 Please work with your doctor to better control your blood sugars Pending Studies at Discharge: Yes Studies:: Final blood cultures Stand-Alone Forms: My [facility] Medications and DC Order Prescriptions: New amlodipine [Norvasc] 5 mg Tablet 10 mg PO QAM Qty: 30 RF: 1 amoxicillin-pot clavulanate [Augmentin] 500-125 mg tablet 1 tab PO BID Qty: 8 RF: 0 acetaminophen [Mapap (acetaminophen)] 325 mg Tablet 650 mg PO Q4H PRN (Reason: pain) Qty: 30 RF: 0 lidocaine 5 % Adhesive Patch,Medicated 1 patch transdermal QAM PRN (Reason: rib pain) Qty: 15 RF: 0 tramadol 50 mg tablet 25 - 50 mg PO BID PRN (Reason: pain, severe) Qty: 10 RF: 0 Continued nitroglycerin 0.4 mg Tablet, Sublingual 0.4 mg sublingual DIRECTED PRN (Reason: Angina) RF: 0 Symbicort 80-4.5 mcg/actuation Hfa Aerosol Inhaler 2 puff INHALATION HS RF: 0 atorvastatin 40 mg tablet 40 mg PO HS RF: 0 amiodarone 200 mg tablet 200 mg PO HS RF: 0 levothyroxine 100 mcg tablet 100 mcg PO QAM RF: 0 omeprazole 20 mg Capsule,Delayed Release(Dr/Ec) 20 mg PO QAM RF: 0 sertraline 50 mg tablet 50 mg PO HS RF: 0 ezetimibe 10 mg tablet 10 mg PO QAM RF: 0 duloxetine 60 mg capsule,delayed release(DR/EC) 60 mg PO QAM RF: 0 PreserVision AREDS [id number] iulx-um-ilds Tablet 1 tab PO BID RF: 0 Eliquis 5 mg tablet 5 mg PO BID RF: 0 metoprolol succinate 100 mg tablet extended release 24 hr 50 mg PO QAM RF: 0 glipizide 5 mg tablet extended release 24hr 5 mg PO HS RF: 0 glipizide 5 mg tablet extended release 24hr 10 mg PO QAM RF: 0 albuterol sulfate [ProAir HFA] 90 mcg/actuation Hfa Aerosol Inhaler 2 puff INHALATION QID PRN (Reason: Shortness Of Breath Or Wheezing) RF: 0 insulin lispro [Humalog KwikPen Insulin] 100 unit/mL Insulin Pen 10 - 15 unit SUBCUT ACHS RF: 0 Changed Basaglar KwikPen U-100 Insulin 100 unit/mL (3 mL) insulin pen 18 unit subcut HS Qty: 0 RF: 0 Discontinued baclofen 10 mg tablet 5 - 10 mg PO TID PRN (Reason: Muscle Spasm) RF: 0 doxycycline monohydrate 100 mg capsule 100 mg PO BID RF: 0 Discharge Orders: Discharge Order (Routine); Ordered 12/09/19 Ordered By: Betsy Roach/Other Patient Handouts: Diabetes Nursing Home Complications, Diabetes Resources, Diabetes Healthy Meals, Understanding Carbohydrates, Diabetes Exercise Benefits, Diabetes Manage A1C Test Admission Data Admit Date/Time: 12/05/19 18:21 Attending Provider: Betsy Ordonez Admit Provider: Poncho Lopes Primary Care Provider: Shakeel Costa Other Providers: Holden Burris ; Keegan Shah Other Interventions: Discharge Summary Assessment (RN) Last Done: 12/09/19 11:36 DC Date/Time DO NOT enter until pt leaves facility: 12/09/19 11:52 Coding Level of Care Code D/C Day Management >30 mins Diagnoses Intractable vomiting R11.2 Nausea presence: with nausea Vomiting type: unspecified Encephalopathy G93.40 Vision abnormalities H53.9 CKD (chronic kidney disease) N18.9 Chronic kidney disease stage: unspecified stage Right flank pain R10.9 HTN (hypertension) I10 Urinary retention R33.9 Atrial fibrillation I48.91 Type 2 diabetes mellitus E11.621; L97.509; Z79.4 Diabetes mellitus complication detail: with foot ulcer Diabetes mellitus complication status: with skin complications Diabetes mellitus vermin exterminator insulin use: with vermin exterminator use Hyperlipidemia E78.5 CAD (coronary artery disease) I25.10 History of osteomyelitis Z87.39 Transaminitis R74.0 Pancreatic abnormality Q45.3 Hypothyroidism E03.9 Depression F32.9 Pulmonary nodule R91.1 DVT prophylaxis Z29.9
[2019-12-09] MEDS ORDERED: INSULIN GLARGINE SOLOSTAR 100 UNITS/ML 3 ML PEN SQ SCH (21:00)
== END 2019-12-09 11:52 | disposition home health service (06) ==
LOC: ED 12:11 → SUATTDRO 18:21 → 2S 18:21 → INTOOBSV 18:21 → 2S 19:20